=== PATIENT | female | born 1950 ===

== ENCOUNTER 2020-05-18 20:25 | Inpatient (IN) | payer MEDICARE, OTHER ==
[~2020-05-18] VITALS: Ht 167.6 cm; Wt 84.1 kg
[2020-05-18] MEDS ORDERED: LORazepam 0.5 MG TABLET PO PRN (21:15)
[2020-05-18] MEDS ORDERED: CALCIUM CARBONATE 500 MG TAB.CHEW PO PRN (21:15)
[2020-05-18] MEDS ORDERED: ALBUTEROL SULFATE 2.5 MG/3 ML NEBU. IH PRN (21:15)
[2020-05-18] MEDS ORDERED: ALBUTEROL SULFATE 2.5 MG/3 ML NEBU. NEB PRN (21:15)
[2020-05-18] MEDS ORDERED: cloNIDine HCL 0.1 MG TABLET PO PRN (21:15)
[2020-05-18] MEDS ORDERED: POLYETHYLENE GLYCOL 3350 17 GM PACKET. PO PRN (21:15)
[2020-05-18] MEDS ORDERED: ACETAMINOPHEN 500 MG TABLET PO PRN (21:15)
[2020-05-18] MEDS ORDERED: CLON0.1T PO (21:38)
[2020-05-18] MEDS ORDERED: AMLO5TAB10 PO (21:38)
[2020-05-18] MEDS ORDERED: HYDR-2155 PO (21:38)
[2020-05-18] MEDS ORDERED: MONT10TA80 PO (21:38)
[2020-05-18] MEDS ORDERED: CALC500T31 PO (21:38)
[2020-05-18] MEDS ORDERED: ACET500T68 PO (21:38)
[2020-05-18] MEDS ORDERED: TIOT18CA IH (21:38)
[2020-05-18] MEDS ORDERED: CHOL10002 PO (21:38)
[2020-05-18] MEDS ORDERED: LOSA100T2 PO (21:38)
[2020-05-18] MEDS ORDERED: CARV25TA2 PO (21:38)
[2020-05-18] MEDS ORDERED: POLY17PO5 PO (21:38)
[2020-05-18] MEDS ORDERED: MOME13HF IH (21:38)
[2020-05-18] MEDS ORDERED: MELA5TAB20 PO (21:38)
[2020-05-18] MEDS ORDERED: ZIPR40CA2 PO ×2 (21:38)
[2020-05-18] MEDS ORDERED: LORA-254 PO (21:38)
[2020-05-18] MEDS ORDERED: ALBU2.5V8 IH (21:38)
[2020-05-18] MEDS ORDERED: ALBU2.5V5 NEB (21:38)
[2020-05-18] MEDS ORDERED: VITA1TAB19 PO (21:38)
[2020-05-18] MEDS ORDERED: CRESTOR5 MG PO (21:38)
[2020-05-18] MEDS ORDERED: ACETAMINOPHEN 325 MG TABLET PO PRN (21:45)
[2020-05-18] MEDS ORDERED: MAGNESIUM HYDROXIDE 2,400 MG/30 ML ORAL.SUSP. PO PRN (21:45)
[2020-05-18] MEDS ORDERED: MAG HYDROX/AL HYDROX/SIMETH 30 ML ORAL.SUSP PO PRN (21:45)
[2020-05-18] MEDS ORDERED: METHYL SALICYLATE/MENTHOL TOPICAL OINTMENT 57GM TUBE. TP PRN (21:45)
[2020-05-18 22:24] VITALS: BP 196/71
[2020-05-18] MEDS: LOSARTAN 50 MG TABLET. PO SCH (22:32)
[2020-05-18] MEDS: MONTELUKAST 10 MG TABLET. PO SCH (22:32)
[2020-05-18] MEDS: MELATONIN 3 MG TABLET PO SCH (22:32)
[2020-05-18] MEDS: ATORVASTATIN CALCIUM 20 MG TABLET PO SCH (22:32)
[2020-05-18] MEDS: ZIPRASIDONE 80 MG CAPSULE. PO SCH (22:32)
[2020-05-18] MEDS: HYDROcodone/APAP 5/325MG 1 TAB TABLET PO PRN (22:35)
--- NOTE | 2020-05-18 22:44 | PDOC ---
Exam Note: Mik Note: Please also refer to the separate dictated note~for this date of service dictated separately.~Patient seen individually. Discussed the patient with Nursing staff reviewed the chart.~Reviewed interim history and current functioning. Reviewed vital signs,~Labs/ Radiology~and current medications noted below. Continue current treatment with the changes noted in the dictated addendum note Assessment: Vital Signs/I&O: Vital Signs Date Time Temp Pulse Resp B/P (MAP) Pulse Ox O2 Delivery O2 Flow Rate FiO2 05/18/20 22:35 92 05/18/20 22:32 79 196/71 05/18/20 22:24 98.3 20 Current Medications: Meds: Current Medications Medications (Trade) Dose Ordered Sig/Justin Route PRN Reason Start Time Stop Time Status Last Admin Dose Admin Acetaminophen/ Hydrocodone Bitart (Lortab 5/325) 1 tab PRN Q4HRS PRN PO PAIN 05/18/20 21:15 05/18/20 22:35 Montelukast Sodium (Singulair) 10 mg HS PO 05/18/20 22:30 05/18/20 22:32 Ziprasidone (Geodon) 80 mg QHS PO 05/18/20 22:30 05/18/20 22:32 Losartan Potassium (Cozaar) 100 mg HS PO 05/18/20 22:30 05/18/20 22:32 Melatonin (Melatonin) 4.5 mg HS PO 05/18/20 22:30 05/18/20 22:32 Atorvastatin Calcium (Lipitor) 20 mg QHS PO 05/18/20 22:30 05/18/20 22:32 I have reviewed the current psychotropics carefully including drug interactions. Risk benefit ratio favors no change other than as noted in my dictated progress note. TYLER NEGRO MD May 18, 2020 22:44
--- NOTE | 2020-05-18 22:52 | NUR ---
Admission Note with Justification for Admission to [facility] Patient admitted to [facility] for protective oversight for emergency stabilization of acute psychiatric crisis. Pt admitted from: [facility]/ Matty HEALY Mode of arrival: Secure Transport Accompanied By: Secure Transport Precipitating behaviors that initiated intake and admission:anxiety, agitation, manic, defiant, guarded, paranoid, refusing medications, not sleeping, psychogenic polydipsia Description of failure of out patient attempts at stabilization in previous setting list behavior and medication trials: med changes at [facility] Behaviors and assessment findings upon admission: A/O x3, manic, particular, suspicious of medications Plan: Admit for protective oversight for adjustment and stabilization of medications, behaviors and mood. Intense treatment regimen including groups, medication adjustments, therapy, consistent regimen for ADL's, self care, and sleep hygiene. Daily monitoring by Inpatient staff, Psychiatry, and Medical Physician.
[2020-05-19 06:28] VITALS: BP 117/70
[2020-05-19 07:30] LABS: BASO % 1 % (0-3); EOS # 0.1 x10^3/uL (0.0-0.7); EOS % 2 % (0-3); HEMATOCRIT 35.1 % (36.0-47.0); HEMOGLOBIN 11.8 g/dL (12.0-15.5); LYMPH # 0.8 x10^3/uL (1.0-4.8); LYMPH % 12 % (24-48); MEAN CORPUSCULAR HEMOGLOBIN 29 pg (25-35); MEAN CORPUSCULAR HGB CONC 34 g/dL (31-37); MEAN CORPUSCULAR VOLUME 87 fL (79-100); MONO # 0.8 x10^3/uL (0.0-1.1); MONO % 11 % (0-9); NEUT % 74 % (31-73); PLATELET COUNT 430 x10^3/uL (140-400); RED BLOOD COUNT 4.05 x10^6/uL (3.50-5.40); RED CELL DISTRIBUTION WIDTH 13.4 % (11.5-14.5); WHITE BLOOD COUNT 6.7 x10^3/uL (4.0-11.0)
[2020-05-19 07:40] LABS: ALBUMIN 3.1 g/dL (3.4-5.0); ALBUMIN/GLOBULIN RATIO 0.9 (1.0-1.7); CALCIUM 8.7 mg/dL (8.5-10.1); CREATININE 0.8 mg/dL (0.6-1.0); GFR 70.9; MAGNESIUM 2.2 mg/dL (1.8-2.4); POTASSIUM 4.2 mmol/L (3.5-5.1); TOTAL BILIRUBIN 0.3 mg/dL (0.2-1.0); TOTAL PROTEIN 6.7 g/dL (6.4-8.2)
[2020-05-19] MEDS ORDERED: NON FORMULARY ITEM (Mometasone/Formoterol (Dulera 200 Mcg/5 Mcg Inhaler) 2 PUFF) IH SCH (09:00)
[2020-05-19] MEDS ORDERED: NON FORMULARY ITEM (Tiotropium Bromide (Spiriva) 18 MCG) IH SCH (09:00)
[2020-05-19] MEDS: FLUTICASONE/VILANTEROL 200/25 INHALER. INH SCH (10:16)
[2020-05-19] MEDS: ZIPRASIDONE 40 MG CAPSULE. PO SCH (10:21)
[2020-05-19] MEDS: VITAMIN B COMPLEX CAPSULE. PO SCH (10:22)
[2020-05-19] MEDS: amLODIPine BESYLATE 5 MG TABLET PO SCH (10:23)
[2020-05-19] MEDS: CHOLECALCIFEROL (VITAMIN D3) 1,000 UNIT TABLET PO SCH (10:24)
[2020-05-19] MEDS: CARVEDILOL 6.25 MG TABLET PO SCH ×3 (10:30→17:44)
[2020-05-19 10:32] VITALS: BP 154/86
--- NOTE | 2020-05-19 13:37 | NUR ---
Patient is demanding and stated "I pick and choose which medications I take". She refused Geodon, norvasc and miralax. She stated that her doctor gives her all of her Geodon at bed time. She doesn't believe in norvasc and she will not take miralax because she has "no troubles" with her bowels. Nurse provided education on each medication and patient continued to refuse to take them. Patient yelling for nurse to adjust her bed and then yelling for water. Patient is complaining that she cannot breathe when on 5L oxygen. Patient sat is 100% when checked. Patient ambulates ad merlyn bur uses wheel chair related to her oxygen tank when out of her room.
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
[2020-05-19 16:03] VITALS: BP 173/80
--- NOTE | 2020-05-19 16:27 | NUR ---
Patient has been demanding and rude most of the afternoon. When Dr Doran did her medical assessment, she was more concerned about his nationality and examining his "credentials". She proceeded to read the back of his badge out loud and then started to read the rest of the things on his badge reel. She was fixated on his name, saying it multiple times and then asking "are you an arab?" and she rudely stated that his name was "foreign" and that this nurse would be needed as an "harness cleaner". Patient yelled all of the answers to every question that Dr Doran asked her, as if Dr Doran was hard of hearing, yelling that she has fluid retention in her ankles and was laying with her feet above her heart, she insists that she must have caffeinated coffee "for the swelling" of her feet. She continues to state that she is leaving tomorrow and that she already has a psychiatrist from the [facility] and does not need inpatient psyche. She stated she is aware that she has HTN and insists she will only take Losartan with potassium, she stated that many times during the conversation. She was offered Lisinopril this morning for her BP but refused it. She was also demanding that her oxygen be turned up to 4L, which she does not need as she SATs at 96% on 2L, and she is demanding longer oxygen tubing. Nurse will return to room to discuss things further as patient was not asking any pertinent medical questions and was just continuing to be rude.
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
--- NOTE | 2020-05-19 17:00 | TX PLAN ---
Interdisciplinary Tx Plan Admission Information May 18, 2020 at 20:25 Legal Status (on Admission): Voluntary DPOA/Guardian Name: Cary Washington Contact Other Contact Name: Matty Gonzales Other Contact Verified Code Status: Full Code Allergies: Coded Allergies: No Known Drug Allergies (Unverified , 05/18/20) Diagnoses Primary Diagnosis: Bipolar D/O, depressed with psychotic features, Cognitive D/O, rule out Dementia Reasons for Admission: Agitated, Sig. Change Sleep, Suspicious/paranoid, Poor impulse control, Other Problem in Patient's Words: Her manic episodes have been increasing and are not properly managed Additional Admission Comments: According to the intake, she refuses medications at times, non-compliant with fluid restrictions, defiant, oppositional, guarded, paranoid, insomnia, calling her RESIDENTIAL at night, uncooperative, agitated, delusional and manic, dismisses staff, restless and fidgety. Problems Active Problems: resitive to medications manic non-compliance with fluid restriction Inactive Problems: None at this moment Pt Strengths/Limitations Ability for [place]: Poor Cognitive Functioning/Ability: Poor Communication Skills/Ability: Fair Financial Resources: Fair Insight/Judgement: Poor Intellectual Ability: Fair Physical Health: Poor Social Skills: Fair Stability in Family: Fair Stability in School/Work: Poor Verbal Skills: Fair Discharge Criteria Discharge Criteria: Able meet basic life need, No need for close observ., Adequate arrangements @DC, Improved behavior, Improved mood/thought Preliminary Discharge Plan Preliminary DC Plan: Assisted Living Special Precautions Fall Risk: Low Initial D/C Plan Pt at this time will plan to discharge back to [facility] once stable. Identified Discharge Needs: Psychiatric services Currently Utilized Resources Currently Utilized Resources/P: Primary Care Physician Psychiatric consultation Referrals Community Resources: Mental health services Identified Problems/Hx/Goals Objectives/Short-Term Goals Short Term Goals: Control abnormal behavior, Medication Stabilization, Promote Coping Skill Short Term Goals in Patient's: "I'm leaving here tonight" Interventions/Frequency Staff Interventions/Frequency&: Psychiatrist to assess pt at least 3x per week. Social Work to asses pt at least 2x per week. Nursing to assess medications, behaviors and complete 15 minute checks daily. Encourage group participation in activities or 1:1 engagement based of the activity dept. assessment. 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 Education: Did graduate high from [employer] Community Follow-up PCP mental health services Community Provider/Family Inpu: She has lived a very tumultuous life. The last 15 years have been her best and we'd like to make sure she can maintain longer [facility] Treatment Plan Explained Patient/Lead Sharepoint Developer had this treatment plan explained to him/her as indicated by the signature below and has been given the opportunity to ask questions and make suggestions: Date: Patient/Lead Sharepoint Developer Signature: Patient/Lead Sharepoint Developer Decline: SAQIB Hernandez May 19, 2020 17:00
--- NOTE | 2020-05-19 17:45 | NUR ---
Patient has taken her arm band of and is refusing to wear it because "Dr. Jimenez name" is on it and not her [facility] provider. Patient has stated multiple times that when we get an "Wallisian doctor" she will THINK about wearing the arm band. Patients current blood pressure is 173/80 and she is refusing to take her 1700 Coreg. She had also refused her 0900 Lisinopril. Nurse provided education to patient regarding the effects of unregulated high blood pressure on the body. We reviewed heart attack, stroke, etc. Patient is a Full code, nurse explained the CPR process to patient and told her that it might be required if she has a heart attack or stroke., Patient continued to refuse to take the medications. Patient yelled that the "Helmet of Salvation' was hers and that God will protect her. Patient yelling and rude in the dining room to staff and upsetting her table mates. Patient went to her room after dinner. Patient does not currently have a hospital ID band on her arm, she stated she will "take off every single one that is put on her".
[2020-05-19 18:20] LABS: THYROID STIM HORMONE (TSH) 1.117 uIU/mL (0.358-3.740)
[2020-05-19 19:11] LABS: THYROXINE 6.5 ug/dL (4.5-12.0)
[2020-05-19] MEDS: ATORVASTATIN CALCIUM 20 MG TABLET PO SCH ×2 (21:00→21:16)
[2020-05-19] MEDS: LOSARTAN 50 MG TABLET. PO SCH ×2 (21:00→21:16)
[2020-05-19] MEDS: ZIPRASIDONE 80 MG CAPSULE. PO SCH (21:14)
[2020-05-19] MEDS: MONTELUKAST 10 MG TABLET. PO SCH (21:15)
[2020-05-19] MEDS: MELATONIN 3 MG TABLET PO SCH (21:17)
[2020-05-19] MEDS: HYDROcodone/APAP 5/325MG 1 TAB TABLET PO PRN (21:57)
--- NOTE | 2020-05-19 22:31 | PDOC ---
Exam Note: Mik Note: Please also refer to the separate dictated note~for this date of service dictated separately.~Patient seen individually. Discussed the patient with Nursing staff reviewed the chart.~Reviewed interim history and current functioning. Reviewed vital signs,~Labs/ Radiology~and current medications noted below. Continue current treatment with the changes noted in the dictated addendum note Assessment: Vital Signs/I&O: Vital Signs Date Time Temp Pulse Resp B/P (MAP) Pulse Ox O2 Delivery O2 Flow Rate FiO2 05/19/20 21:57 Nasal Cannula 4.0 05/19/20 21:16 77 173/80 05/19/20 16:03 98.5 20 96 I & O 0 05/18/20 05/18/20 05/19/20 14:59 22:59 06:59 Intake Total 120 ml Balance 120 ml Labs: Laboratory Tests Test 05/19/20 06:37 White Blood Count 6.7 x10^3/uL (4.0-11.0) Red Blood Count 4.05 x10^6/uL (3.50-5.40) Hemoglobin 11.8 g/dL (12.0-15.5) L Hematocrit 35.1 % (36.0-47.0) L Mean Corpuscular Volume 87 fL (79-100) Mean Corpuscular Hemoglobin 29 pg (25-35) Mean Corpuscular Hemoglobin Concent 34 g/dL (31-37) Red Cell Distribution Width 13.4 % (11.5-14.5) Platelet Count 430 x10^3/uL (140-400) H Neutrophils (%) (Auto) 74 % (31-73) H Lymphocytes (%) (Auto) 12 % (24-48) L Monocytes (%) (Auto) 11 % (0-9) H Eosinophils (%) (Auto) 2 % (0-3) Basophils (%) (Auto) 1 % (0-3) Neutrophils # (Auto) 5.0 x10^3uL (1.8-7.7) Lymphocytes # (Auto) 0.8 x10^3/uL (1.0-4.8) L Monocytes # (Auto) 0.8 x10^3/uL (0.0-1.1) Eosinophils # (Auto) 0.1 x10^3/uL (0.0-0.7) Basophils # (Auto) 0.0 x10^3/uL (0.0-0.2) Sodium Level 137 mmol/L (136-145) Potassium Level 4.2 mmol/L (3.5-5.1) Chloride Level 98 mmol/L (98-107) Carbon Dioxide Level 37 mmol/L (21-32) H Anion Gap 2 (6-14) L Blood Urea Nitrogen 8 mg/dL (7-20) Creatinine 0.8 mg/dL (0.6-1.0) Estimated GFR (Cockcroft-Gault) 70.9 BUN/Creatinine Ratio 10 (6-20) Glucose Level 107 mg/dL (70-99) H Calcium Level 8.7 mg/dL (8.5-10.1) Magnesium Level 2.2 mg/dL (1.8-2.4) Iron Level 43 ug/dL (50-170) L Total Iron Binding Capacity 295 ug/dL (250-450) Iron Saturation 15 % (15-34) Total Bilirubin 0.3 mg/dL (0.2-1.0) Aspartate Amino Transferase (AST) 22 U/L (15-37) Alanine Aminotransferase (ALT) 32 U/L (14-59) Alkaline Phosphatase 60 U/L (46-116) Total Protein 6.7 g/dL (6.4-8.2) Albumin 3.1 g/dL (3.4-5.0) L Albumin/Globulin Ratio 0.9 (1.0-1.7) L Triglycerides Level 65 mg/dL (0-150) Cholesterol Level 158 mg/dL (0-200) LDL Cholesterol, Calculated 82 mg/dL (0-100) VLDL Cholesterol, Calculated 13 mg/dL (0-40) Non-HDL Cholesterol Calculated 95 mg/dL (0-129) HDL Cholesterol 63 mg/dL (40-60) H Cholesterol/HDL Ratio 2.0 Thyroid Stimulating Hormone (TSH) 1.117 uIU/mL (0.358-3.740) Thyroxine (T4) 6.5 ug/dL (4.5-12.0) Total Triiodothyronine (TT3) 86 ng/dL (71-180) Current Medications: Meds: Current Medications Medications (Trade) Dose Ordered Sig/Justin Route PRN Reason Start Time Stop Time Status Last Admin Dose Admin Vitamin D (Vitamin D3) 1,000 unit DAILY PO 05/19/20 09:00 05/19/20 10:24 Montelukast Sodium (Singulair) 10 mg HS PO 05/18/20 22:30 05/19/20 21:15 Ziprasidone (Geodon) 40 mg DAILY PO 05/19/20 09:00 05/19/20 10:21 Ziprasidone (Geodon) 80 mg QHS PO 05/18/20 22:30 05/19/20 21:14 Carvedilol (Coreg) 6.25 mg BIDWMEALS PO 05/19/20 08:00 05/19/20 10:30 Losartan Potassium (Cozaar) 100 mg HS PO 05/18/20 22:30 05/19/20 21:16 Melatonin (Melatonin) 4.5 mg HS PO 05/18/20 22:30 05/19/20 21:17 Atorvastatin Calcium (Lipitor) 20 mg QHS PO 05/18/20 22:30 05/18/20 22:32 Vitamin B Complex 1 cap DAILY PO 05/19/20 09:00 05/19/20 10:22 Fluticasone/ Vilanterol (Breo Ellipta 200-25 Mcg) 1 puff DAILY INH 05/19/20 09:00 05/19/20 10:16 I have reviewed the current psychotropics carefully including drug interactions. Risk benefit ratio favors no change other than as noted in my dictated progress note. Diagnosis: Problems: (1) Bipolar 1 disorder, manic, moderate SRUTHI,TYLER Khanna MD May 19, 2020 22:31
[2020-05-20 01:07] LABS: HEMOGLOBIN A1C 5.6 % (4.8-5.6)
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
--- NOTE | 2020-05-20 03:51 | CONS ---
DATE OF CONSULTATION: 05/19/2020 REASON FOR CONSULTATION: Medical management. HISTORY OF PRESENT ILLNESS: The patient is a 70-year-old female patient, currently residing at [facility], who was seen at [facility] and referred to this unit on account of being very anxious, agitated, manic like, defiant and oppositional, guarded and paranoid, refusing to participate in activities, refusing medication, not sleeping with psychogenic polydipsia. While here, she also refused Geodon, refused Norvasc. She said that she can only treat her blood pressure medication at night time with losartan and potassium. She also does not believe that diuretics are helpful and she has to lift her feet up and drink coffee to get rid of her fluid overload. During interviewing her, she was more concerned about what is written on my badge than answering any of my questions. All these symptoms apparently on a background of bipolar disorder, depressed with psychotic features, cognitive disorder and to rule out dementia. PAST MEDICAL HISTORY: Significant for hypertension, chronic obstructive pulmonary disease, chronic respiratory failure with hypoxia, obstructive sleep apnea, on CPAP. She has also chronic back pain. She insists that she wants to be on 4 to 5 liters continuously, although her oxygen saturation is between 96%-100% on 2 liters of oxygen. PAST SURGICAL HISTORY: Unremarkable. SOCIAL HISTORY: She is residing at [facility]. She does not smoke or drink alcohol. FAMILY HISTORY: Noncontributory. ALLERGIES: She has no known drug allergies. MEDICATIONS: She is currently on the following medications: Spiriva HandiHaler 1 inhalation once a day, albuterol sulfate 2 puffs every 4 hours and albuterol by nebulizer every 4 hours as needed and Crestor 5 mg at bedtime. She is on clonidine 0.1 mg every 4 hours, carvedilol 6.25 mg twice a day, amlodipine 5 mg once a day, losartan potassium 100 mg at bedtime, hydrocodone/APAP 5/325 one tablet every 4 hours, Tylenol 500 mg every 4, ziprasidone 80 mg at bedtime, ziprasidone 40 mg daily, lorazepam 0.5 mg every 6 hours, calcium carbonate 500 mg twice a day, Dulera 2 puffs twice a day, Singulair 10 mg at bedtime, polyethylene glycol 17 g daily, vitamin B complex one tablet once a day, cholecalciferol 25 mcg once a day, melatonin 5 mg at bedtime. PHYSICAL EXAMINATION: GENERAL: On examining her, she was resting with her feet elevated, in no apparent respiratory distress. There was no pallor, jaundice, cyanosis or thyromegaly. No jugular venous distention. Mild bilateral lower limb edema. VITAL SIGNS: Her heart rate was 77, blood pressure was 173/80, temperature was 98.5, respiratory rate was 20, and oxygen saturation was 96%. HEAD, EYES, EARS, NOSE AND THROAT: Showed normocephalic and atraumatic. NECK: Supple. HEART: As per examination in other places showed normal first and second heart sounds. No gallop, rub or murmur. CHEST: Shows central trachea, equally reduced expansion, reduced air entry, vesicular breath sounds. No crepitation or rhonchi. ABDOMEN: Slightly distended, soft, nontender. NEUROLOGIC: She is definitely awake, alert. All her cranial nerves seem grossly intact. EXTREMITIES: She moves extremities without difficulty. LABORATORY DATA: On admission showed a white cell count 6700, hemoglobin 11.8, hematocrit 35, MCV 87 and platelet count of 130,000 with normal manual differential. Her chemistry showed a serum sodium 137, potassium 4.2, chloride 98, bicarbonate 37, anion gap of 2, BUN 8, creatinine 0.8, estimated GFR was 71 mL per minute. Her glucose 107, calcium was 8.7, magnesium was 2.2. Total bilirubin, AST, ALT, alkaline phosphatase were normal. Total protein 6.7, albumin 3.1. ASSESSMENT AND PLAN: In summary, this is a 70-year-old female patient with multiple medical problems including hypertension, chronic obstructive pulmonary disease, chronic hypoxic respiratory failure, obstructive sleep apnea. She has also chronic back pain. She is clearly noncompliant and uncooperative with her medication. She only takes her losartan at night time and refused to take any other medication during the daytime. She has bizarre way of getting rid of her fluid overload by just elevating her feet and drinking coffee. She want to be in constant 4 to 5 liters of oxygen while her oxygen saturation is around 100% on 2 liters of oxygen; however, generally she seems to be medically stable. Her vital signs obviously showed very labile blood pressure and I would definitely discontinue clonidine because of the rebound effect. Her lab works are all within acceptable range. Obviously, her other lab works are still pending at the time of this dictation. Once they are viewed, I will make some necessary recommendation. Thank you, Dr. Watt, for allowing me to participate in the care of this patient. HORACIO RAMIREZ MD DR: SHAZIA/deana JOB#: [id number] / [id number]
[2020-05-20 05:58] VITALS: BP 188/81
--- NOTE | 2020-05-20 07:30 | NUR ---
Patient removed her hospital identification armband because "it doesn't say Dr Doran and it doesn't say DNR". Patient was admitted to Dr. Watt and patient record shows patient is a Full Code. Patient has DPOA and cannot change her own code status. Nurse discussed this with patient yesterday. Addendum: 05/20/20 at 1259 by SHOSHANA HEATH RN Patient agreeable to putting arm band back on after talking with tech. Patient now has arm band on.
--- NOTE | 2020-05-20 08:00 | NUR ---
Records request faxed to [facility] and [facility] for patients past psychiatric records per Dr. Watt request.
[2020-05-20] MEDS: HYDROcodone/APAP 5/325MG 1 TAB TABLET PO PRN ×2 (08:30→21:23)
[2020-05-20] MEDS: VITAMIN B COMPLEX CAPSULE. PO SCH (08:34)
[2020-05-20] MEDS: CHOLECALCIFEROL (VITAMIN D3) 1,000 UNIT TABLET PO SCH (08:34)
[2020-05-20] MEDS: CARVEDILOL 6.25 MG TABLET PO SCH ×2 (08:35→17:23)
[2020-05-20] MEDS: ZIPRASIDONE 40 MG CAPSULE. PO SCH (08:36)
[2020-05-20] MEDS: amLODIPine BESYLATE 5 MG TABLET PO SCH (08:37)
[2020-05-20] MEDS: FLUTICASONE/VILANTEROL 200/25 INHALER. INH SCH (08:38)
--- NOTE | 2020-05-20 10:34 | NUR ---
Patient refused to take her 0900 Geodon 40mg and amlodipine 5mg. She stated that she only takes Geodon at HS and never takes amlodipine, she only takes Losartan at HS. Education provided to patient, patient continued to refuse to take medications.
--- NOTE | 2020-05-20 12:43 | NUR ---
Patient spent the morning sleeping in her room between breakfast and dinner. She has been social with her tablemates at meals. She will take select medications only that she picks and chooses. Patient says "God Bless You' and similar things during every interaction with staff. Staff is unsure if she is being sarcastic or sincere. Possible religiosity, she spoke with peer about God, faith, etc during breakfast. Her daughter called to speak to her during lunch and stated she would call back.
--- NOTE | 2020-05-20 13:19 | NUR ---
FINN returned call to pt Cary goff as requested and ended up leaving a message asking for a returned phone call.
--- NOTE | 2020-05-20 13:22 | HP ---
ADMIT DATE: 05/19/2020 PSYCHIATRIC ADMISSION HISTORY/EVALUATION This late entry 05/19/2020 covers elements not covered in my initial note. SUBJECTIVE: I met with the patient evening of 05/19/2020. Previously discussed with Sapna Chester, coordinator of placement and reviewed information from [facility] and a psychiatric consult with Dr. Carbajal on 05/15/2020, recommending inpatient psychiatric stabilization for her bipolar disorder. IDENTIFYING DATA: The patient is a 70-year-old female referred as noted above from [facility] after she had a psychiatric consult with Dr. Carbajal. She has been extremely manic, agitated, anxious, defiant, difficult to redirect. She has been paranoid, psychotic, refusing to participate in activities, refusing medications, having marked insomnia, psychogenic polydipsia. She is grandiose, irritable with marked mood lability, has failed outpatient psychiatric interventions resulting in this referral. CHIEF COMPLAINT: "What congregational are you." Apparently prior to my visiting, the patient had been extremely upset, asking for the congregational of different staff members and attending physicians and extremely distraught, agitated. HISTORY OF PRESENT ILLNESS: The patient has a history of bipolar disorder. The patient has been treated outpatient in [place], [place] and recently has been extremely manic, grandiose, paranoid. The patient's behaviors have been deemed dangerous, unmanageable, and she has failed outpatient psychiatric interventions resulting in this referral. PAST PSYCHIATRIC HISTORY: As above. MEDICAL HISTORY: Positive for SIADH, hyponatremia, COPD, hypertension, chronic respiratory failure with hypoxia, obstructive sleep apnea with CPAP. DIET: Regular, 1300 mL fluid restriction. Takes medications whole with milk followed by water at night, ambulates ad merlyn. UA 05/11/2020 at [facility] was negative. CODE STATUS: Full code. ALLERGIES: Negative. CURRENT PSYCHOTROPICS: Melatonin 4.5 mg at bedtime, Geodon 80 mg at bedtime, 40 mg a.m., Ativan p.r.n., Zyprexa p.r.n. She remains on 4-5 liters oxygen continuous. FAMILY HISTORY: Noncontributory. SOCIAL HISTORY: No history of alcohol, drug abuse, physical, sexual or elder abuse. She is not known to be a perpetrator. REACTION TO HOSPITALIZATION: The patient accepting of it. ASSETS: Supportive family. MENTAL STATUS EXAMINATION: The patient was seen individually evening of 05/19/2020. She is extremely loud, hyperverbal, domineering almost disruptive, but much better towards the end of our visit. Speech coherent, rapid. Abstraction fair, computation impaired, language function intact, attention span short. Mood and affect labile and grandiose. No active suicidal or homicidal ideation. LABORATORY DATA: Reviewed. IMPRESSION: Bipolar 1 disorder, manic with psychotic features; anxiety disorder, unspecified; impulse control disorder, unspecified. Rest as above including chronic obstructive pulmonary disease with 4-5 liters oxygen and the patient is wanting even more oxygen. PLAN: Admit to Geropsychiatry Unit at [facility]. I will see the patient daily individually from a psychiatric standpoint. Medical followup with Dr. Doran/Dr. Bowie. Continue the patient on her current psychotropics. Consider adding Depakote as a mood stabilizer or lithium, adjusting the Geodon, may get an EKG to make sure QTC is unremarkable on the Geodon. Estimated length of stay 10-12 days. DISPOSITION: Plans possibly home with outpatient psychiatric treatment. She is being admitted by her power of criminal defense attorney, Cary Pina, her daughter. TYLER NEGRO MD DR: MICHELLE/deana JOB#: [id number] / [id number]
[2020-05-20 16:04] VITALS: BP 198/78
[2020-05-20] MEDS: DIVALPROEX ER 500 MG TAB.ER.24H PO SCH ×2 (21:00→21:03)
[2020-05-20] MEDS: ATORVASTATIN CALCIUM 20 MG TABLET PO SCH ×2 (21:00→21:04)
[2020-05-20] MEDS: MONTELUKAST 10 MG TABLET. PO SCH (21:02)
[2020-05-20] MEDS: ZIPRASIDONE 80 MG CAPSULE. PO SCH (21:03)
[2020-05-20] MEDS: MELATONIN 3 MG TABLET PO SCH (21:03)
[2020-05-20] MEDS: LOSARTAN 50 MG TABLET. PO SCH (21:03)
--- NOTE | 2020-05-20 22:31 | PDOC ---
Exam Note: Mik Note: Please also refer to the separate dictated note~for this date of service dictated separately.~Patient seen individually. Discussed the patient with Nursing staff reviewed the chart.~Reviewed interim history and current functioning. Reviewed vital signs,~Labs/ Radiology~and current medications noted below. Continue current treatment with the changes noted in the dictated addendum note Assessment: Vital Signs/I&O: Vital Signs Date Time Temp Pulse Resp B/P (MAP) Pulse Ox O2 Delivery O2 Flow Rate FiO2 05/20/20 21:23 Nasal Cannula 05/20/20 21:03 89 198/78 05/20/20 16:04 97.8 18 91 05/20/20 05:58 4.0 I & O 05/19/20 05/19/20 05/20/20 15:00 23:00 07:00 Intake Total 720 ml 600 ml Balance 720 ml 600 ml Current Medications: Meds: Current Medications Medications (Trade) Dose Ordered Sig/Justin Route PRN Reason Start Time Stop Time Status Last Admin Dose Admin Divalproex Sodium (Depakote Er) 500 mg QHS PO 05/20/20 21:00 05/20/20 21:03 I have reviewed the current psychotropics carefully including drug interactions. Risk benefit ratio favors no change other than as noted in my dictated progress note. Diagnosis: Problems: (1) Anxiety disorder, unspecified (2) Impulse control disorder, unspecified (3) Chronic obstructive pulmonary disease (COPD) (4) Bipolar 1 disorder, manic, moderate TYLER NEGRO MD May 20, 2020 22:31
--- NOTE | 2020-05-21 01:15 | NUR ---
Deepthi pt has been in her room she has been pleasant and social with staff. She is much calmer tonight and speaking in a normal tone, instead of yelling as last night. She took meds whole after ID of them in sealed pack and correct shape color and dose. She refused to take her Lipitor and Depakote. She was somewhat less somatic and made no racial comments tonight. PRN hydrocodone given HS and she has been sleeping well.
[2020-05-21] MEDS: HYDROcodone/APAP 5/325MG 1 TAB TABLET PO PRN ×4 (01:44→20:38)
--- NOTE | 2020-05-21 05:20 | NUR ---
Prn hydrocodone was given on request at 0144 and she has slept well since.
[2020-05-21 06:25] VITALS: BP 184/77
[2020-05-21] MEDS: CHOLECALCIFEROL (VITAMIN D3) 1,000 UNIT TABLET PO SCH (09:43)
[2020-05-21] MEDS: VITAMIN B COMPLEX CAPSULE. PO SCH (09:46)
[2020-05-21] MEDS: FLUTICASONE/VILANTEROL 200/25 INHALER. INH SCH (09:46)
--- NOTE | 2020-05-21 10:14 | NUR ---
WEEKLY NOTE: Pt is eating 75% of meals and sleeping on average 6 hours per night. Pt is very withdrawn to her room but comes out to meals; visiting mainly with peers. Pt is still refusing her morning Geodon and Nornicolasac. Pt is hyper-sabianist and tells everyone who walks out of her room "God Bless You". Pt did start on Depakote 500mg q HS with labs and levels on 05/23. Pt will plan to return to [facility] with the recommendation to start services at the [facility]. MICHELLE for the end of next week, latter part of the week after. SW to keep all parties up to date and finalize discharge plans when the time comes.
--- NOTE | 2020-05-21 11:45 | NUR ---
ACTIVITY THERAPY ASSESSMENT Completed based on observation, interview and notes. Pt. was in her room with the door closed. TRUCK TRAILER MECHANIC knocked and opened the door to find Pt. looking out the window, with a hand over her heart, reciting the Pledge of Allegiance. She explained she saw a flag and felt like she had to say it. She talked quickly and immediately asked who TRUCK TRAILER MECHANIC was and what she wanted. Pt. remembered TRUCK TRAILER MECHANIC lead a group the other day. Pt. was hyperverbal and jumped topics quickly, asked for housekeeping to bring fresh towels for her to dry her hands, asked to eat lunch in her room, explained how she was told to lay on her left side to reduce her blood pressure and was told a nurse was going to come back at a certain time to check her blood pressure but it had to be with her own cuff that was locked in her closet. She pointed out her bruised arms related to all the blood being drawn. She refuses to give any more blood. She went on to talk about needing her medication at a certain time, had several back injuries (claimed a chiropractor "royally" messed her up) that cause her left foot to swell sometimes. She went further, concerned about her personal belongings, needing to pay her rent by May 29 and sending off her DNR paperwork. Pt apologized for yelling at [facility] and appreciated her writing everything down. 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 Pt quickly clarified she has yet to see a social work job titles and her daughter has yet to talk to the social work job titles either. Pt. got on the topic of her hair and wanting certain products, then it went to liking a tattoo a CHAPTER RELATIONS ADMINISTRATOR had then she explained she wanted a tattoo and would get a little turtle on her ankle because she would catch turtles with her dad when they went mushroom hunting. Pt. was very concerned about her oxygen, what level she should be on, not having a long enough tubing to go to the bathroom and about her blood pressure. She talked about the doctors and how she didn't understand she couldn't talk to Sana Mustafa at the [facility] because that is who she worked with all the time. She said she'd cooperate with Dr. Watt, happy he wears "[place]" clothes. She talked briefly about Dr. Doran and thought she should have a medical bracelet with his name on it if the "piece work checker" was her doctor TRUCK TRAILER MECHANIC asked if Pt wanted to lay down while she tried to help pass along her concerns. Pt. was appreciative and agreed to rest, asked TRUCK TRAILER MECHANIC to close her door. TRUCK TRAILER MECHANIC spoke to Pt's SW about DNR paper work, rent, and [facility] contact. TRUCK TRAILER MECHANIC rejoined Pt, updated her and the two walked to lunch. Pt. complimented TRUCK TRAILER MECHANIC's shoes and shirt, found commonalities with horses and Pt. believes she is a fellow "country girl."Pt. struggled to caught her breath as they walked, asked for a moment to do so. She shared her leisure interests and hobbies: varinder chi, shopping over the phone, watching comedies or [employer], reading newspaper, Facebook, texting, volunteering, embroidery/needlework, Bible study/ caodaism. She explained she was here because a cook at her facility was black and to a white person and they had "mulatto" kids. She talked about cook making the taco salad too salty. Pt. is often withdrawn to room, manic behaviors, can be loud and slightly disruptive. Initial goal aimed to increase socialization and relaxation: Pt. will participate in at least three Activity Therapy groups per week.
[2020-05-21] MEDS: amLODIPine BESYLATE 5 MG TABLET PO SCH (12:51)
[2020-05-21] MEDS: CARVEDILOL 6.25 MG TABLET PO SCH ×2 (12:51→15:07)
[2020-05-21] MEDS: ZIPRASIDONE 40 MG CAPSULE. PO SCH (12:56)
--- NOTE | 2020-05-21 14:04 | NUR ---
Pt in room for morning meds and assessment. Pt resistive to medications, refused bp meds and geodon but took later during lunch when nurse explained that pt stay would be longer if she continues to resist medications.
[2020-05-21 15:55] VITALS: BP 195/76
[2020-05-21] MEDS: ZIPRASIDONE 80 MG CAPSULE. PO SCH (20:36)
[2020-05-21] MEDS: LOSARTAN 50 MG TABLET. PO SCH (20:37)
[2020-05-21] MEDS: MONTELUKAST 10 MG TABLET. PO SCH (20:38)
[2020-05-21] MEDS: MELATONIN 3 MG TABLET PO SCH (20:38)
[2020-05-21] MEDS: ATORVASTATIN CALCIUM 20 MG TABLET PO SCH (20:44)
[2020-05-21] MEDS: DIVALPROEX ER 500 MG TAB.ER.24H PO SCH (20:44)
--- NOTE | 2020-05-21 22:19 | PDOC ---
Exam Note: Mik Note: Please also refer to the separate dictated note~for this date of service dictated separately.~Patient seen individually. Discussed the patient with Nursing staff reviewed the chart.~Reviewed interim history and current functioning. Reviewed vital signs,~Labs/ Radiology~and current medications noted below. Continue current treatment with the changes noted in the dictated addendum note Assessment: Vital Signs/I&O: Vital Signs Date Time Temp Pulse Resp B/P (MAP) Pulse Ox O2 Delivery O2 Flow Rate FiO2 05/21/20 20:38 22 94 Nasal Cannula 05/21/20 20:37 68 180/75 05/21/20 15:55 97.8 05/21/20 06:25 3.0 I & O 05/20/20 05/20/20 05/21/20 15:00 23:00 07:00 Intake Total 600 ml 240 ml 120 ml Balance 600 ml 240 ml 120 ml Current Medications: I have reviewed the current psychotropics carefully including drug interactions. Risk benefit ratio favors no change other than as noted in my dictated progress note. Diagnosis: Problems: (1) Bipolar 1 disorder, manic, moderate (2) Chronic obstructive pulmonary disease (COPD) (3) Impulse control disorder, unspecified (4) Anxiety disorder, unspecified TYLER NEGRO MD May 21, 2020 22:19
--- NOTE | 2020-05-21 23:51 | NUR ---
Pt in room at time of Dr. Watt visit and during assessment and med pass. She had a lengthy written list of things she felt she needed. Pt was resistive and argumentative with Dr. Watt and this nurse about her Geodon and Depakote prescriptions. Pt insisted her Geodon at [facility] is real Geodon and all purple but this one is the generic and different colors (blue and pink) and does not affect her as positively as the name brand version does. With encouragement, she expressed she would "think about taking the Depakote with the generic Geodon." She also requested that she could have a phone visit with her outside psychologist "Dr. Mustafa" to get a second opinion about taking the medications together. With encouragement pt did take the generic Geodon but insisted that she only get it at night and that it won't help her like the other one does (name brand). Pt wanted to know why she was taking 4.5mg of Melatonin instead of the 10mg she takes at home but with encouragement took the melatonin "just for today." Pt refused the Lipitor, insisting that we were told only Crestor helps her. Pt requested Lortab for pain. She asked that I review each med with her before scanning it then show it to her before opening it, then show it to her after opening it then identify it again individually before she swallowed it. Assured pt I would bring her concerns to the attention of the physician.
--- NOTE | 2020-05-22 05:09 | NUR ---
Pt called this nurse into her room to tell me that she decided she "would take the Depakote Dr. Watt prescribed to get out of here faster." She also insisted on a call to Dr. Mustafa again. It was explained that Dr. Watt is the house psychiatrist and he makes the decisions here and that Dr. Mustafa does not round here so that would not be possible. Pt started pacing and looking more agitated than before started talking about her "list made since Monday"...and all the things she needed in her locker and was "missing"..."red and black [place] bag that is sister's, pink and black bag, pink and blue hip hugger underwear, beige Vicky's Secret panties to wear under white clothes, [employer] blue jeans, pajama pants, washcloths..." Pt states she can't get ready in the morning without them. Assured pt would pass on to next shift. Explained combination of morning and evening Geodon administration. Pt seemed to understand for the moment with nonacceptance. Will continue to monitor.
[2020-05-22 06:20] VITALS: BP 166/77
[2020-05-22] MEDS: VITAMIN B COMPLEX CAPSULE. PO SCH (07:57)
[2020-05-22] MEDS: amLODIPine BESYLATE 5 MG TABLET PO SCH ×2 (07:57→08:28)
[2020-05-22] MEDS: CHOLECALCIFEROL (VITAMIN D3) 1,000 UNIT TABLET PO SCH (07:57)
[2020-05-22] MEDS: CARVEDILOL 6.25 MG TABLET PO SCH ×3 (07:58→19:35)
[2020-05-22] MEDS: FLUTICASONE/VILANTEROL 200/25 INHALER. INH SCH (07:58)
[2020-05-22 15:38] VITALS: BP 175/80
--- NOTE | 2020-05-22 16:20 | NUR ---
Pt very hyperverbal and had multiple c/o. Asked pt to slow down to address concerns one at a time. Pt states she is fasting today and plans to stay in room. Is only going to drink juice and milk for meals. Pt could not elaborate on her specific protestant. Pt BP high in am. Refused BP meds but took B12 and Vit D. Pt states she can just rest and lay on left side, this will lower her BP. Informed pt of risks of letting BP stay that high.
--- NOTE | 2020-05-22 16:30 | NUR ---
Per Dr Watt request, pharmacy consulted regarding pt non-compliance with BID dosing of Geodon. Dose was changed to total dose at HS. Pharmacy stated increased SE effects may be noted. Recommended EKG in 2-3 days and again in 1 week to monitor for QTc changes.
[2020-05-22] MEDS: DIVALPROEX ER 500 MG TAB.ER.24H PO SCH (19:20)
[2020-05-22] MEDS: MONTELUKAST 10 MG TABLET. PO SCH (19:20)
[2020-05-22] MEDS: ATORVASTATIN CALCIUM 20 MG TABLET PO SCH (19:20)
[2020-05-22] MEDS: LOSARTAN 50 MG TABLET. PO SCH (19:20)
[2020-05-22] MEDS: MELATONIN 3 MG TABLET PO SCH (19:36)
[2020-05-22] MEDS: ZIPRASIDONE 60 MG CAPSULE. PO SCH (19:36)
--- NOTE | 2020-05-22 22:30 | PDOC ---
Exam Note: Mik Note: Please also refer to the separate dictated note~for this date of service dictated separately.~Patient seen individually. Discussed the patient with Nursing staff reviewed the chart.~Reviewed interim history and current functioning. Reviewed vital signs,~Labs/ Radiology~and current medications noted below. Continue current treatment with the changes noted in the dictated addendum note Assessment: Vital Signs/I&O: Vital Signs Date Time Temp Pulse Resp B/P (MAP) Pulse Ox O2 Delivery O2 Flow Rate FiO2 05/22/20 19:35 83 175/80 05/22/20 15:38 97.4 20 97 4.0 05/22/20 06:20 Room Air I & O 05/21/20 05/21/20 05/22/20 15:00 23:00 07:00 Intake Total 600 ml 240 ml 120 ml Balance 600 ml 240 ml 120 ml Current Medications: Meds: Current Medications Medications (Trade) Dose Ordered Sig/Justin Route PRN Reason Start Time Stop Time Status Last Admin Dose Admin Ziprasidone (Geodon) 120 mg HS PO 05/22/20 21:00 05/22/20 19:36 Carvedilol (Coreg) 6.25 mg BID PO 05/22/20 21:00 05/22/20 19:35 Melatonin (Melatonin) 10.5 mg HS PO 05/22/20 21:00 05/22/20 19:36 I have reviewed the current psychotropics carefully including drug interactions. Risk benefit ratio favors no change other than as noted in my dictated progress note. Diagnosis: Problems: (1) Bipolar 1 disorder, manic, moderate (2) Chronic obstructive pulmonary disease (COPD) (3) Impulse control disorder, unspecified (4) Anxiety disorder, unspecified TYLER NEGRO MD May 22, 2020 22:30
--- NOTE | 2020-05-22 23:56 | NUR ---
Pt located in her room all evening. Pt irritable, rude and demanding. Pt refused her Depakote, Lipitor and Coreg medications. This RN attempted to educate pt on the importance of taking all of her medications, however pt was adamant that she was not going to take these certain medications. Pt was informed that she will not receive any PRN medications until she is compliant with her scheduled medications. Pt sarcastically thanked this nurse. Pt refused her shower this evening also.
[2020-05-23 06:52] VITALS: BP 172/91
--- NOTE | 2020-05-23 07:19 | PDOC ---
Exam Note: Mik Note: This note is a late entry for 05/20/2020 covers elements not covered in my initial note. Subjective: The patient was seen individually in the evening of 05/20/2020. Per Alana WATT, we reviewed the patients history. She has been treated at the [facility]. In the morning, she refused Geodon and Norvasc and states Geodon makes her sleepy. She has been hyper-presybeterian having presybeterian conversations, talking about the Lord with one of the other patients on the unit who is quite manic and psychotic. She was cooperative with showers. She slept 6-1/4 hours previous night. We have requested records from the [facility]. Review of Systems: No CV, , pulmonary, eye system symptoms on review. Mental Status Exam: Reasonably oriented. Speech coherent, rapid at times. Abstraction fair. Computation impaired. Language function intact. Attention span short. Mood and affect remains quite grandiose, manic. Laboratory Data: Reviewed. Impression: Bipolar disorder manic with psychotic features, anxiety disorder unspecified, impulse control disorder unspecified. Plan: Continue the patient on her current psychotropics. Geodon at current dosage. We may consider changing it all to the nighttime, maintaining melatonin 4.5 mg h.s., Ativan p.r.n., Zyprexa p.r.n. Start Depakote ER 500 mg h.s. as a mood stabilizer. Check CBC, CMP, valproic acid level in 3 days. Adjust further as clinically indicated. Assessment: Vital Signs/I&O: Vital Signs Date Time Temp Pulse Resp B/P (MAP) Pulse Ox O2 Delivery O2 Flow Rate FiO2 05/23/20 06:52 98.0 67 16 172/91 (118) 99 3.0 05/22/20 06:20 Room Air I & O 05/22/20 05/22/20 05/23/20 15:00 23:00 07:00 Intake Total 360 ml 580 ml Balance 360 ml 580 ml Current Medications: Meds: Current Medications Medications (Trade) Dose Ordered Sig/Justin Route PRN Reason Start Time Stop Time Status Last Admin Dose Admin Ziprasidone (Geodon) 120 mg HS PO 05/22/20 21:00 05/22/20 19:36 Carvedilol (Coreg) 6.25 mg BID PO 05/22/20 21:00 05/22/20 19:35 Melatonin (Melatonin) 10.5 mg HS PO 05/22/20 21:00 05/22/20 19:36 I have reviewed the current psychotropics carefully including drug interactions. Risk benefit ratio favors no change other than as noted in my dictated progress note. Diagnosis: Problems: (1) Bipolar 1 disorder, manic, moderate (2) Chronic obstructive pulmonary disease (COPD) (3) Impulse control disorder, unspecified (4) Anxiety disorder, unspecified TYLER NEGRO MD May 23, 2020 07:19
--- NOTE | 2020-05-23 07:47 | PDOC ---
Exam Note: Mik Note: This note is a late entry for 05/21/2020 covers elements not covered in my initial note. Subjective: The patient was seen individually in the morning of 05/21/2020 with treatment team meeting with [place] (social service staff), [facility] staff. Appetite average is 70%. She slept 5-1/2 hours previous night, somewhat withdrawn into her room, but hyperverbal. I had a very lengthy session with Melinda WATT as part of this session as well. She spends much time in her room, up for meals, refused the a.m. Geodon and Norvasc, attended one group. She remains hyperverbal, grandiose, hyper-denominational. Also discussed with Sana WATT in the evening. She reluctantly took her morning Geodon but insist she will only take it at night. She was refusing the Depakote. We had a lengthy discussion. She may agree to reconsider. Review of Systems: Vague somatic symptoms. No CV, , pulmonary, eye system symptoms on review. Mental Status Exam: Reasonably oriented. Speech coherent, rapid at times. Abstraction fair. Computation impaired. Language function intact. Attention span short. Mood and affect remains grandiose. Laboratory Data: Reviewed. Impression: Bipolar disorder manic with psychotic features, anxiety disorder unspecified, impulse control disorder unspecified. Plan: Continue psychotropics from initial note. She has been living at [facility] in [place]. Reviewed history at length. We will adjust Depakote to reach therapeutic level. Assessment: Vital Signs/I&O: Vital Signs Date Time Temp Pulse Resp B/P (MAP) Pulse Ox O2 Delivery O2 Flow Rate FiO2 05/23/20 06:52 98.0 67 16 172/91 (118) 99 3.0 05/22/20 06:20 Room Air I & O 05/22/20 05/22/20 05/23/20 14:59 22:59 06:59 Intake Total 360 ml 580 ml Balance 360 ml 580 ml Current Medications: Meds: Current Medications Medications (Trade) Dose Ordered Sig/Justin Route PRN Reason Start Time Stop Time Status Last Admin Dose Admin Ziprasidone (Geodon) 120 mg HS PO 05/22/20 21:00 05/22/20 19:36 Carvedilol (Coreg) 6.25 mg BID PO 05/22/20 21:00 05/22/20 19:35 Melatonin (Melatonin) 10.5 mg HS PO 05/22/20 21:00 05/22/20 19:36 I have reviewed the current psychotropics carefully including drug interactions. Risk benefit ratio favors no change other than as noted in my dictated progress note. Diagnosis: Problems: (1) Bipolar 1 disorder, manic, moderate (2) Chronic obstructive pulmonary disease (COPD) (3) Impulse control disorder, unspecified (4) Anxiety disorder, unspecified TYLER NEGRO MD May 23, 2020 07:47
[2020-05-23] MEDS: FLUTICASONE/VILANTEROL 200/25 INHALER. INH SCH (07:51)
[2020-05-23] MEDS: CHOLECALCIFEROL (VITAMIN D3) 1,000 UNIT TABLET PO SCH (07:51)
[2020-05-23] MEDS: amLODIPine BESYLATE 5 MG TABLET PO SCH (07:52)
[2020-05-23] MEDS: VITAMIN B COMPLEX CAPSULE. PO SCH (07:52)
[2020-05-23] MEDS: CARVEDILOL 6.25 MG TABLET PO SCH ×2 (07:52→20:31)
[2020-05-23] MEDS: DIVALPROEX ER 500 MG TAB.ER.24H PO SCH (08:54)
[2020-05-23 08:58] LABS: BASO # 0.1 x10^3/uL (0.0-0.2); BASO % 1 % (0-3); EOS # 0.1 x10^3/uL (0.0-0.7); EOS % 1 % (0-3); HEMOGLOBIN 12.3 g/dL (12.0-15.5); LYMPH # 0.8 x10^3/uL (1.0-4.8); LYMPH % 10 % (24-48); MEAN CORPUSCULAR HEMOGLOBIN 29 pg (25-35); MEAN CORPUSCULAR HGB CONC 33 g/dL (31-37); MEAN CORPUSCULAR VOLUME 87 fL (79-100); MONO # 0.7 x10^3/uL (0.0-1.1); MONO % 8 % (0-9); NEUT # 6.9 x10^3uL (1.8-7.7); NEUT % 81 % (31-73); PLATELET COUNT 443 x10^3/uL (140-400); RED BLOOD COUNT 4.23 x10^6/uL (3.50-5.40); RED CELL DISTRIBUTION WIDTH 13.6 % (11.5-14.5); WHITE BLOOD COUNT 8.6 x10^3/uL (4.0-11.0)
[2020-05-23 09:22] LABS: ALBUMIN 3.3 g/dL (3.4-5.0); ALBUMIN/GLOBULIN RATIO 0.9 (1.0-1.7); ALK PHOS 67 U/L (46-116); ALT (SGPT) 30 U/L (14-59); ANION GAP 5 (6-14); AST (SGOT) 21 U/L (15-37); BLOOD UREA NITROGEN 8 mg/dL (7-20); BUN/CREATININE RATIO 11 (6-20); CARBON DIOXIDE 32 mmol/L (21-32); CHLORIDE 101 mmol/L (98-107); CREATININE 0.7 mg/dL (0.6-1.0); GFR 82.7; GLUCOSE 118 mg/dL (70-99); POTASSIUM 4.5 mmol/L (3.5-5.1); SODIUM 138 mmol/L (136-145); TOTAL BILIRUBIN 0.4 mg/dL (0.2-1.0); TOTAL PROTEIN 7.1 g/dL (6.4-8.2)
[2020-05-23] MEDS: HYDROcodone/APAP 5/325MG 1 TAB TABLET PO PRN ×2 (10:40→21:30)
[2020-05-23 10:50] LABS: VAL ACID < 3 mcg/mL (50-100)
[2020-05-23] MEDS: cloNIDine TTS-3 1 PATCH PATCH TD SCH (11:40)
[2020-05-23 16:07] VITALS: BP 176/66
--- NOTE | 2020-05-23 18:00 | NUR ---
Pt up adl in room and out for lunch and supper. Has had multiple complaints. Remains hyperverbal. C/O pain x1 Lortab given. Pt decided she would take her Depakote today. Gave with am meds. Dr Watt aware.
[2020-05-23] MEDS: ZIPRASIDONE 60 MG CAPSULE. PO SCH (20:29)
[2020-05-23] MEDS: MELATONIN 3 MG TABLET PO SCH (20:29)
[2020-05-23] MEDS: LOSARTAN 50 MG TABLET. PO SCH (20:30)
[2020-05-23] MEDS: MONTELUKAST 10 MG TABLET. PO SCH (20:30)
[2020-05-23] MEDS: ATORVASTATIN CALCIUM 20 MG TABLET PO SCH (21:00)
--- NOTE | 2020-05-23 22:19 | PDOC ---
Exam Note: Mik Note: Please also refer to the separate dictated note~for this date of service dictated separately.~Patient seen individually. Discussed the patient with Nursing staff reviewed the chart.~Reviewed interim history and current functioning. Reviewed vital signs,~Labs/ Radiology~and current medications noted below. Continue current treatment with the changes noted in the dictated addendum note Assessment: Vital Signs/I&O: Vital Signs Date Time Temp Pulse Resp B/P (MAP) Pulse Ox O2 Delivery O2 Flow Rate FiO2 05/23/20 21:30 20 97 Nasal Cannula 4.0 05/23/20 20:31 94 182/75 05/23/20 16:07 98.3 I & O 0 05/22/20 05/22/20 05/23/20 15:00 23:00 07:00 Intake Total 360 ml 580 ml Balance 360 ml 580 ml Labs: Laboratory Tests Test 05/23/20 08:15 White Blood Count 8.6 x10^3/uL (4.0-11.0) Red Blood Count 4.23 x10^6/uL (3.50-5.40) Hemoglobin 12.3 g/dL (12.0-15.5) Hematocrit 37.0 % (36.0-47.0) Mean Corpuscular Volume 87 fL (79-100) Mean Corpuscular Hemoglobin 29 pg (25-35) Mean Corpuscular Hemoglobin Concent 33 g/dL (31-37) Red Cell Distribution Width 13.6 % (11.5-14.5) Platelet Count 443 x10^3/uL (140-400) H Neutrophils (%) (Auto) 81 % (31-73) H Lymphocytes (%) (Auto) 10 % (24-48) L Monocytes (%) (Auto) 8 % (0-9) Eosinophils (%) (Auto) 1 % (0-3) Basophils (%) (Auto) 1 % (0-3) Neutrophils # (Auto) 6.9 x10^3uL (1.8-7.7) Lymphocytes # (Auto) 0.8 x10^3/uL (1.0-4.8) L Monocytes # (Auto) 0.7 x10^3/uL (0.0-1.1) Eosinophils # (Auto) 0.1 x10^3/uL (0.0-0.7) Basophils # (Auto) 0.1 x10^3/uL (0.0-0.2) Sodium Level 138 mmol/L (136-145) Potassium Level 4.5 mmol/L (3.5-5.1) Chloride Level 101 mmol/L (98-107) Carbon Dioxide Level 32 mmol/L (21-32) Anion Gap 5 (6-14) L Blood Urea Nitrogen 8 mg/dL (7-20) Creatinine 0.7 mg/dL (0.6-1.0) Estimated GFR (Cockcroft-Gault) 82.7 BUN/Creatinine Ratio 11 (6-20) Glucose Level 118 mg/dL (70-99) H Calcium Level 9.0 mg/dL (8.5-10.1) Total Bilirubin 0.4 mg/dL (0.2-1.0) Aspartate Amino Transferase (AST) 21 U/L (15-37) Alanine Aminotransferase (ALT) 30 U/L (14-59) Alkaline Phosphatase 67 U/L (46-116) Total Protein 7.1 g/dL (6.4-8.2) Albumin 3.3 g/dL (3.4-5.0) L Albumin/Globulin Ratio 0.9 (1.0-1.7) L Valproic Acid Level < 3 mcg/mL (50-100) L Valproic Acid Last Dose Date 05/22/20 Valproic Acid Last Dose Time 2100 Current Medications: Meds: Current Medications Medications (Trade) Dose Ordered Sig/Justin Route PRN Reason Start Time Stop Time Status Last Admin Dose Admin Clonidine HCl (Catapres Tts-3) 1 patch WEEKLY TD 05/23/20 11:40 05/23/20 11:40 I have reviewed the current psychotropics carefully including drug interactions. Risk benefit ratio favors no change other than as noted in my dictated progress note. Diagnosis: Problems: (1) Bipolar 1 disorder, manic, moderate (2) Chronic obstructive pulmonary disease (COPD) (3) Impulse control disorder, unspecified (4) Anxiety disorder, unspecified TYLER NEGRO MD May 23, 2020 22:19
--- NOTE | 2020-05-24 02:25 | NUR ---
Medications administered prior to pt evening shower. Pt insisted on only a couple of medications and that all others be given after shower d/t misunderstanding of how they are processed in the body. Process was discussed with pt and she was encouraged to take all of her medications except her pain pill which she could take after the shower. Pt complied with medications and shower. Pt expressed concern about her clothing that was currently being laundered. Pt assured she will get them back. Daughter called to check in with pt. Pt insisted on door closed of her room while they talk. Pt seems pleasant when not making demands; occasionally gets agitated if her demands aren't met precisely and quickly. Will continue to monitor.
--- NOTE | 2020-05-24 02:39 | NUR ---
About an hour ago, pt was sleeping and abruptly woke up and pushed her bathroom call light to signal for staff to come to her room. Pt told FURNITURE REFINISHER that she has "water on her table" (pointing to her cup), "there's the ice," and told the FURNITURE REFINISHER that someone had been taking her blood pressure every minute and it was cutting off her oxygen. She also insisted the FURNITURE REFINISHER not take anything off her table. Prior to falling asleep, conversations had occurred earlier in the evening between this nurse and pt about her blood pressure and medications. Pt was asked if she would like some of her items on table moved to another location because pt expressed worry about knocking something over. Also pt had asked this nurse to get her a cup of ice and water prior to falling asleep. Pt consoled and encouraged to go back to sleep.
--- NOTE | 2020-05-24 03:14 | NUR ---
Pt told ANGLE SHEAR OPERATOR during rounds that she "can't feel her own pulse while spitting." Pt gave ANGLE SHEAR OPERATOR a cup of water with green sputum in it. Pt also told ANGLE SHEAR OPERATOR she would spit on the floor. Pt up and about writing lists. Will continue to monitor.
[2020-05-24 06:43] VITALS: BP 156/87
--- NOTE | 2020-05-24 07:21 | PDOC ---
Exam Note: Mik Note: This note is a late entry for 05/22/2020 covers elements not covered in my initial note. Subjective: The patient was seen individually in the evening of 05/22/2020. Per Charity WATT, she slept 6-1/2 hours previous night. She states she has been fasting for 24 hours just drinking juice and milk only. She insists she has been taking melatonin 10 mg h.s. for several years and we will maintain this even though I prefer not to use more than 6 mg h.s. She refused Depakote previous night but states she will take it during the day. She is taking Geodon 120 mg at night. We will check with the pharmacy. Follow up with EKG for QTC interval and make sure from the pharmacist there is no contraindication to use entire dosage at night. I met with her in her room. Review of Systems: Vague somatic symptoms. No CV, , eye system symptoms on review. She complains of being short of breath, wanting additional oxygen which is a constant theme with her. She was saluting me as I met with her in her room, somewhat grandiose. Mental Status Exam: Reasonably oriented. Speech coherent, pressured. Abstraction fair. Computation impaired. Language function intact. Attention span short. Mood and affect remains grandiose, labile. No suicidal or homicidal ideation. Laboratory Data: Reviewed. Impression: Bipolar disorder manic with psychotic features, anxiety disorder unspecified, impulse control disorder unspecified. COPD. Respiratory failure. Obstructive sleep apnea. Plan: Continue current psychotropics from initial note. We will check an EKG. Maintain Geodon 120 mg h.s., Depakote ER 500 mg h.s. Encourage compliance. Follow labs level on the Depakote on 05/23/2020. Adjust further as clinically indicated. Assessment: Vital Signs/I&O: Vital Signs Date Time Temp Pulse Resp B/P (MAP) Pulse Ox O2 Delivery O2 Flow Rate FiO2 05/24/20 06:43 97.8 71 20 156/87 (110) 100 05/23/20 22:30 Nasal Cannula 4.0 I & O 05/23/20 05/23/20 05/24/20 15:00 23:00 07:00 Intake Total 480 ml 100 ml 120 ml Balance 480 ml 100 ml 120 ml Labs: Laboratory Tests Test 05/23/20 08:15 White Blood Count 8.6 x10^3/uL (4.0-11.0) Red Blood Count 4.23 x10^6/uL (3.50-5.40) Hemoglobin 12.3 g/dL (12.0-15.5) Hematocrit 37.0 % (36.0-47.0) Mean Corpuscular Volume 87 fL (79-100) Mean Corpuscular Hemoglobin 29 pg (25-35) Mean Corpuscular Hemoglobin Concent 33 g/dL (31-37) Red Cell Distribution Width 13.6 % (11.5-14.5) Platelet Count 443 x10^3/uL (140-400) H Neutrophils (%) (Auto) 81 % (31-73) H Lymphocytes (%) (Auto) 10 % (24-48) L Monocytes (%) (Auto) 8 % (0-9) Eosinophils (%) (Auto) 1 % (0-3) Basophils (%) (Auto) 1 % (0-3) Neutrophils # (Auto) 6.9 x10^3uL (1.8-7.7) Lymphocytes # (Auto) 0.8 x10^3/uL (1.0-4.8) L Monocytes # (Auto) 0.7 x10^3/uL (0.0-1.1) Eosinophils # (Auto) 0.1 x10^3/uL (0.0-0.7) Basophils # (Auto) 0.1 x10^3/uL (0.0-0.2) Sodium Level 138 mmol/L (136-145) Potassium Level 4.5 mmol/L (3.5-5.1) Chloride Level 101 mmol/L (98-107) Carbon Dioxide Level 32 mmol/L (21-32) Anion Gap 5 (6-14) L Blood Urea Nitrogen 8 mg/dL (7-20) Creatinine 0.7 mg/dL (0.6-1.0) Estimated GFR (Cockcroft-Gault) 82.7 BUN/Creatinine Ratio 11 (6-20) Glucose Level 118 mg/dL (70-99) H Calcium Level 9.0 mg/dL (8.5-10.1) Total Bilirubin 0.4 mg/dL (0.2-1.0) Aspartate Amino Transferase (AST) 21 U/L (15-37) Alanine Aminotransferase (ALT) 30 U/L (14-59) Alkaline Phosphatase 67 U/L (46-116) Total Protein 7.1 g/dL (6.4-8.2) Albumin 3.3 g/dL (3.4-5.0) L Albumin/Globulin Ratio 0.9 (1.0-1.7) L Valproic Acid Level < 3 mcg/mL (50-100) L Valproic Acid Last Dose Date 05/22/20 Valproic Acid Last Dose Time 2100 Current Medications: Meds: Current Medications Medications (Trade) Dose Ordered Sig/Justin Route PRN Reason Start Time Stop Time Status Last Admin Dose Admin Clonidine HCl (Catapres Tts-3) 1 patch WEEKLY TD 05/23/20 11:40 05/23/20 11:40 I have reviewed the current psychotropics carefully including drug interactions. Risk benefit ratio favors no change other than as noted in my dictated progress note. Diagnosis: Problems: (1) Bipolar 1 disorder, manic, moderate (2) Chronic obstructive pulmonary disease (COPD) (3) Impulse control disorder, unspecified (4) Anxiety disorder, unspecified TYLER NEGRO MD May 24, 2020 07:21
--- NOTE | 2020-05-24 07:43 | PDOC ---
Exam Note: Mik Note: This note is a late entry for 05/23/2020 covers elements not covered in my initial note. Subjective: The patient was seen individually in the evening of 05/23/2020. Per Charity WATT she slept 3-1/2 hours previous night, somewhat manic, grandiose, again saluting nursing staff and repeatedly saluting as I met with her in her room in the evening. She refused Depakote and her antihypertensive meds x2, took the h.s. dosage and some of her meds rehabilitation program coordinator including Depakote. We will check an EKG and repeat in one week. Review of Systems: Shortness of breath. Impaired ambulation. No CV, , eye system symptoms on review. Mental Status Exam: Reasonably oriented. Speech coherent, rapid at times. Abstraction fair. Computation impaired. Language function intact. Attention span short. Mood and affect remains grandiose, manic. Laboratory Data: Reviewed. Impression: Bipolar disorder manic with psychotic features, anxiety disorder un specified, impulse control disorder unspecified. Plan: Continue psychotropics from initial note. Encourage compliance. Adjust Depakote to reach therapeutic level. Assessment: Vital Signs/I&O: Vital Signs Date Time Temp Pulse Resp B/P (MAP) Pulse Ox O2 Delivery O2 Flow Rate FiO2 05/24/20 06:43 97.8 71 20 156/87 (110) 100 05/23/20 22:30 Nasal Cannula 4.0 I & O 05/23/20 05/23/20 05/24/20 15:00 23:00 07:00 Intake Total 480 ml 100 ml 120 ml Balance 480 ml 100 ml 120 ml Labs: Laboratory Tests Test 05/23/20 08:15 White Blood Count 8.6 x10^3/uL (4.0-11.0) Red Blood Count 4.23 x10^6/uL (3.50-5.40) Hemoglobin 12.3 g/dL (12.0-15.5) Hematocrit 37.0 % (36.0-47.0) Mean Corpuscular Volume 87 fL (79-100) Mean Corpuscular Hemoglobin 29 pg (25-35) Mean Corpuscular Hemoglobin Concent 33 g/dL (31-37) Red Cell Distribution Width 13.6 % (11.5-14.5) Platelet Count 443 x10^3/uL (140-400) H Neutrophils (%) (Auto) 81 % (31-73) H Lymphocytes (%) (Auto) 10 % (24-48) L Monocytes (%) (Auto) 8 % (0-9) Eosinophils (%) (Auto) 1 % (0-3) Basophils (%) (Auto) 1 % (0-3) Neutrophils # (Auto) 6.9 x10^3uL (1.8-7.7) Lymphocytes # (Auto) 0.8 x10^3/uL (1.0-4.8) L Monocytes # (Auto) 0.7 x10^3/uL (0.0-1.1) Eosinophils # (Auto) 0.1 x10^3/uL (0.0-0.7) Basophils # (Auto) 0.1 x10^3/uL (0.0-0.2) Sodium Level 138 mmol/L (136-145) Potassium Level 4.5 mmol/L (3.5-5.1) Chloride Level 101 mmol/L (98-107) Carbon Dioxide Level 32 mmol/L (21-32) Anion Gap 5 (6-14) L Blood Urea Nitrogen 8 mg/dL (7-20) Creatinine 0.7 mg/dL (0.6-1.0) Estimated GFR (Cockcroft-Gault) 82.7 BUN/Creatinine Ratio 11 (6-20) Glucose Level 118 mg/dL (70-99) H Calcium Level 9.0 mg/dL (8.5-10.1) Total Bilirubin 0.4 mg/dL (0.2-1.0) Aspartate Amino Transferase (AST) 21 U/L (15-37) Alanine Aminotransferase (ALT) 30 U/L (14-59) Alkaline Phosphatase 67 U/L (46-116) Total Protein 7.1 g/dL (6.4-8.2) Albumin 3.3 g/dL (3.4-5.0) L Albumin/Globulin Ratio 0.9 (1.0-1.7) L Valproic Acid Level < 3 mcg/mL (50-100) L Valproic Acid Last Dose Date 05/22/20 Valproic Acid Last Dose Time 2100 Current Medications: Meds: Current Medications Medications (Trade) Dose Ordered Sig/Justin Route PRN Reason Start Time Stop Time Status Last Admin Dose Admin Clonidine HCl (Catapres Tts-3) 1 patch WEEKLY TD 05/23/20 11:40 05/23/20 11:40 I have reviewed the current psychotropics carefully including drug interactions. Risk benefit ratio favors no change other than as noted in my dictated progress note. Diagnosis: Problems: (1) Bipolar 1 disorder, manic, moderate (2) Chronic obstructive pulmonary disease (COPD) (3) Impulse control disorder, unspecified (4) Anxiety disorder, unspecified TYLER NEGRO MD May 24, 2020 07:42
[2020-05-24] MEDS: amLODIPine BESYLATE 5 MG TABLET PO SCH (07:44)
[2020-05-24] MEDS: VITAMIN B COMPLEX CAPSULE. PO SCH (07:44)
[2020-05-24] MEDS: CARVEDILOL 6.25 MG TABLET PO SCH ×2 (07:45→21:00)
[2020-05-24] MEDS: CHOLECALCIFEROL (VITAMIN D3) 1,000 UNIT TABLET PO SCH (07:45)
[2020-05-24] MEDS: FLUTICASONE/VILANTEROL 200/25 INHALER. INH SCH (07:45)
[2020-05-24 16:35] VITALS: BP 144/88
--- NOTE | 2020-05-24 18:17 | NUR ---
Pt has been up for meals. ADL in room. Less hyperverbal today. Has been compliant with meds and cares. Demanding different things when attempting to do EKG. Pt redirected by staff.
[2020-05-24] MEDS: ATORVASTATIN CALCIUM 20 MG TABLET PO SCH (21:00)
[2020-05-24] MEDS: DIVALPROEX ER 500 MG TAB.ER.24H PO SCH (21:00)
[2020-05-24] MEDS: MELATONIN 3 MG TABLET PO SCH (21:04)
[2020-05-24] MEDS: HYDROcodone/APAP 5/325MG 1 TAB TABLET PO PRN (21:04)
[2020-05-24] MEDS: LOSARTAN 50 MG TABLET. PO SCH (21:06)
[2020-05-24] MEDS: MONTELUKAST 10 MG TABLET. PO SCH (21:06)
[2020-05-24] MEDS: ZIPRASIDONE 60 MG CAPSULE. PO SCH (21:07)
--- NOTE | 2020-05-24 22:24 | PDOC ---
Exam Note: Mik Note: Please also refer to the separate dictated note~for this date of service dictated separately.~Patient seen individually. Discussed the patient with Nursing staff reviewed the chart.~Reviewed interim history and current functioning. Reviewed vital signs,~Labs/ Radiology~and current medications noted below. Continue current treatment with the changes noted in the dictated addendum note Assessment: Vital Signs/I&O: Vital Signs Date Time Temp Pulse Resp B/P (MAP) Pulse Ox O2 Delivery O2 Flow Rate FiO2 05/24/20 21:06 71 144/88 05/24/20 21:04 97 05/24/20 16:35 97.8 16 4.0 05/23/20 22:30 Nasal Cannula I & O 05/23/20 05/23/20 05/24/20 15:00 23:00 07:00 Intake Total 480 ml 100 ml 120 ml Balance 480 ml 100 ml 120 ml Current Medications: I have reviewed the current psychotropics carefully including drug interactions. Risk benefit ratio favors no change other than as noted in my dictated progress note. Diagnosis: Problems: (1) Bipolar 1 disorder, manic, moderate (2) Chronic obstructive pulmonary disease (COPD) (3) Impulse control disorder, unspecified (4) Anxiety disorder, unspecified TYLER NEGRO MD May 24, 2020 22:24
--- NOTE | 2020-05-25 00:01 | NUR ---
Nursing Note Pt is demanding, impatient and rude this pm. She states "Dr. Watt said YOU would come in this room, and explain each and every medication to me before I take them, and show me each pill and package, I also need a hydrocodone NOW, and I need to have another oxygen bottle YENY because I cannot make it to the bathroom with this current tubing. I need also ice water with more ice than water because I filled my glass from the bathroom because staff refused me and the water from the tap was HOT. I'm in my depressive phase of my bipolar disorder so I shouldn't take that much geodon, I know my own condition and how to treat it." I interrupted at points during the above run-on diatribe of demands, with the fact that her hydrocodone was PRN, and I didn't currently have it, that I was happy to tell her what she was taking, that we would assess the oxygen situation, and to stop firing off multiple demands at once. She refused depakote stating that it causes her to have dry mouth, that she only wanted 1/2 of her geodon, she state she won't take her lipitor or coreg because she takes name brand crestor only, and has no need for coreg since she is on a patch. Pt is hyperverbal, with flight of ideas, difficult to redirect, is unreasonable in her constant demands, also has an underlying religiosity feature to her statements. She interjects well God Bless your soul etc where a simple thank you would suffice. She later in the conversation, agrees to take the whole dose of geodon but not the others listed. On my way out the door, she continues to ask for oxygen tanks, stating "I expect SOMEONE to bring me a full bottle to this room YENY, God bless you it was a blessing to meet you !"
[2020-05-25 05:04] VITALS: BP 162/89
[2020-05-25] MEDS: amLODIPine BESYLATE 5 MG TABLET PO SCH (09:00)
[2020-05-25] MEDS: VITAMIN B COMPLEX CAPSULE. PO SCH (09:41)
[2020-05-25] MEDS: CARVEDILOL 6.25 MG TABLET PO SCH ×2 (09:42→20:11)
[2020-05-25] MEDS: CHOLECALCIFEROL (VITAMIN D3) 1,000 UNIT TABLET PO SCH (09:44)
[2020-05-25] MEDS: HYDROcodone/APAP 5/325MG 1 TAB TABLET PO PRN ×3 (09:45→20:10)
[2020-05-25] MEDS: FLUTICASONE/VILANTEROL 200/25 INHALER. INH SCH (09:47)
--- NOTE | 2020-05-25 10:01 | PDOC ---
Exam Note: Mik Note: This note is a late entry for 05/24/2020 covers elements not covered in my initial note. Subjective: The patient was seen individually in the evening of 05/24/2020. Per Charity WATT she slept 4-1/2 hours previous night. EKG, QTC is 418 milliseconds, unremarkable. Review of Systems: Impaired ambulation. No CV, , eye system symptoms on review. Mental Status Exam: Reasonably oriented. Speech coherent, rapid at times. Abstraction fair. Computation impaired. Language function intact. Attention span short. Mood and affect remains grandiose, manic. Laboratory Data: Reviewed. Impression: Bipolar disorder manic with psychotic features, anxiety disorder unspecified, impulse control disorder unspecified. Plan: Continue psychotropics from initial note. The patient was obsessed about her medications and dosages time of administration. I processed this with her and we will ask the nursing staff to give her a printout of her medications to help reduce her anxiety. Assessment: Vital Signs/I&O: Vital Signs Date Time Temp Pulse Resp B/P (MAP) Pulse Ox O2 Delivery O2 Flow Rate FiO2 05/25/20 09:45 99 05/25/20 09:42 73 162/89 05/25/20 05:04 97.3 20 05/24/20 16:35 4.0 05/23/20 22:30 Nasal Cannula I & O 05/24/20 05/24/20 05/25/20 15:00 23:00 07:00 Intake Total 480 ml 600 ml Balance 480 ml 600 ml Current Medications: I have reviewed the current psychotropics carefully including drug interactions. Risk benefit ratio favors no change other than as noted in my dictated progress note. Diagnosis: Problems: (1) Bipolar 1 disorder, manic, moderate (2) Chronic obstructive pulmonary disease (COPD) (3) Impulse control disorder, unspecified (4) Anxiety disorder, unspecified TYLER NEGRO MD May 25, 2020 10:01
--- NOTE | 2020-05-25 13:17 | NUR ---
Nursing note: Pt in her room this morning for meds and assessment. She demanded to know what meds were scheduled so she could decide what she wanted to take and what she would not take. Pt refused to take her amlodipine, "I'm wearing a patch to take care of that, you want to see? (Pt revealed the clonidine patch on her chest). I've always had high blood pressure, so does my mom." Education was provided on the importance of taking all of her BP medications, but pt continued to refuse her amlodipine. Pt stated "hydroodone with acetaminophen is the only thing I NEED right now. Make sure you bring me some milk to take with it too so it coats my stomach on the way down." Pt requested PRN lortab for pain in her lower back and neck rated 9/10 after practicing "[employer]" in her room. Pt has been withdrawn to her room for most of the day. Will continue to monitor.
[2020-05-25 16:48] VITALS: BP 179/83
[2020-05-25] MEDS: ZIPRASIDONE 60 MG CAPSULE. PO SCH (20:09)
[2020-05-25] MEDS: MONTELUKAST 10 MG TABLET. PO SCH (20:10)
[2020-05-25] MEDS: DIVALPROEX ER 500 MG TAB.ER.24H PO SCH (20:10)
[2020-05-25] MEDS: MELATONIN 3 MG TABLET PO SCH (20:10)
[2020-05-25] MEDS: ATORVASTATIN CALCIUM 20 MG TABLET PO SCH (20:10)
[2020-05-25] MEDS: LOSARTAN 50 MG TABLET. PO SCH (20:11)
--- NOTE | 2020-05-25 22:24 | PDOC ---
Exam Note: Mik Note: Please also refer to the separate dictated note~for this date of service dictated separately.~Patient seen individually. Discussed the patient with Nursing staff reviewed the chart.~Reviewed interim history and current functioning. Reviewed vital signs,~Labs/ Radiology~and current medications noted below. Continue current treatment with the changes noted in the dictated addendum note Assessment: Vital Signs/I&O: Vital Signs Date Time Temp Pulse Resp B/P (MAP) Pulse Ox O2 Delivery O2 Flow Rate FiO2 05/25/20 21:19 97 05/25/20 20:11 75 179/83 05/25/20 16:48 98.1 20 05/24/20 16:35 4.0 05/23/20 22:30 Nasal Cannula I & O 05/24/20 05/24/20 05/25/20 15:00 23:00 07:00 Intake Total 480 ml 600 ml Balance 480 ml 600 ml Current Medications: I have reviewed the current psychotropics carefully including drug interactions. Risk benefit ratio favors no change other than as noted in my dictated progress note. Diagnosis: Problems: (1) Bipolar 1 disorder, manic, moderate (2) Chronic obstructive pulmonary disease (COPD) (3) Impulse control disorder, unspecified (4) Anxiety disorder, unspecified TYLER NEGRO MD May 25, 2020 22:24
--- NOTE | 2020-05-25 22:48 | NUR ---
Nursing Note Pt still very manic, hyperverbal and demanding. I walk in her room and she begins with "Where is my medical record that I requested, I was told by Dr. Watt that you would be bringing me an oxygen replacement bottle, I need water with no ice, I was supposed to have a phone call that I was entitled to at 20:45 but did not get, I want [facility] to [facility] to get my crestor shipped over night so I don't have to take the lipitor that you are trying to provide, I cannot take all of that medicine and then take a shower it's impossible to do." I told her one topic at a time please, that her thoughts are racing, and I cannot keep up with her constant demands. I told her no negotiations on meds with the exception of lipitor, she takes them all or no hydrocodone, she initially states "fine then I don't want any of it!" but later is agreeable. Her conversations are littered with condescension and religiosity. As I am leaving her room she states "and God Bless you my dear, I want everyone that hates me or thinks I'm condescending to know that I do love them with all my heart, and wish them all of gods glory upon them!"
[2020-05-26 05:40] VITALS: BP 142/88
--- NOTE | 2020-05-26 07:31 | PDOC ---
Exam Note: Mik Note: This note is a late entry for 05/25/2020 covers elements not covered in my initial note. Subjective: The patient was seen individually in the evening of 05/25/2020. Per Sophia WATT she slept 5-1/4 hours previous night. She has been demanding, picking and choosing what meds she takes. I met with her at great length in her room trying to encourage compliance with treatment. She is somewhat dismissive at times. We will give her a printout of her medication list and answer her questions. Refusing meds at times, somewhat manipulative. Review of Systems: Impaired ambulation. No CV, , eye system symptoms on review. Mental Status Exam: Reasonably oriented. Speech coherent, rapid at times. Abstraction fair. Computation impaired. Language function intact. Attention span short. Mood and affect remains grandiose, manic. Laboratory Data: Reviewed. Impression: Bipolar disorder manic with psychotic features, anxiety disorder unspecified, impulse control disorder unspecified. Plan: We will change the Depakote to Depakene liquid to help with compliance. Continue rest unchanged. Assessment: Vital Signs/I&O: Vital Signs Date Time Temp Pulse Resp B/P (MAP) Pulse Ox O2 Delivery O2 Flow Rate FiO2 05/26/20 05:40 98.1 71 20 142/88 (106) 99 05/24/20 16:35 4.0 05/23/20 22:30 Nasal Cannula I & O 05/25/20 05/25/20 05/26/20 15:00 23:00 07:00 Intake Total 600 ml 240 ml 360 ml Balance 600 ml 240 ml 360 ml Current Medications: I have reviewed the current psychotropics carefully including drug interactions. Risk benefit ratio favors no change other than as noted in my dictated progress note. Diagnosis: Problems: (1) Bipolar 1 disorder, manic, moderate (2) Chronic obstructive pulmonary disease (COPD) (3) Impulse control disorder, unspecified (4) Anxiety disorder, unspecified TYLER NEGRO MD May 26, 2020 07:31
[2020-05-26] MEDS: VITAMIN B COMPLEX CAPSULE. PO SCH (08:29)
[2020-05-26] MEDS: CHOLECALCIFEROL (VITAMIN D3) 1,000 UNIT TABLET PO SCH (08:29)
[2020-05-26] MEDS: FLUTICASONE/VILANTEROL 200/25 INHALER. INH SCH (08:29)
[2020-05-26] MEDS: amLODIPine BESYLATE 5 MG TABLET PO SCH (08:30)
[2020-05-26] MEDS: CARVEDILOL 6.25 MG TABLET PO SCH ×2 (08:30→20:29)
[2020-05-26] MEDS: ALBUTEROL SULFATE 8GM INHALER. INH PRN ×2 (08:31→12:45)
[2020-05-26] MEDS: HYDROcodone/APAP 5/325MG 1 TAB TABLET PO PRN ×2 (08:35→20:28)
[2020-05-26] MEDS ORDERED: VALPROATE ACID 250 MG/5 ML ORAL SOLUTION PO SCH (09:00)
--- NOTE | 2020-05-26 15:16 | NUR ---
FINN returned call to Cary to go over pt behaviors and FINN explained that pt is still manic and not very consistent with her medication regime and the goals that have been set to make treatment successful. Cary reports that her mother does lie so they take a lot with a grain of salt but she just wants to make sure that pt does have a decrease in behaviors and stabilize her bre so that she can return to [facility]. Cary also questioned pt status as she believed that she is a DNR and that [facility] has a copy. FINN informed Cary that as it stands, pt is considered a full code until we have pt DNR. If she does not have a DNR we can work on actually making her one here and having the physician sign it. Treatment team is on ; FINN will be able to update Cary on an updated ELOS and game plan for treatment.
[2020-05-26 15:56] VITALS: BP 138/75
--- NOTE | 2020-05-26 18:29 | NUR ---
RN set off day with patient discussing boundaries. Pt was being picky about her clothing, patient was told that she needed to pick 1 outfit and that she would wear that outfit all day. Pt also told that she would not eat meals unless she went into dining room. Pt also told that she would not receive her pain pills unless she was compliant with her other medications. Pt has been calm, compliant and appropriate in behavior today. YASMIN.
[2020-05-26] MEDS: ZIPRASIDONE 60 MG CAPSULE. PO SCH (20:27)
[2020-05-26] MEDS: MELATONIN 3 MG TABLET PO SCH (20:27)
[2020-05-26] MEDS: LOSARTAN 50 MG TABLET. PO SCH (20:28)
[2020-05-26] MEDS: MONTELUKAST 10 MG TABLET. PO SCH (20:28)
[2020-05-26] MEDS ORDERED: DIVALPROEX 125 MG CAP.SPRINK PO ONE (21:00)
[2020-05-26] MEDS: ATORVASTATIN CALCIUM 20 MG TABLET PO SCH (21:00)
--- NOTE | 2020-05-26 22:15 | PDOC ---
Exam Note: Mik Note: Please also refer to the separate dictated note~for this date of service dictated separately.~Patient seen individually. Discussed the patient with Nursing staff reviewed the chart.~Reviewed interim history and current functioning. Reviewed vital signs,~Labs/ Radiology~and current medications noted below. Continue current treatment with the changes noted in the dictated addendum note Assessment: Vital Signs/I&O: Vital Signs Date Time Temp Pulse Resp B/P (MAP) Pulse Ox O2 Delivery O2 Flow Rate FiO2 05/26/20 20:29 69 138/75 05/26/20 20:28 94 05/26/20 15:56 98.0 20 Room Air 05/24/20 16:35 4.0 I & O 05/25/20 05/25/20 05/26/20 15:00 23:00 07:00 Intake Total 600 ml 240 ml 360 ml Balance 600 ml 240 ml 360 ml Current Medications: Meds: Current Medications Medications (Trade) Dose Ordered Sig/Justin Route PRN Reason Start Time Stop Time Status Last Admin Dose Admin Valproic Acid (Depakene) 250 mg BID PO 05/26/20 09:00 05/26/20 19:17 DC 05/26/20 08:29 Divalproex Sodium (Depakote Sprinkles) 250 mg 1X ONCE PO 05/26/20 21:00 05/26/20 21:01 DC 05/26/20 20:27 I have reviewed the current psychotropics carefully including drug interactions. Risk benefit ratio favors no change other than as noted in my dictated progress note. Diagnosis: Problems: (1) Bipolar 1 disorder, manic, moderate (2) Chronic obstructive pulmonary disease (COPD) (3) Impulse control disorder, unspecified (4) Anxiety disorder, unspecified TYLER NEGRO MD May 26, 2020 22:15
--- NOTE | 2020-05-26 23:29 | NUR ---
Nursing Note Pt takes all meds willingly this pm thoughts are not racing as previous 2 nights, seems to be more reasonable, less demanding, but still wants each and every pill identified. She claims she doesn't want to take depakote because it brings her down too far. She states "I don't want to come down, I like being me, I'm highly motivated with energy to get things done and thats how I want to stay" I told her that being manic is not the best state to be in , that it can decrease productivity because of the constant fluctuations in thoughts and actions. I told her it was like trying to juggle 10 balls, if you get hyper focus and perseverate on 1 ball then the other 9 fall on the floor. I told her that when you have manic episodes you may feel as though you are very productive and full of energy but in fact very little gets completed secondary to the flight of ideas, and distractibility factor. She felt better and showed understanding of the concepts. She then tells me that she appreciates me and that god blesses my kind soul. I told her thanks and get some rest.
[2020-05-27 05:27] VITALS: BP 157/79
--- NOTE | 2020-05-27 07:23 | PDOC ---
Exam Note: Mik Note: This note is a late entry for 05/26/2020 covers elements not covered in my initial note. Subjective: The patient was seen individually in the evening of 05/26/2020. Per Deandre WATT she slept 5 hours previous night. She has done better today, more compliant, less grandiose, not eating till she goes to the dining room. She is compliant with her medications. Review of Systems: Impaired ambulation. No CV, , eye system symptoms on re view. Mental Status Exam: Reasonably oriented. Speech coherent, rapid at times. Abstraction fair. Computation impaired. Language function intact. Attention span short. Mood and affect remains less grandiose, more compliant. Laboratory Data: Reviewed. Impression: Bipolar disorder manic with psychotic features, anxiety disorder unspecified, impulse control disorder unspecified. Plan: No change from prior note. Assessment: Vital Signs/I&O: Vital Signs Date Time Temp Pulse Resp B/P (MAP) Pulse Ox O2 Delivery O2 Flow Rate FiO2 05/27/20 05:27 97.6 67 20 157/79 (105) 90 Room Air 05/24/20 16:35 4.0 I & O 05/26/20 05/26/20 05/27/20 15:00 23:00 07:00 Intake Total 720 ml 840 ml Balance 720 ml 840 ml Current Medications: Meds: Current Medications Medications (Trade) Dose Ordered Sig/Justin Route PRN Reason Start Time Stop Time Status Last Admin Dose Admin Valproic Acid (Depakene) 250 mg BID PO 05/26/20 09:00 05/26/20 19:17 DC 05/26/20 08:29 Divalproex Sodium (Depakote Sprinkles) 250 mg 1X ONCE PO 05/26/20 21:00 05/26/20 21:01 DC 05/26/20 20:27 I have reviewed the current psychotropics carefully including drug interactions. Risk benefit ratio favors no change other than as noted in my dictated progress note. Diagnosis: Problems: (1) Bipolar 1 disorder, manic, moderate (2) Chronic obstructive pulmonary disease (COPD) (3) Impulse control disorder, unspecified (4) Anxiety disorder, unspecified TYLER NEGRO MD May 27, 2020 07:23
[2020-05-27] MEDS: FLUTICASONE/VILANTEROL 200/25 INHALER. INH SCH (08:25)
[2020-05-27] MEDS: CHOLECALCIFEROL (VITAMIN D3) 1,000 UNIT TABLET PO SCH (08:26)
[2020-05-27] MEDS: VITAMIN B COMPLEX CAPSULE. PO SCH (08:26)
[2020-05-27] MEDS: CARVEDILOL 6.25 MG TABLET PO SCH ×2 (08:30→20:09)
[2020-05-27] MEDS: amLODIPine BESYLATE 5 MG TABLET PO SCH (08:32)
[2020-05-27 08:33] VITALS: BP 179/74
[2020-05-27] MEDS: HYDROcodone/APAP 5/325MG 1 TAB TABLET PO PRN ×2 (08:44→20:13)
--- NOTE | 2020-05-27 11:53 | NUR ---
Patient started to refuse her BP medications at breakfast. Nurse told patient that unless she took both BP pills she could not get a Lortab. Patient immediately took all medications willingly. Patient has been less attentions seeking but still insists on addressing each staff member by their first name. She appears to have them all memorized. She was able to keep her conversation on track better that on previous days. PRN Lortab provided for 10/10 pain per order and per patients request. When asked the patient stated that the pain is "all over". Nurse and other staff observed patient sitting at table talking with peers, no changes observed due to her 10/10 pain. Patient also reported that she has a cough and yellow/green phlegm. Nurse has not heard patient cough nor observed any phlegm. Patient stated that she "probably has pneumonia" even though her lungs were clear to auscultation but diminished. Patient saw peer in next room was getting a chest xray and stated again that she needed an xray for her pneumonia.
[2020-05-27 16:54] VITALS: BP 144/75
[2020-05-27] MEDS: LOSARTAN 50 MG TABLET. PO SCH (20:09)
[2020-05-27] MEDS: MELATONIN 3 MG TABLET PO SCH (20:10)
[2020-05-27] MEDS: DIVALPROEX ER 500 MG TAB.ER.24H PO SCH (20:10)
[2020-05-27] MEDS: ZIPRASIDONE 60 MG CAPSULE. PO SCH (20:11)
[2020-05-27] MEDS: MONTELUKAST 10 MG TABLET. PO SCH (20:11)
[2020-05-27] MEDS: ATORVASTATIN CALCIUM 20 MG TABLET PO SCH (20:17)
--- NOTE | 2020-05-27 22:00 | NUR ---
PT seen in room. PT sitting in bed at time of assessment on 2L of O2. PT wanted all medications explained. This nurse explained reasoning for all medications. PT refused to take Lipitor and stated she had not been taking it. Reviewed chart and PT was correct. Med not administered. PT cooperative with assessment. PT requesting PRN pain medication. Asked PT to take all other meds first. PT compliant.
--- NOTE | 2020-05-27 22:21 | PDOC ---
Exam Note: Mik Note: Please also refer to the separate dictated note~for this date of service dictated separately.~Patient seen individually. Discussed the patient with Nursing staff reviewed the chart.~Reviewed interim history and current functioning. Reviewed vital signs,~Labs/ Radiology~and current medications noted below. Continue current treatment with the changes noted in the dictated addendum note Assessment: Vital Signs/I&O: Vital Signs Date Time Temp Pulse Resp B/P (MAP) Pulse Ox O2 Delivery O2 Flow Rate FiO2 05/27/20 21:14 16 Nasal Cannula 2.0 05/27/20 20:09 59 144/75 05/27/20 16:54 98.5 95 I & O 05/26/20 05/26/20 05/27/20 15:00 23:00 07:00 Intake Total 720 ml 840 ml Balance 720 ml 840 ml Current Medications: Meds: Current Medications Medications (Trade) Dose Ordered Sig/Justin Route PRN Reason Start Time Stop Time Status Last Admin Dose Admin Divalproex Sodium (Depakote Er) 500 mg QHS PO 05/27/20 21:00 05/27/20 20:10 I have reviewed the current psychotropics carefully including drug interactions. Risk benefit ratio favors no change other than as noted in my dictated progress note. Diagnosis: Problems: (1) Bipolar 1 disorder, manic, moderate (2) Chronic obstructive pulmonary disease (COPD) (3) Impulse control disorder, unspecified (4) Anxiety disorder, unspecified TYLER NEGRO MD May 27, 2020 22:21
[2020-05-28] MEDS: HYDROcodone/APAP 5/325MG 1 TAB TABLET PO PRN ×5 (00:26→20:05)
[2020-05-28 05:43] VITALS: BP 141/92
--- NOTE | 2020-05-28 07:31 | PDOC ---
Exam Note: Mik Note: This note is a late entry for 05/27/2020 covers elements not covered in my initial note. Subjective: The patient was seen individually in the evening of 05/27/2020. Per Alana WATT she slept 3-1/2 hours previous night. She has been taking her medications. I met with her at length in her room. She is very persistent about her Lortab and nursing staff used this to help compliance to the rest of her treatment, seems to be working for now. Review of Systems: Impaired ambulation. No CV, , eye system symptoms on review. Mental Status Exam: Reasonably oriented. She is very pleasant, verbal, interactive as I met with her saluting me. Speech coherent, rapid at times. Abstraction fair. Computation impaired. Language function intact. Attention span short. Mood and affect remains more compliant. Laboratory Data: Reviewed. Impression: Bipolar disorder manic with psychotic features, anxiety disorder unspecified, impulse control disorder unspecified. Plan: No change from prior note. We will check labs and valproic acid level on 05/29. Adjust Depakote thereafter to reach therapeutic level for her bipolar disorder. Assessment: Vital Signs/I&O: Vital Signs Date Time Temp Pulse Resp B/P (MAP) Pulse Ox O2 Delivery O2 Flow Rate FiO2 05/28/20 05:43 98.2 56 18 141/92 (108) 98 Nasal Cannula 2.0 I & O 05/27/20 05/27/20 05/28/20 15:00 23:00 07:00 Intake Total 720 ml 240 ml Balance 720 ml 240 ml Current Medications: Meds: Current Medications Medications (Trade) Dose Ordered Sig/Justin Route PRN Reason Start Time Stop Time Status Last Admin Dose Admin Divalproex Sodium (Depakote Er) 500 mg QHS PO 05/27/20 21:00 05/27/20 20:10 I have reviewed the current psychotropics carefully including drug interactions. Risk benefit ratio favors no change other than as noted in my dictated progress note. Diagnosis: Problems: (1) Bipolar 1 disorder, manic, moderate (2) Chronic obstructive pulmonary disease (COPD) (3) Impulse control disorder, unspecified (4) Anxiety disorder, unspecified TYLER NEGRO MD May 28, 2020 07:31
[2020-05-28] MEDS: FLUTICASONE/VILANTEROL 200/25 INHALER. INH SCH (09:16)
[2020-05-28] MEDS: amLODIPine BESYLATE 5 MG TABLET PO SCH (09:20)
[2020-05-28] MEDS: CARVEDILOL 6.25 MG TABLET PO SCH ×2 (09:22→20:02)
[2020-05-28] MEDS: CHOLECALCIFEROL (VITAMIN D3) 1,000 UNIT TABLET PO SCH (09:22)
[2020-05-28] MEDS: VITAMIN B COMPLEX CAPSULE. PO SCH (09:22)
--- NOTE | 2020-05-28 09:27 | NUR ---
Patient reports pain 8/10 in back, neck and legs. Requested pain medication. PRN lortab provided per order for pain. Will continue to monitor.
--- NOTE | 2020-05-28 10:47 | NUR ---
WEEKLY ACTIVITY THERAPY NOTE Date of Admission: 05/18/20 Date of AT Assessment: 05/21/2020 Precipitating behaviors that initiated intake and admission: anxiety, agitation, manic, defiant, guarded, paranoid, refusing medications, not sleeping, psychogenic polydipsia Goal aimed: to increase socialization and relaxation Initial Goal: Pt. will participate in at least three Activity Therapy groups per week. Weekly progress towards goal: 0/3 Group participation level: zero Weekly highlights: waved to CRYSTAL LAPPER when sitting in the hallway after lunch on day Behaviors observed: withdrawn to room, no interest in groups this week Plan: no change to goal at this time Beneficial adaptations:
--- NOTE | 2020-05-28 13:58 | NUR ---
Patient reports pain in lower back and neck. she is rating it 10/10. PRN Lortab provided per order for pain.
[2020-05-28 15:42] VITALS: BP 158/79
[2020-05-28] MEDS: MONTELUKAST 10 MG TABLET. PO SCH (20:03)
[2020-05-28] MEDS: MELATONIN 3 MG TABLET PO SCH (20:03)
[2020-05-28] MEDS: DIVALPROEX ER 500 MG TAB.ER.24H PO SCH (20:03)
[2020-05-28] MEDS: LOSARTAN 50 MG TABLET. PO SCH (20:04)
[2020-05-28] MEDS: ATORVASTATIN CALCIUM 20 MG TABLET PO SCH (20:04)
[2020-05-28] MEDS: ZIPRASIDONE 60 MG CAPSULE. PO SCH (20:04)
--- NOTE | 2020-05-28 22:10 | PDOC ---
Exam Note: Mik Note: Please also refer to the separate dictated note~for this date of service dictated separately.~Patient seen individually. Discussed the patient with Nursing staff reviewed the chart.~Reviewed interim history and current functioning. Reviewed vital signs,~Labs/ Radiology~and current medications noted below. Continue current treatment with the changes noted in the dictated addendum note Assessment: Vital Signs/I&O: Vital Signs Date Time Temp Pulse Resp B/P (MAP) Pulse Ox O2 Delivery O2 Flow Rate FiO2 05/28/20 20:05 Nasal Cannula 2.0 05/28/20 20:04 67 158/79 05/28/20 15:42 98.9 18 95 I & O 05/27/20 05/27/20 05/28/20 15:00 23:00 07:00 Intake Total 720 ml 240 ml Balance 720 ml 240 ml Current Medications: I have reviewed the current psychotropics carefully including drug interactions. Risk benefit ratio favors no change other than as noted in my dictated progress note. Diagnosis: Problems: (1) Bipolar 1 disorder, manic, moderate (2) Chronic obstructive pulmonary disease (COPD) (3) Impulse control disorder, unspecified (4) Anxiety disorder, unspecified TYLER NEGRO MD May 28, 2020 22:10
--- NOTE | 2020-05-29 02:13 | NUR ---
Last evening pt was pleasant and cooperative. She was less manic than prior shifts. She took her meds without issue. PRN pain med given HS and she has been sleeping well.
[2020-05-29 05:30] VITALS: BP 157/80
[2020-05-29 07:22] LABS: BASO % 1 % (0-3); EOS # 0.1 x10^3/uL (0.0-0.7); EOS % 2 % (0-3); HEMATOCRIT 37.4 % (36.0-47.0); HEMOGLOBIN 12.4 g/dL (12.0-15.5); LYMPH # 0.7 x10^3/uL (1.0-4.8); LYMPH % 10 % (24-48); MEAN CORPUSCULAR HEMOGLOBIN 29 pg (25-35); MEAN CORPUSCULAR HGB CONC 33 g/dL (31-37); MEAN CORPUSCULAR VOLUME 88 fL (79-100); MONO # 0.6 x10^3/uL (0.0-1.1); MONO % 9 % (0-9); NEUT # 5.5 x10^3uL (1.8-7.7); NEUT % 79 % (31-73); PLATELET COUNT 395 x10^3/uL (140-400); RED BLOOD COUNT 4.23 x10^6/uL (3.50-5.40); RED CELL DISTRIBUTION WIDTH 13.7 % (11.5-14.5); WHITE BLOOD COUNT 6.9 x10^3/uL (4.0-11.0)
[2020-05-29 07:29] LABS: ALBUMIN 3.1 g/dL (3.4-5.0); ALBUMIN/GLOBULIN RATIO 0.8 (1.0-1.7); ALK PHOS 67 U/L (46-116); ALT (SGPT) 24 U/L (14-59); ANION GAP 0 (6-14); AST (SGOT) 16 U/L (15-37); BLOOD UREA NITROGEN 7 mg/dL (7-20); BUN/CREATININE RATIO 9 (6-20); CALCIUM 9.2 mg/dL (8.5-10.1); CARBON DIOXIDE 37 mmol/L (21-32); CHLORIDE 100 mmol/L (98-107); CREATININE 0.8 mg/dL (0.6-1.0); GFR 70.9; GLUCOSE 118 mg/dL (70-99); POTASSIUM 4.3 mmol/L (3.5-5.1); SODIUM 137 mmol/L (136-145); TOTAL BILIRUBIN 0.3 mg/dL (0.2-1.0); TOTAL PROTEIN 6.8 g/dL (6.4-8.2)
[2020-05-29 07:37] LABS: VAL ACID 37 mcg/mL (50-100)
[2020-05-29] MEDS: ALBUTEROL SULFATE 8GM INHALER. INH PRN (09:18)
[2020-05-29] MEDS: FLUTICASONE/VILANTEROL 200/25 INHALER. INH SCH (09:18)
[2020-05-29] MEDS: amLODIPine BESYLATE 5 MG TABLET PO SCH (09:19)
[2020-05-29] MEDS: VITAMIN B COMPLEX CAPSULE. PO SCH (09:19)
[2020-05-29] MEDS: CHOLECALCIFEROL (VITAMIN D3) 1,000 UNIT TABLET PO SCH (09:19)
[2020-05-29] MEDS: CARVEDILOL 6.25 MG TABLET PO SCH ×2 (09:21→21:02)
[2020-05-29] MEDS: HYDROcodone/APAP 5/325MG 1 TAB TABLET PO PRN ×2 (09:23→21:03)
[2020-05-29 16:04] VITALS: BP 148/61
--- NOTE | 2020-05-29 18:33 | NUR ---
Patient compliant with medications today. Refused to come out for breakfast, refused to come out for dinner because she was told she needed to walk. Pt wanting staff to push her in wheelchair and told she had to walk to dining room to eat. Pt chose to stay in room. Pt less sarcastic and condescending today. WCTM.
[2020-05-29] MEDS: ATORVASTATIN CALCIUM 20 MG TABLET PO SCH (21:01)
[2020-05-29] MEDS: ZIPRASIDONE 60 MG CAPSULE. PO SCH (21:01)
[2020-05-29] MEDS: MONTELUKAST 10 MG TABLET. PO SCH (21:01)
[2020-05-29] MEDS: MELATONIN 3 MG TABLET PO SCH (21:01)
[2020-05-29] MEDS: LOSARTAN 50 MG TABLET. PO SCH (21:02)
[2020-05-29] MEDS: DIVALPROEX ER 500 MG TAB.ER.24H PO SCH (21:02)
--- NOTE | 2020-05-29 22:21 | PDOC ---
Exam Note: Mik Note: Please also refer to the separate dictated note~for this date of service dictated separately.~Patient seen individually. Discussed the patient with Nursing staff reviewed the chart.~Reviewed interim history and current functioning. Reviewed vital signs,~Labs/ Radiology~and current medications noted below. Continue current treatment with the changes noted in the dictated addendum note Assessment: Vital Signs/I&O: Vital Signs Date Time Temp Pulse Resp B/P (MAP) Pulse Ox O2 Delivery O2 Flow Rate FiO2 05/29/20 21:03 Nasal Cannula 2.0 05/29/20 21:02 60 148/61 05/29/20 16:04 97.8 20 96 I & O 05/28/20 05/28/20 05/29/20 15:00 23:00 07:00 Intake Total 720 ml 480 ml Balance 720 ml 480 ml Labs: Laboratory Tests Test 05/29/20 06:58 White Blood Count 6.9 x10^3/uL (4.0-11.0) Red Blood Count 4.23 x10^6/uL (3.50-5.40) Hemoglobin 12.4 g/dL (12.0-15.5) Hematocrit 37.4 % (36.0-47.0) Mean Corpuscular Volume 88 fL (79-100) Mean Corpuscular Hemoglobin 29 pg (25-35) Mean Corpuscular Hemoglobin Concent 33 g/dL (31-37) Red Cell Distribution Width 13.7 % (11.5-14.5) Platelet Count 395 x10^3/uL (140-400) Neutrophils (%) (Auto) 79 % (31-73) H Lymphocytes (%) (Auto) 10 % (24-48) L Monocytes (%) (Auto) 9 % (0-9) Eosinophils (%) (Auto) 2 % (0-3) Basophils (%) (Auto) 1 % (0-3) Neutrophils # (Auto) 5.5 x10^3uL (1.8-7.7) Lymphocytes # (Auto) 0.7 x10^3/uL (1.0-4.8) L Monocytes # (Auto) 0.6 x10^3/uL (0.0-1.1) Eosinophils # (Auto) 0.1 x10^3/uL (0.0-0.7) Basophils # (Auto) 0.0 x10^3/uL (0.0-0.2) Sodium Level 137 mmol/L (136-145) Potassium Level 4.3 mmol/L (3.5-5.1) Chloride Level 100 mmol/L (98-107) Carbon Dioxide Level 37 mmol/L (21-32) H Anion Gap 0 (6-14) L Blood Urea Nitrogen 7 mg/dL (7-20) Creatinine 0.8 mg/dL (0.6-1.0) Estimated GFR (Cockcroft-Gault) 70.9 BUN/Creatinine Ratio 9 (6-20) Glucose Level 118 mg/dL (70-99) H Calcium Level 9.2 mg/dL (8.5-10.1) Total Bilirubin 0.3 mg/dL (0.2-1.0) Aspartate Amino Transferase (AST) 16 U/L (15-37) Alanine Aminotransferase (ALT) 24 U/L (14-59) Alkaline Phosphatase 67 U/L (46-116) Total Protein 6.8 g/dL (6.4-8.2) Albumin 3.1 g/dL (3.4-5.0) L Albumin/Globulin Ratio 0.8 (1.0-1.7) L Valproic Acid Level 37 mcg/mL (50-100) L Valproic Acid Last Dose Date 05/28/20 Valproic Acid Last Dose Time 2100 Current Medications: I have reviewed the current psychotropics carefully including drug interactions. Risk benefit ratio favors no change other than as noted in my dictated progress note. Diagnosis: Problems: (1) Bipolar 1 disorder, manic, moderate (2) Chronic obstructive pulmonary disease (COPD) (3) Impulse control disorder, unspecified (4) Anxiety disorder, unspecified TYLER NEGRO MD May 29, 2020 22:21
[2020-05-30 05:46] VITALS: BP 131/73
--- NOTE | 2020-05-30 07:58 | PDOC ---
Exam Note: Mik Note: This note is a late entry for 05/28/2020 covers elements not covered in my initial note. Subjective: The patient was seen individually in the morning of 05/28/2020 with treatment team meeting with Tacho Meeks RN (social service staff), [facility] staff. Appetite is 50%. She slept 5 hours previous night. She spends much time in her room which is where I met with her in the evening. Also discussed with Alana WATT in the evening. She has been polite, not aggressive and stating things like bless you to the nursing staff. She slept 3-1/2 hours previous night. She refused BP meds but then she was told she could not get her Lortab unless she took the rest of her meds and she took them later asking for Lortab exactly every 4 hours. Valproic acid level is to be checked on 05/29. Review of Systems: Impaired ambulation. Shortness of breath on O2 supplements. No CV, , eye, ENT system symptoms on review. Mental Status Exam: Reasonably oriented. She is very pleasant, verbal as I met with her. Speech coherent, rapid at times. Abstraction fair. Computation impaired. Language function intact. Attention span short. Mood and affect not aggressive, polite. Laboratory Data: Reviewed. Impression: Bipolar disorder manic with psychotic features, anxiety disorder unspecified, impulse control disorder unspecified. Plan: No change from prior note. Adjust Depakote post next set of labs and valproic acid level on 05/29. Assessment: Vital Signs/I&O: Vital Signs Date Time Temp Pulse Resp B/P (MAP) Pulse Ox O2 Delivery O2 Flow Rate FiO2 05/30/20 05:46 98.1 53 20 131/73 (92) 100 Nasal Cannula 2.0 I & O 05/29/20 05/29/20 05/30/20 15:00 23:00 07:00 Intake Total 480 ml 240 ml Balance 480 ml 240 ml Current Medications: I have reviewed the current psychotropics carefully including drug interactions. Risk benefit ratio favors no change other than as noted in my dictated progress note. Diagnosis: Problems: (1) Bipolar 1 disorder, manic, moderate (2) Chronic obstructive pulmonary disease (COPD) (3) Impulse control disorder, unspecified (4) Anxiety disorder, unspecified TYLER NEGRO MD May 30, 2020 07:58
--- NOTE | 2020-05-30 08:16 | PDOC ---
Exam Note: Mik Note: This note is a late entry for 05/29/2020 covers elements not covered in my initial note. Subjective: The patient was seen individually in the evening of 05/29/2020. Per Deandre WATT she slept 4 hours previous night. I met with her in her room in the evening. She continues to salute me telling me how salutes are done for the different branches of the armed services, less grandiose, despite this. Review of Systems: Impaired ambulation. No CV, , eye system symptoms on review. Mental Status Exam: Reasonably oriented. She is very pleasant, verbal, interactive as I met with her saluting me. Speech coherent, rapid at times. Abstraction fair. Computation impaired. Language function intact. Attention span short. Mood and affect remains more compliant. Laboratory Data: Reviewed. Impression: Bipolar disorder manic with psychotic features, anxiety disorder unspecified, impulse control disorder unspecified. Plan: No change from prior note. Valproic acid level is awaited. Adjust Depakote thereafter. Continue Geodon 120 mg h.s., Ativan, Zyprexa p.r.n., m elatonin 10 mg h.s. Assessment: Vital Signs/I&O: Vital Signs Date Time Temp Pulse Resp B/P (MAP) Pulse Ox O2 Delivery O2 Flow Rate FiO2 05/30/20 05:46 98.1 53 20 131/73 (92) 100 Nasal Cannula 2.0 I & O 05/29/20 05/29/20 05/30/20 14:59 22:59 06:59 Intake Total 480 ml 240 ml Balance 480 ml 240 ml Current Medications: I have reviewed the current psychotropics carefully including drug interactions. Risk benefit ratio favors no change other than as noted in my dictated progress note. Diagnosis: Problems: (1) Bipolar 1 disorder, manic, moderate (2) Chronic obstructive pulmonary disease (COPD) (3) Impulse control disorder, unspecified (4) Anxiety disorder, unspecified TYLER NEGRO MD May 30, 2020 08:16
[2020-05-30] MEDS: VITAMIN B COMPLEX CAPSULE. PO SCH (08:17)
[2020-05-30] MEDS: CARVEDILOL 6.25 MG TABLET PO SCH ×2 (08:17→21:18)
[2020-05-30] MEDS: CHOLECALCIFEROL (VITAMIN D3) 1,000 UNIT TABLET PO SCH (08:18)
[2020-05-30] MEDS: cloNIDine TTS-3 1 PATCH PATCH TD SCH (08:18)
[2020-05-30] MEDS: amLODIPine BESYLATE 5 MG TABLET PO SCH (08:18)
[2020-05-30] MEDS: FLUTICASONE/VILANTEROL 200/25 INHALER. INH SCH (09:00)
[2020-05-30 16:58] VITALS: BP 170/76
--- NOTE | 2020-05-30 17:40 | NUR ---
Pt out for meals. Has been compliant with meds and cares. Out to groups. Withdrawn to room rest of time.
[2020-05-30] MEDS: MELATONIN 3 MG TABLET PO SCH (21:14)
[2020-05-30] MEDS: DIVALPROEX ER 250 MG TAB.ER.24H. PO SCH (21:17)
[2020-05-30] MEDS: DIVALPROEX ER 500 MG TAB.ER.24H PO SCH (21:17)
[2020-05-30] MEDS: LOSARTAN 50 MG TABLET. PO SCH (21:17)
[2020-05-30] MEDS: MONTELUKAST 10 MG TABLET. PO SCH (21:18)
[2020-05-30] MEDS: ATORVASTATIN CALCIUM 20 MG TABLET PO SCH (21:18)
[2020-05-30] MEDS: ZIPRASIDONE 60 MG CAPSULE. PO SCH (21:21)
[2020-05-30] MEDS: ALBUTEROL SULFATE 8GM INHALER. INH PRN (21:27)
[2020-05-30] MEDS: HYDROcodone/APAP 5/325MG 1 TAB TABLET PO PRN (21:27)
--- NOTE | 2020-05-30 22:35 | PDOC ---
Exam Note: Mik Note: Please also refer to the separate dictated note~for this date of service dictated separately.~Patient seen individually. Discussed the patient with Nursing staff reviewed the chart.~Reviewed interim history and current functioning. Reviewed vital signs,~Labs/ Radiology~and current medications noted below. Continue current treatment with the changes noted in the dictated addendum note Assessment: Vital Signs/I&O: Vital Signs Date Time Temp Pulse Resp B/P (MAP) Pulse Ox O2 Delivery O2 Flow Rate FiO2 05/30/20 21:27 98 05/30/20 21:18 76 170/76 05/30/20 16:58 98.1 20 Nasal Cannula 2.0 I & O 05/29/20 05/29/20 05/30/20 15:00 23:00 07:00 Intake Total 480 ml 240 ml Balance 480 ml 240 ml Current Medications: Meds: Current Medications Medications (Trade) Dose Ordered Sig/Justin Route PRN Reason Start Time Stop Time Status Last Admin Dose Admin Divalproex Sodium (Depakote Er) 500 mg QHS PO 05/30/20 21:00 05/30/20 21:17 Divalproex Sodium (Depakote Er) 250 mg QHS PO 05/30/20 21:00 05/30/20 21:17 I have reviewed the current psychotropics carefully including drug interactions. Risk benefit ratio favors no change other than as noted in my dictated progress note. Diagnosis: Problems: (1) Bipolar 1 disorder, manic, moderate (2) Chronic obstructive pulmonary disease (COPD) (3) Impulse control disorder, unspecified (4) Anxiety disorder, unspecified TYLER NEGRO MD May 30, 2020 22:35
--- NOTE | 2020-05-30 23:56 | NUR ---
Pt withdrawn to her room all evening. Pt argumentative, attention seeking and irritable. Pt upset with medication change from Dr. Watt and attempted to pick and choose which medications she would and wouldn't take this evening. Pt informed that if she was not going to take all of her scheduled medications then she would not be receiving any PRN pain medication. Pt sarcastic and demanding with this RN but eventually compliant with all HS medications.
[2020-05-31 05:04] VITALS: BP 165/83
--- NOTE | 2020-05-31 07:44 | PDOC ---
Exam Note: Mik Note: This note is a late entry for 05/30/2020 covers elements not covered in my initial note. Subjective: The patient was seen individually in the evening of 05/30/2020. Per Jeanna WATT she slept 4 hours previous night. The patient is compliant with her medications. She wants to be pushed in her wheelchair rather than doing it herself. Review of Systems: She complains of shortness of breath on O2 supplements. Impaired ambulation. No CV, , eye system symptoms on review. I met with her at some length in her room. She is a past smoker as well. Mental Status Exam: Reasonably oriented. She is very pleasant, verbal, interactive as I met with her saluting me. Speech coherent, rapid at times. Abstraction fair. Computation impaired. Language function intact. Attention span short. Mood and affect remains more compliant. Laboratory Data: Reviewed. Impression: Bipolar disorder manic with psychotic features, anxiety disorder unspecified, impulse control disorder unspecified. Plan: Continue current psychotropics. The patient states she feels somewhat depressed, wants her Geodon reduced. We will watch another day and decide but increase the Depakote ER to 750 mg h.s. Valproic acid level is 37 on Depakote ER 500 mg h.s. We will increase to 50 mg h.s. Check CBC, CMP, valproic acid level in 3 days. Assessment: Vital Signs/I&O: Vital Signs Date Time Temp Pulse Resp B/P (MAP) Pulse Ox O2 Delivery O2 Flow Rate FiO2 05/31/20 05:04 97.8 62 20 165/83 (110) 98 2.0 05/30/20 16:58 Nasal Cannula l I & O 05/30/20 05/30/20 05/31/20 15:00 23:00 07:00 Intake Total 780 ml 360 ml Balance 780 ml 360 ml Current Medications: Meds: Current Medications Medications (Trade) Dose Ordered Sig/Justin Route PRN Reason Start Time Stop Time Status Last Admin Dose Admin Divalproex Sodium (Depakote Er) 500 mg QHS PO 05/30/20 21:00 05/30/20 21:17 Divalproex Sodium (Depakote Er) 250 mg QHS PO 05/30/20 21:00 05/30/20 21:17 I have reviewed the current psychotropics carefully including drug interactions. Risk benefit ratio favors no change other than as noted in my dictated progress note. Diagnosis: Problems: (1) Bipolar 1 disorder, manic, moderate (2) Chronic obstructive pulmonary disease (COPD) (3) Impulse control disorder, unspecified (4) Anxiety disorder, unspecified TYLER NEGRO MD May 31, 2020 07:44
[2020-05-31] MEDS: VITAMIN B COMPLEX CAPSULE. PO SCH (08:29)
[2020-05-31] MEDS: CHOLECALCIFEROL (VITAMIN D3) 1,000 UNIT TABLET PO SCH (08:30)
[2020-05-31] MEDS: amLODIPine BESYLATE 5 MG TABLET PO SCH (08:30)
[2020-05-31] MEDS: CARVEDILOL 6.25 MG TABLET PO SCH ×2 (08:30→20:45)
[2020-05-31] MEDS: FLUTICASONE/VILANTEROL 200/25 INHALER. INH SCH (08:36)
[2020-05-31] MEDS: ALBUTEROL SULFATE 8GM INHALER. INH PRN ×3 (08:39→20:46)
[2020-05-31 15:42] VITALS: BP 150/78
[2020-05-31] MEDS: HYDROcodone/APAP 5/325MG 1 TAB TABLET PO PRN ×2 (15:43→20:46)
[2020-05-31] MEDS: SALIVA STIMULANT AGENT 44ML SPRAY BOTTLE. PO PRN ×2 (16:18→20:46)
[2020-05-31] MEDS: LOSARTAN 50 MG TABLET. PO SCH (20:43)
[2020-05-31] MEDS: MELATONIN 3 MG TABLET PO SCH (20:43)
[2020-05-31] MEDS: DIVALPROEX ER 500 MG TAB.ER.24H PO SCH (20:43)
[2020-05-31] MEDS: DIVALPROEX ER 250 MG TAB.ER.24H. PO SCH (20:44)
[2020-05-31] MEDS: ATORVASTATIN CALCIUM 20 MG TABLET PO SCH (20:45)
[2020-05-31] MEDS: ZIPRASIDONE 80 MG CAPSULE. PO SCH (20:45)
[2020-05-31] MEDS: MONTELUKAST 10 MG TABLET. PO SCH (20:45)
--- NOTE | 2020-05-31 22:09 | PDOC ---
Exam Note: Mik Note: Please also refer to the separate dictated note~for this date of service dictated separately.~Patient seen individually. Discussed the patient with Nursing staff reviewed the chart.~Reviewed interim history and current functioning. Reviewed vital signs,~Labs/ Radiology~and current medications noted below. Continue current treatment with the changes noted in the dictated addendum note Assessment: Vital Signs/I&O: Vital Signs Date Time Temp Pulse Resp B/P (MAP) Pulse Ox O2 Delivery O2 Flow Rate FiO2 05/31/20 20:45 81 150/78 05/31/20 16:44 20 05/31/20 15:42 98.7 96 05/31/20 05:04 2.0 05/30/20 16:58 Nasal Cannula I & O 05/30/20 05/30/20 05/31/20 15:00 23:00 07:00 Intake Total 780 ml 360 ml Balance 780 ml 360 ml Current Medications: Meds: Current Medications Medications (Trade) Dose Ordered Sig/Justin Route PRN Reason Start Time Stop Time Status Last Admin Dose Admin Saliva Substitute (Biotene Moisturizing Mouth) 2 spray PRN Q15MIN PRN PO DRY MOUTH 05/31/20 16:15 05/31/20 20:46 Ziprasidone (Geodon) 80 mg QHS PO 05/31/20 21:00 05/31/20 20:45 I have reviewed the current psychotropics carefully including drug interactions. Risk benefit ratio favors no change other than as noted in my dictated progress note. Diagnosis: Problems: (1) Bipolar 1 disorder, manic, moderate (2) Chronic obstructive pulmonary disease (COPD) (3) Impulse control disorder, unspecified (4) Anxiety disorder, unspecified TYLER NEGRO MD May 31, 2020 22:09
--- NOTE | 2020-05-31 23:45 | NUR ---
Patient is in her room on assumption of care. She is in pleasant spirits. Calm, cooperative and compliant with assessments and medications taken whole. She did ask to have each medication shown to her and explained. She requested to have PRN Biotene spray, Ventolin inhaler, and Lortab for 10/10 back and side pain, which she received along with her HS medications. No agitation. No further complaints of pain or discomfort. Denies SI. Patient appears to be sleeping comfortably at present time. Will continue to monitor.
[2020-06-01 06:24] VITALS: BP 134/54
--- NOTE | 2020-06-01 07:54 | PDOC ---
Exam Note: Mik Note: This note is a late entry for 05/31/2020 covers elements not covered in my initial note. Subjective: The patient was seen individually in the evening of 05/31/2020. Per Jeanna RN she slept 5-1/4 hours previous night. In the evening on rounds with Poornima WATT. She tries to negotiate what meds she takes or not and I addressed this. She is compliant with medications, complains of mouth being dry. We may consider Biotin, defer to Dr. Doran. Review of Systems: She complains of shortness of breath. Impaired ambulation. No CV, , eye system symptoms on review. Mental Status Exam: Reasonably oriented. Speech coherent. Abstraction fair. Computation impaired. Language function intact. Attention span short. Mood and affect remains compliant. Laboratory Data: Reviewed. Impression: Bipolar disorder manic with psychotic features, anxiety disorder unspecified, impulse control disorder unspecified. Plan: No change from initial note. Assessment: Vital Signs/I&O: Vital Signs Date Time Temp Pulse Resp B/P (MAP) Pulse Ox O2 Delivery O2 Flow Rate FiO2 06/01/20 06:24 98.4 60 18 134/54 (80) 98 Nasal Cannula 2.0 I & O 05/31/20 05/31/20 06/01/20 15:00 23:00 07:00 Intake Total 840 ml 360 ml Balance 840 ml 360 ml Current Medications: Meds: Current Medications Medications (Trade) Dose Ordered Sig/Justin Route PRN Reason Start Time Stop Time Status Last Admin Dose Admin Saliva Substitute (Biotene Moisturizing Mouth) 2 spray PRN Q15MIN PRN PO DRY MOUTH 05/31/20 16:15 05/31/20 20:46 Ziprasidone (Geodon) 80 mg QHS PO 05/31/20 21:00 05/31/20 20:45 I have reviewed the current psychotropics carefully including drug interactions. Risk benefit ratio favors no change other than as noted in my dictated progress note. Diagnosis: Problems: (1) Bipolar 1 disorder, manic, moderate (2) Impulse control disorder, unspecified (3) Anxiety disorder, unspecified (4) Chronic obstructive pulmonary disease (COPD) TYLER NEGRO MD Jun 01, 2020 07:54
[2020-06-01] MEDS: CHOLECALCIFEROL (VITAMIN D3) 1,000 UNIT TABLET PO SCH (08:44)
[2020-06-01] MEDS: VITAMIN B COMPLEX CAPSULE. PO SCH (08:45)
[2020-06-01] MEDS: FLUTICASONE/VILANTEROL 200/25 INHALER. INH SCH (08:45)
[2020-06-01] MEDS: CARVEDILOL 6.25 MG TABLET PO SCH ×2 (08:45→20:15)
[2020-06-01] MEDS: amLODIPine BESYLATE 5 MG TABLET PO SCH (08:45)
[2020-06-01] MEDS: SALIVA STIMULANT AGENT 44ML SPRAY BOTTLE. PO PRN (10:06)
--- NOTE | 2020-06-01 11:09 | NUR ---
Nursing note: Pt in dining room for morning meds and assessment. She was pleasant, med compliant, and cooperative. Pt has spent most of the morning in the day room. Will continue to monitor.
[2020-06-01] MEDS: HYDROcodone/APAP 5/325MG 1 TAB TABLET PO PRN (16:12)
[2020-06-01 16:28] VITALS: BP 148/64
[2020-06-01] MEDS: DIVALPROEX ER 250 MG TAB.ER.24H. PO SCH (20:12)
[2020-06-01] MEDS: DIVALPROEX ER 500 MG TAB.ER.24H PO SCH (20:13)
[2020-06-01] MEDS: MELATONIN 3 MG TABLET PO SCH (20:13)
[2020-06-01] MEDS: ATORVASTATIN CALCIUM 20 MG TABLET PO SCH (20:14)
[2020-06-01] MEDS: ZIPRASIDONE 80 MG CAPSULE. PO SCH (20:14)
[2020-06-01] MEDS: MONTELUKAST 10 MG TABLET. PO SCH (20:14)
[2020-06-01] MEDS: LOSARTAN 50 MG TABLET. PO SCH (20:14)
[2020-06-01] MEDS: ALBUTEROL SULFATE 8GM INHALER. INH PRN (20:27)
--- NOTE | 2020-06-01 22:12 | PDOC ---
Exam Note: Mik Note: Please also refer to the separate dictated note~for this date of service dictated separately.~Patient seen individually. Discussed the patient with Nursing staff reviewed the chart.~Reviewed interim history and current functioning. Reviewed vital signs,~Labs/ Radiology~and current medications noted below. Continue current treatment with the changes noted in the dictated addendum note Assessment: Vital Signs/I&O: Vital Signs Date Time Temp Pulse Resp B/P (MAP) Pulse Ox O2 Delivery O2 Flow Rate FiO2 06/01/20 20:15 61 148/64 06/01/20 17:29 96 06/01/20 16:28 98.3 20 2.0 06/01/20 06:24 Nasal Cannula I & O 05/31/20 05/31/20 06/01/20 15:00 23:00 07:00 Intake Total 840 ml 360 ml Balance 840 ml 360 ml Current Medications: I have reviewed the current psychotropics carefully including drug interactions. Risk benefit ratio favors no change other than as noted in my dictated progress note. Diagnosis: Problems: (1) Bipolar 1 disorder, manic, moderate (2) Chronic obstructive pulmonary disease (COPD) (3) Impulse control disorder, unspecified (4) Anxiety disorder, unspecified TYLER NEGRO MD Jun 01, 2020 22:12
--- NOTE | 2020-06-01 22:49 | NUR ---
Patient in her room on the bed for initial assessment and medication administration. Pleasant and cooperative with cares. Alert and oriented, no behaviors noted at this time. Patient inquisitive about medications and wanted to know what each of them were prior to taking them. Interactive with this nurse. Continues to be on 2L NC. Will continue to monitor.
[2020-06-02] MEDS: SALIVA STIMULANT AGENT 44ML SPRAY BOTTLE. PO PRN (01:10)
[2020-06-02 06:09] VITALS: BP 128/69
[2020-06-02 06:42] LABS: BASO % 1 % (0-3); EOS # 0.2 x10^3/uL (0.0-0.7); EOS % 3 % (0-3); HEMATOCRIT 34.7 % (36.0-47.0); HEMOGLOBIN 11.4 g/dL (12.0-15.5); LYMPH # 0.7 x10^3/uL (1.0-4.8); LYMPH % 12 % (24-48); MEAN CORPUSCULAR HEMOGLOBIN 29 pg (25-35); MEAN CORPUSCULAR HGB CONC 33 g/dL (31-37); MEAN CORPUSCULAR VOLUME 88 fL (79-100); MONO # 0.6 x10^3/uL (0.0-1.1); MONO % 11 % (0-9); NEUT % 73 % (31-73); PLATELET COUNT 332 x10^3/uL (140-400); RED BLOOD COUNT 3.95 x10^6/uL (3.50-5.40); RED CELL DISTRIBUTION WIDTH 13.7 % (11.5-14.5); WHITE BLOOD COUNT 5.5 x10^3/uL (4.0-11.0)
[2020-06-02 06:53] LABS: ALBUMIN 2.7 g/dL (3.4-5.0); ALBUMIN/GLOBULIN RATIO 0.8 (1.0-1.7); ALK PHOS 64 U/L (46-116); ALT (SGPT) 21 U/L (14-59); ANION GAP 1 (6-14); AST (SGOT) 13 U/L (15-37); BLOOD UREA NITROGEN 9 mg/dL (7-20); BUN/CREATININE RATIO 11 (6-20); CALCIUM 8.9 mg/dL (8.5-10.1); CARBON DIOXIDE 36 mmol/L (21-32); CHLORIDE 102 mmol/L (98-107); CREATININE 0.8 mg/dL (0.6-1.0); GFR 70.9; GLUCOSE 113 mg/dL (70-99); POTASSIUM 4.9 mmol/L (3.5-5.1); SODIUM 139 mmol/L (136-145); TOTAL BILIRUBIN 0.3 mg/dL (0.2-1.0); VAL ACID 47 mcg/mL (50-100)
[2020-06-02] MEDS: ALBUTEROL SULFATE 8GM INHALER. INH PRN ×2 (08:16→16:47)
[2020-06-02] MEDS: FLUTICASONE/VILANTEROL 200/25 INHALER. INH SCH (08:16)
[2020-06-02] MEDS: VITAMIN B COMPLEX CAPSULE. PO SCH (08:18)
[2020-06-02] MEDS: CHOLECALCIFEROL (VITAMIN D3) 1,000 UNIT TABLET PO SCH (08:19)
[2020-06-02] MEDS: CARVEDILOL 6.25 MG TABLET PO SCH ×2 (08:19→21:42)
[2020-06-02] MEDS: amLODIPine BESYLATE 5 MG TABLET PO SCH (08:19)
[2020-06-02] MEDS: HYDROcodone/APAP 5/325MG 1 TAB TABLET PO PRN ×2 (09:38→21:41)
--- NOTE | 2020-06-02 10:07 | NUR ---
Pt is calm, cooperative compliant but withdrawn to her room. no agitation, no aggression, no hallucinations or delusions noted. She is compliant with her medications and assessment.
--- NOTE | 2020-06-02 12:06 | NUR ---
PT informed nurse while working with pt, pt began to feel dizzy. Upon assessment nurse noticed no change in pts color or mentation. Pt was able to follow commands and make wants and needs known. Pt jstated she felt tired and dizzy. Pt was sitting in her wc. VS: 110/70, 56 95% on RA. Nurse had pt stand up. VS: 78/54, 68, 94% on RA. Shared with information with PT and all staff. Dr. Doran will address today during rounds. Addendum: 06/04/20 at 1032 by CURT RYAN RN wrong pt. disregard this note for this patient.
[2020-06-02 16:17] VITALS: BP 159/80
[2020-06-02] MEDS: DIVALPROEX ER 500 MG TAB.ER.24H PO SCH (21:00)
[2020-06-02] MEDS: DIVALPROEX ER 250 MG TAB.ER.24H. PO SCH (21:40)
[2020-06-02] MEDS: ZIPRASIDONE 80 MG CAPSULE. PO SCH (21:41)
[2020-06-02] MEDS: MELATONIN 3 MG TABLET PO SCH (21:41)
[2020-06-02] MEDS: MONTELUKAST 10 MG TABLET. PO SCH (21:41)
[2020-06-02] MEDS: ATORVASTATIN CALCIUM 20 MG TABLET PO SCH (21:41)
[2020-06-02] MEDS: LOSARTAN 50 MG TABLET. PO SCH (21:42)
--- NOTE | 2020-06-02 22:13 | PDOC ---
Exam Note: Mik Note: Please also refer to the separate dictated note~for this date of service dictated separately.~Patient seen individually. Discussed the patient with Nursing staff reviewed the chart.~Reviewed interim history and current functioning. Reviewed vital signs,~Labs/ Radiology~and current medications noted below. Continue current treatment with the changes noted in the dictated addendum note Assessment: Vital Signs/I&O: Vital Signs Date Time Temp Pulse Resp B/P (MAP) Pulse Ox O2 Delivery O2 Flow Rate FiO2 06/02/20 21:42 73 159/80 06/02/20 21:41 93 06/02/20 16:17 97.8 18 Nasal Cannula 2.0 I & O 06/01/20 06/01/20 06/02/20 15:00 23:00 07:00 Intake Total 720 ml 360 ml Balance 720 ml 360 ml Labs: Laboratory Tests Test 06/02/20 06:20 White Blood Count 5.5 x10^3/uL (4.0-11.0) Red Blood Count 3.95 x10^6/uL (3.50-5.40) Hemoglobin 11.4 g/dL (12.0-15.5) L Hematocrit 34.7 % (36.0-47.0) L Mean Corpuscular Volume 88 fL (79-100) Mean Corpuscular Hemoglobin 29 pg (25-35) Mean Corpuscular Hemoglobin Concent 33 g/dL (31-37) Red Cell Distribution Width 13.7 % (11.5-14.5) Platelet Count 332 x10^3/uL (140-400) Neutrophils (%) (Auto) 73 % (31-73) Lymphocytes (%) (Auto) 12 % (24-48) L Monocytes (%) (Auto) 11 % (0-9) H Eosinophils (%) (Auto) 3 % (0-3) Basophils (%) (Auto) 1 % (0-3) Neutrophils # (Auto) 4.0 x10^3uL (1.8-7.7) Lymphocytes # (Auto) 0.7 x10^3/uL (1.0-4.8) L Monocytes # (Auto) 0.6 x10^3/uL (0.0-1.1) Eosinophils # (Auto) 0.2 x10^3/uL (0.0-0.7) Basophils # (Auto) 0.0 x10^3/uL (0.0-0.2) Sodium Level 139 mmol/L (136-145) Potassium Level 4.9 mmol/L (3.5-5.1) Chloride Level 102 mmol/L (98-107) Carbon Dioxide Level 36 mmol/L (21-32) H Anion Gap 1 (6-14) L Blood Urea Nitrogen 9 mg/dL (7-20) Creatinine 0.8 mg/dL (0.6-1.0) Estimated GFR (Cockcroft-Gault) 70.9 BUN/Creatinine Ratio 11 (6-20) Glucose Level 113 mg/dL (70-99) H Calcium Level 8.9 mg/dL (8.5-10.1) Total Bilirubin 0.3 mg/dL (0.2-1.0) Aspartate Amino Transferase (AST) 13 U/L (15-37) L Alanine Aminotransferase (ALT) 21 U/L (14-59) Alkaline Phosphatase 64 U/L (46-116) Total Protein 6.0 g/dL (6.4-8.2) L Albumin 2.7 g/dL (3.4-5.0) L Albumin/Globulin Ratio 0.8 (1.0-1.7) L Valproic Acid Level 47 mcg/mL (50-100) L Valproic Acid Last Dose Date 06/01/2020 Valproic Acid Last Dose Time 2100 Current Medications: Meds: Current Medications Medications (Trade) Dose Ordered Sig/Justin Route PRN Reason Start Time Stop Time Status Last Admin Dose Admin Divalproex Sodium (Depakote Er) 1,000 mg QHS PO 06/02/20 21:00 06/02/20 21:00 I have reviewed the current psychotropics carefully including drug interactions. Risk benefit ratio favors no change other than as noted in my dictated progress note. Diagnosis: Problems: (1) Bipolar 1 disorder, manic, moderate (2) Chronic obstructive pulmonary disease (COPD) (3) Impulse control disorder, unspecified (4) Anxiety disorder, unspecified TYLER NEGRO MD Jun 02, 2020 22:13
--- NOTE | 2020-06-02 22:48 | NUR ---
Pt located in her room all evening. Pt calm and pleasant until she was informed that her Depakote dose was increased. Pt became irritable and stated that she was not taking any medication and she "might as well just ." Nurse informed pt that she would not receive any pain medication until she took all of her HS medication. Later in the evening during 15 minute checks, pt stated that she was ready to take all of her medication. During the interaction, pt was very sarcastic but was compliant with medications.
[2020-06-03 05:07] VITALS: BP 121/76
--- NOTE | 2020-06-03 07:43 | PDOC ---
Exam Note: Mik Note: This note is a late entry for 06/01/2020 covers elements not covered in my initial note. Subjective: The patient was seen individually in the evening of 06/01/2020. Per Sophia WATT she slept 5-1/4 hours previous night. The day has had a good day, has been polite and I met with her in her room. She was still trying to show me how to salute differently for the [employer] amongst other things. She continues to have some pressure of speech, better than before. Review of Systems: She complains of shortness of breath. Impaired ambulation. No CV, , eye system symptoms on review. Mental Status Exam: Reasonably oriented. Speech coherent, pressured at times. Abstraction fair. Computation impaired. Language function intact. Attention span short. Mood and affect remains withdrawn, compliant. Laboratory Data: Reviewed. Impression: Bipolar disorder manic with psychotic features, anxiety disorder unspecified, impulse control disorder unspecified. Plan: No change from initial note. Labs will be repeated on 06/02 including valproic acid level. Geodon has been reduced from 120 mg h.s. down to 80 mg h.s. Continue rest unchanged. Assessment: Vital Signs/I&O: Vital Signs Date Time Temp Pulse Resp B/P (MAP) Pulse Ox O2 Delivery O2 Flow Rate FiO2 06/03/20 05:07 97.9 57 18 121/76 (91) 96 2.0 06/02/20 16:17 Nasal Cannula I & O 06/02/20 06/02/20 06/03/20 15:00 23:00 07:00 Intake Total 1200 ml 360 ml Balance 1200 ml 360 ml Current Medications: Meds: Current Medications Medications (Trade) Dose Ordered Sig/Justin Route PRN Reason Start Time Stop Time Status Last Admin Dose Admin Divalproex Sodium (Depakote Er) 1,000 mg QHS PO 06/02/20 21:00 06/02/20 21:00 I have reviewed the current psychotropics carefully including drug interactions. Risk benefit ratio favors no change other than as noted in my dictated progress note. Diagnosis: Problems: (1) Bipolar 1 disorder, manic, moderate (2) Chronic obstructive pulmonary disease (COPD) (3) Impulse control disorder, unspecified (4) Anxiety disorder, unspecified TYLER NEGRO MD Jun 03, 2020 07:43
[2020-06-03] MEDS: CARVEDILOL 6.25 MG TABLET PO SCH ×2 (08:19→21:07)
[2020-06-03] MEDS: FLUTICASONE/VILANTEROL 200/25 INHALER. INH SCH (08:19)
[2020-06-03] MEDS: VITAMIN B COMPLEX CAPSULE. PO SCH (08:19)
[2020-06-03] MEDS: CHOLECALCIFEROL (VITAMIN D3) 1,000 UNIT TABLET PO SCH (08:20)
[2020-06-03] MEDS: amLODIPine BESYLATE 5 MG TABLET PO SCH (08:20)
--- NOTE | 2020-06-03 08:30 | PDOC ---
Exam Note: Mik Note: This note is a late entry for 06/02/2020 covers elements not covered in my initial note. Subjective: The patient was seen individually in the evening of 06/02/2020. Per Jeanna WATT overall the patient has been less withdrawn, less labile in her mood. Valproic acid level is 47 on Depakote ER 750 mg h.s. We will increase to 1250 mg h.s. Check CBC, CMP, valproic acid level in 3 days. She did well at night but during the day she has been withdrawn. Review of Systems: She complains of shortness of breath. Impaired ambulation. No CV, , eye system symptoms on review. Mental Status Exam: Reasonably oriented. Speech coherent. Abstraction fair. Computation impaired. Language function intact. Attention span fair. Mood and affect improved. Laboratory Data: Reviewed. Impression: Bipolar disorder manic with psychotic features, anxiety disorder unspecified, impulse control disorder unspecified. Plan: No change from initial note. Increase the Depakote ER from 750 mg h.s. to 1250 mg h.s. Check CBC, CMP, valproic acid level in 3 days to reach therapeutic level. Assessment: Vital Signs/I&O: Vital Signs Date Time Temp Pulse Resp B/P (MAP) Pulse Ox O2 Delivery O2 Flow Rate FiO2 06/03/20 08:20 57 121/76 06/03/20 05:07 97.9 18 96 2.0 06/02/20 16:17 Nasal Cannula I & O 06/02/20 06/02/20 06/03/20 15:00 23:00 07:00 Intake Total 1200 ml 360 ml Balance 1200 ml 360 ml Current Medications: Meds: Current Medications Medications (Trade) Dose Ordered Sig/Justin Route PRN Reason Start Time Stop Time Status Last Admin Dose Admin Divalproex Sodium (Depakote Er) 1,000 mg QHS PO 06/02/20 21:00 06/02/20 21:00 I have reviewed the current psychotropics carefully including drug interactions. Risk benefit ratio favors no change other than as noted in my dictated progress note. Diagnosis: Problems: (1) Bipolar 1 disorder, manic, moderate (2) Chronic obstructive pulmonary disease (COPD) (3) Impulse control disorder, unspecified (4) Anxiety disorder, unspecified TYLER NEGRO MD Jun 03, 2020 08:30
[2020-06-03] MEDS: ALBUTEROL SULFATE 8GM INHALER. INH PRN ×3 (08:47→18:09)
--- NOTE | 2020-06-03 15:22 | NUR ---
Patient in dining room during initial assessment. Calm and cooperative with assessment and care. Medications taken whole without difficulty. Patient questioned each medication but did not refuse any. Interactive with nurse and other patients. No behaviors at this time. Participated in the afternoon group session. Will continue to monitor.
[2020-06-03 16:13] VITALS: BP 106/66
[2020-06-03] MEDS: HYDROcodone/APAP 5/325MG 1 TAB TABLET PO PRN ×2 (18:07→22:14)
[2020-06-03] MEDS: MELATONIN 3 MG TABLET PO SCH (21:07)
[2020-06-03] MEDS: ZIPRASIDONE 80 MG CAPSULE. PO SCH (21:07)
[2020-06-03] MEDS: ATORVASTATIN CALCIUM 20 MG TABLET PO SCH (21:07)
[2020-06-03] MEDS: DIVALPROEX ER 500 MG TAB.ER.24H PO SCH (21:08)
[2020-06-03] MEDS: DIVALPROEX ER 250 MG TAB.ER.24H. PO SCH (21:08)
[2020-06-03] MEDS: LOSARTAN 50 MG TABLET. PO SCH (21:09)
[2020-06-03] MEDS: MONTELUKAST 10 MG TABLET. PO SCH (21:09)
--- NOTE | 2020-06-03 23:04 | PDOC ---
Exam Note: Mik Note: Please also refer to the separate dictated note~for this date of service dictated separately.~Patient seen individually. Discussed the patient with Nursing staff reviewed the chart.~Reviewed interim history and current functioning. Reviewed vital signs,~Labs/ Radiology~and current medications noted below. Continue current treatment with the changes noted in the dictated addendum note Assessment: Vital Signs/I&O: Vital Signs Date Time Temp Pulse Resp B/P (MAP) Pulse Ox O2 Delivery O2 Flow Rate FiO2 06/03/20 22:14 Nasal Cannula 2.0 06/03/20 21:09 70 106/66 06/03/20 18:07 97 06/03/20 16:13 98.2 18 I & O 06/02/20 06/02/20 06/03/20 15:00 23:00 07:00 Intake Total 1200 ml 360 ml Balance 1200 ml 360 ml Current Medications: I have reviewed the current psychotropics carefully including drug interactions. Risk benefit ratio favors no change other than as noted in my dictated progress note. Diagnosis: Problems: (1) Bipolar 1 disorder, manic, moderate (2) Chronic obstructive pulmonary disease (COPD) (3) Impulse control disorder, unspecified (4) Anxiety disorder, unspecified TYLER NEGRO MD Jun 03, 2020 23:04
--- NOTE | 2020-06-03 23:29 | NUR ---
Pt has been in her room this shift. She said she is depressed again because she is on Depakote and Geodon. When asking her about how she is doing she would only reply "no comment". She took her meds whole but wanted to wait to take them until she could have another hydrocodone at the same time.
[2020-06-04 05:20] VITALS: BP 148/69
[2020-06-04] MEDS: VITAMIN B COMPLEX CAPSULE. PO SCH (08:23)
[2020-06-04] MEDS: CARVEDILOL 6.25 MG TABLET PO SCH ×2 (08:23→20:45)
[2020-06-04] MEDS: CHOLECALCIFEROL (VITAMIN D3) 1,000 UNIT TABLET PO SCH (08:23)
[2020-06-04] MEDS: FLUTICASONE/VILANTEROL 200/25 INHALER. INH SCH (08:24)
[2020-06-04] MEDS: amLODIPine BESYLATE 5 MG TABLET PO SCH (08:24)
[2020-06-04] MEDS: HYDROcodone/APAP 5/325MG 1 TAB TABLET PO PRN ×3 (08:29→20:47)
[2020-06-04] MEDS: ALBUTEROL SULFATE 8GM INHALER. INH PRN ×2 (08:56→21:07)
--- NOTE | 2020-06-04 10:30 | NUR ---
Nursing note: Pt in dining room for morning meds and assessment. She was pleasant, med compliant, and cooperative. Pt c/o pain in her back and neck 09/05 and requested PRN lortab and ventolin inhaler. PRNs provided at that time. She has been withdrawn to her room this morning. Will continue to monitor.
--- NOTE | 2020-06-04 11:05 | NUR ---
WEEKLY ACTIVITY THERAPY NOTE Date of Admission: 05/18/20 Date of AT Assessment: 05/21/2020 Precipitating behaviors that initiated intake and admission: anxiety, agitation, manic, defiant, guarded, paranoid, refusing medications, not sleeping, psychogenic polydipsia Goal aimed: to increase socialization and relaxation Initial Goal: Pt. will participate in at least three Activity Therapy groups per week. Weekly progress towards goal: 03/29 Group participation level: 3 full, 1 mod, 1 min Weekly highlights: inviting to others in group on Monday morning Behaviors observed: when around group- Pt is fully engaged and pleasant without assistance, labored breathing but always uses oxygen, increased participation this week overall, joaquin staff Plan: no change to goal Beneficial adaptations:
--- NOTE | 2020-06-04 14:30 | NUR ---
SW met with pt who wanted to find out what her discharge plan would look like. At this time, SW has pt down to discharge on Monday and would have to talk to her dtr and the facility to see what arrangements for transport, etc could be made. Pt did mention a staff member at [facility], Froylan Dean, who she is not fond of and she has expressed her concerns to Rosina, the church business administrator. She would like to know what happened to this staff member prior to discharge if possible. Pt talked about her history and discussed things within her family, in which she reports that she has not told anyone on [facility] about until now. Pt discussed her concerns with Medications and really does not wish to take Melatonin on top of the Depakote. "It makes me so tired and I know they want me to sleep, but honestly, who can sleep in all the noise that happens around here. People yell help me and then staff peek their head in all the time. There is no sleeping in a hospital". Pt then laughed and said "poor Mohan. He was my nurse last night and kept asking me questions and all I would say is no comment. He's not a problem but with the mood I was in last night I just though the less I said the better". Pt requested that SW pray with her in hopes that everything set up will prove to make a successful and smooth transition home.
[2020-06-04 15:39] VITALS: BP 149/70
--- NOTE | 2020-06-04 18:42 | TX PLAN ---
Interdisciplinary Tx Plan Admission Information May 18, 2020 at 20:25 Legal Status (on Admission): Voluntary DPOA/Guardian Name: Cary Washington Contact Other Contact Name: Matty Gonzales Other Contact Verified Code Status: Full Code Allergies: Coded Allergies: No Known Drug Allergies (Unverified , 05/18/20) Diagnoses Primary Diagnosis: Bipolar D/O, depressed with psychotic features, Cognitive D/O, rule out Dementia Reasons for Admission: Agitated, Sig. Change Sleep, Suspicious/paranoid, Poor impulse control, Other Problem in Patient's Words: Her manic episodes have been increasing and are not properly managed Additional Admission Comments: According to the intake, she refuses medications at times, non-compliant with fluid restrictions, defiant, oppositional, guarded, paranoid, insomnia, calling her [facility] at night, uncooperative, agitated, delusional and manic, dismisses staff, restless and fidgety. Problems Active Problems: resitive to medications manic non-compliance with fluid restriction Inactive Problems: None at this moment Pt Strengths/Limitations Ability for Powell: Poor Cognitive Functioning/Ability: Poor Communication Skills/Ability: Fair Financial Resources: Fair Insight/Judgement: Poor Intellectual Ability: Fair Physical Health: Poor Social Skills: Fair Stability in Family: Fair Stability in School/Work: Poor Verbal Skills: Fair Discharge Criteria Discharge Criteria: Able meet basic life need, No need for close observ., Adequate arrangements @DC, Improved behavior, Improved mood/thought Preliminary Discharge Plan Preliminary DC Plan: Assisted Living Special Precautions Fall Risk: Low Initial D/C Plan Pt at this time will plan to discharge back to [facility] once stable. Identified Discharge Needs: Psychiatric services Currently Utilized Resources Currently Utilized Resources/P: Primary Care Physician Psychiatric consultation Referrals Community Resources: Mental health services Identified Problems/Hx/Goals Objectives/Short-Term Goals Short Term Goals: Control abnormal behavior, Medication Stabilization, Promote Coping Skill Short Term Goals in Patient's: "I'm leaving here tonight" Interventions/Frequency Staff Interventions/Frequency&: Psychiatrist to assess pt at least 3x per week. Social Work to asses pt at least 2x per week. Nursing to assess medications, behaviors and complete 15 minute checks daily. Encourage group participation in activities or 1:1 engagement based of the activity dept. assessment. 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 Education: Did graduate high from [employer] Community Follow-up PCP mental health services Community Provider/Family Inpu: She has lived a very tumultuous life. The last 15 years have been her best and we'd like to make sure she can maintain longer at her current residence with [facility]. Treatment Plan Explained Patient/Deicer Tester had this treatment plan explained to him/her as indicated by the signature below and has been given the opportunity to ask questions and make suggestions: Date: Patient/Deicer Tester Signature: Status Update Update Pt is eating roughly 75% and sleeping on average 6 hours per night. Pt is calm and mostly cooperative with cares. Pt does have apprehension re: taking some of her medications due to "them being too much or not needed" however, is not given the option to decline them. Pt is on 2L of continuous oxygen and it appears that pt VPA is therapeutic. Pt is withdrawn to her room often and needs encouragement to come out. Pt will plan to return to [facility] on Sunday 06/10. SW will work with pt shell Prieto at [facility] to finalize discharge. SAQIB YUEN Jun 04, 2020 18:42
[2020-06-04] MEDS: MONTELUKAST 10 MG TABLET. PO SCH (20:44)
[2020-06-04] MEDS: LOSARTAN 50 MG TABLET. PO SCH (20:45)
[2020-06-04] MEDS: ZIPRASIDONE 80 MG CAPSULE. PO SCH (20:45)
[2020-06-04] MEDS: MELATONIN 3 MG TABLET PO SCH (20:46)
[2020-06-04] MEDS: ATORVASTATIN CALCIUM 20 MG TABLET PO SCH (20:46)
[2020-06-04] MEDS: DIVALPROEX ER 250 MG TAB.ER.24H. PO SCH (20:47)
[2020-06-04] MEDS: DIVALPROEX ER 500 MG TAB.ER.24H PO SCH (20:47)
--- NOTE | 2020-06-04 22:16 | PDOC ---
Exam Note: Mik Note: Please also refer to the separate dictated note~for this date of service dictated separately.~Patient seen individually. Discussed the patient with Nursing staff reviewed the chart.~Reviewed interim history and current functioning. Reviewed vital signs,~Labs/ Radiology~and current medications noted below. Continue current treatment with the changes noted in the dictated addendum note Assessment: Vital Signs/I&O: Vital Signs Date Time Temp Pulse Resp B/P (MAP) Pulse Ox O2 Delivery O2 Flow Rate FiO2 06/04/20 20:47 Nasal Cannula 2.0 06/04/20 20:45 66 149/70 06/04/20 15:39 97.6 16 95 I & O 06/03/20 06/03/20 06/04/20 15:00 23:00 07:00 Intake Total 840 ml 360 ml 120 ml Balance 840 ml 360 ml 120 ml Current Medications: I have reviewed the current psychotropics carefully including drug interactions. Risk benefit ratio favors no change other than as noted in my dictated progress note. Diagnosis: Problems: (1) Bipolar 1 disorder, manic, moderate (2) Chronic obstructive pulmonary disease (COPD) (3) Impulse control disorder, unspecified (4) Anxiety disorder, unspecified TYLER NEGRO MD Jun 04, 2020 22:16
--- NOTE | 2020-06-05 03:41 | NUR ---
Pt has been in her room this shift. She considered not taking her Geodon saying it makes her depressed if taken with Depakote but she did take all of her HS meds whole. PRN albuterol inhaler was given for SOA with good relief. She has had no behaviors and is sleeping well.
[2020-06-05 06:25] VITALS: BP 145/77
[2020-06-05 06:44] LABS: BASO % 1 % (0-3); EOS # 0.2 x10^3/uL (0.0-0.7); EOS % 4 % (0-3); HEMATOCRIT 35.1 % (36.0-47.0); HEMOGLOBIN 11.7 g/dL (12.0-15.5); LYMPH # 0.7 x10^3/uL (1.0-4.8); LYMPH % 14 % (24-48); MEAN CORPUSCULAR HEMOGLOBIN 29 pg (25-35); MEAN CORPUSCULAR HGB CONC 33 g/dL (31-37); MEAN CORPUSCULAR VOLUME 88 fL (79-100); MONO # 0.6 x10^3/uL (0.0-1.1); MONO % 13 % (0-9); NEUT # 3.4 x10^3uL (1.8-7.7); NEUT % 69 % (31-73); PLATELET COUNT 323 x10^3/uL (140-400); RED BLOOD COUNT 3.99 x10^6/uL (3.50-5.40); RED CELL DISTRIBUTION WIDTH 13.6 % (11.5-14.5)
[2020-06-05 07:08] LABS: ALBUMIN 2.7 g/dL (3.4-5.0); ALBUMIN/GLOBULIN RATIO 0.8 (1.0-1.7); ALK PHOS 62 U/L (46-116); ALT (SGPT) 21 U/L (14-59); ANION GAP 3 (6-14); AST (SGOT) 12 U/L (15-37); BLOOD UREA NITROGEN 8 mg/dL (7-20); BUN/CREATININE RATIO 11 (6-20); CALCIUM 8.7 mg/dL (8.5-10.1); CARBON DIOXIDE 36 mmol/L (21-32); CHLORIDE 102 mmol/L (98-107); CREATININE 0.7 mg/dL (0.6-1.0); GFR 82.7; GLUCOSE 106 mg/dL (70-99); POTASSIUM 4.6 mmol/L (3.5-5.1); SODIUM 141 mmol/L (136-145); TOTAL BILIRUBIN 0.2 mg/dL (0.2-1.0)
[2020-06-05 07:13] LABS: VAL ACID 66 mcg/mL (50-100)
--- NOTE | 2020-06-05 07:27 | PDOC ---
Exam Note: Mik Note: This note is a late entry for 06/03/2020 covers elements not covered in my initial note. Subjective: The patient was seen individually in the evening of 06/03/2020. Per Patricia WATT she slept 6-3/4 hours previous night. She is interactive in groups, somewhat more chatty and appropriate. Review of Systems: Positive for shortness of breath on O2 supplements.. Impaired ambulation on walker. No CV, , eye system symptoms on review. Mental Status Exam: Reasonably oriented. Speech coherent. Abstraction fair. Computation impaired. Language function intact. Attention span fair. Mood and affect improved. Laboratory Data: Reviewed. Impression: Bipolar disorder manic with psychotic features, anxiety disorder unspecified, impulse control disorder unspecified. Plan: No change from initial note. Her bipolar mood swings, paranoia appear to be improving. Adjust further as clinically indicated. Assessment: Vital Signs/I&O: Vital Signs Date Time Temp Pulse Resp B/P (MAP) Pulse Ox O2 Delivery O2 Flow Rate FiO2 06/05/20 06:25 98.0 60 18 145/77 (99) 96 06/04/20 22:00 Nasal Cannula 2.0 I & O 06/04/20 06/04/20 06/05/20 15:00 23:00 07:00 Intake Total 720 ml 600 ml Balance 720 ml 600 ml Labs: Laboratory Tests Test 06/05/20 06:33 White Blood Count 5.0 x10^3/uL (4.0-11.0) Red Blood Count 3.99 x10^6/uL (3.50-5.40) Hemoglobin 11.7 g/dL (12.0-15.5) L Hematocrit 35.1 % (36.0-47.0) L Mean Corpuscular Volume 88 fL (79-100) Mean Corpuscular Hemoglobin 29 pg (25-35) Mean Corpuscular Hemoglobin Concent 33 g/dL (31-37) Red Cell Distribution Width 13.6 % (11.5-14.5) Platelet Count 323 x10^3/uL (140-400) Neutrophils (%) (Auto) 69 % (31-73) Lymphocytes (%) (Auto) 14 % (24-48) L Monocytes (%) (Auto) 13 % (0-9) H Eosinophils (%) (Auto) 4 % (0-3) H Basophils (%) (Auto) 1 % (0-3) Neutrophils # (Auto) 3.4 x10^3uL (1.8-7.7) Lymphocytes # (Auto) 0.7 x10^3/uL (1.0-4.8) L Monocytes # (Auto) 0.6 x10^3/uL (0.0-1.1) Eosinophils # (Auto) 0.2 x10^3/uL (0.0-0.7) Basophils # (Auto) 0.0 x10^3/uL (0.0-0.2) Sodium Level 141 mmol/L (136-145) Potassium Level 4.6 mmol/L (3.5-5.1) Chloride Level 102 mmol/L (98-107) Carbon Dioxide Level 36 mmol/L (21-32) H Anion Gap 3 (6-14) L Blood Urea Nitrogen 8 mg/dL (7-20) Creatinine 0.7 mg/dL (0.6-1.0) Estimated GFR (Cockcroft-Gault) 82.7 BUN/Creatinine Ratio 11 (6-20) Glucose Level 106 mg/dL (70-99) H Calcium Level 8.7 mg/dL (8.5-10.1) Total Bilirubin 0.2 mg/dL (0.2-1.0) Aspartate Amino Transferase (AST) 12 U/L (15-37) L Alanine Aminotransferase (ALT) 21 U/L (14-59) Alkaline Phosphatase 62 U/L (46-116) Total Protein 6.0 g/dL (6.4-8.2) L Albumin 2.7 g/dL (3.4-5.0) L Albumin/Globulin Ratio 0.8 (1.0-1.7) L Valproic Acid Level 66 mcg/mL (50-100) Valproic Acid Last Dose Date 06/04/20 Valproic Acid Last Dose Time 2100 Current Medications: I have reviewed the current psychotropics carefully including drug interactions. Risk benefit ratio favors no change other than as noted in my dictated progress note. Diagnosis: Problems: (1) Bipolar 1 disorder, manic, moderate (2) Chronic obstructive pulmonary disease (COPD) (3) Impulse control disorder, unspecified (4) Anxiety disorder, unspecified TYLER NEGRO MD Jun 05, 2020 07:27
--- NOTE | 2020-06-05 07:48 | PDOC ---
Exam Note: Mik Note: This note is a late entry for 06/04/2020 covers elements not covered in my initial note. Subjective: The patient was seen individually in the morning of 06/04/2020 with treatment team meeting with Tacho (social service staff), [facility] staff, Jeanna WATT. The patient was also seen in the evening with Sophia WATT. Appetite is 50%. She slept 6 hours previous night. Review of Systems: Positive for shortness of breath on O2 supplements. Impaired ambulation. No CV, , eye system symptoms on review. Mental Status Exam: Reasonably oriented. Speech coherent. Abstraction fair. Computation impaired. Language function intact. Attention span fair. Mood and affect, paranoia improving. Laboratory Data: Reviewed. Impression: Bipolar disorder manic with psychotic features, anxiety disorder unspecified, impulse control disorder unspecified. Plan: No change from initial note. Assessment: Vital Signs/I&O: Vital Signs Date Time Temp Pulse Resp B/P (MAP) Pulse Ox O2 Delivery O2 Flow Rate FiO2 06/05/20 06:25 98.0 60 18 145/77 (99) 96 06/04/20 22:00 Nasal Cannula 2.0 I & O 0 06/04/20 06/04/20 06/05/20 15:00 23:00 07:00 Intake Total 720 ml 600 ml Balance 720 ml 600 ml Labs: Laboratory Tests Test 06/05/20 06:33 White Blood Count 5.0 x10^3/uL (4.0-11.0) Red Blood Count 3.99 x10^6/uL (3.50-5.40) Hemoglobin 11.7 g/dL (12.0-15.5) L Hematocrit 35.1 % (36.0-47.0) L Mean Corpuscular Volume 88 fL (79-100) Mean Corpuscular Hemoglobin 29 pg (25-35) Mean Corpuscular Hemoglobin Concent 33 g/dL (31-37) Red Cell Distribution Width 13.6 % (11.5-14.5) Platelet Count 323 x10^3/uL (140-400) Neutrophils (%) (Auto) 69 % (31-73) Lymphocytes (%) (Auto) 14 % (24-48) L Monocytes (%) (Auto) 13 % (0-9) H Eosinophils (%) (Auto) 4 % (0-3) H Basophils (%) (Auto) 1 % (0-3) Neutrophils # (Auto) 3.4 x10^3uL (1.8-7.7) Lymphocytes # (Auto) 0.7 x10^3/uL (1.0-4.8) L Monocytes # (Auto) 0.6 x10^3/uL (0.0-1.1) Eosinophils # (Auto) 0.2 x10^3/uL (0.0-0.7) Basophils # (Auto) 0.0 x10^3/uL (0.0-0.2) Sodium Level 141 mmol/L (136-145) Potassium Level 4.6 mmol/L (3.5-5.1) Chloride Level 102 mmol/L (98-107) Carbon Dioxide Level 36 mmol/L (21-32) H Anion Gap 3 (6-14) L Blood Urea Nitrogen 8 mg/dL (7-20) Creatinine 0.7 mg/dL (0.6-1.0) Estimated GFR (Cockcroft-Gault) 82.7 BUN/Creatinine Ratio 11 (6-20) Glucose Level 106 mg/dL (70-99) H Calcium Level 8.7 mg/dL (8.5-10.1) Total Bilirubin 0.2 mg/dL (0.2-1.0) Aspartate Amino Transferase (AST) 12 U/L (15-37) L Alanine Aminotransferase (ALT) 21 U/L (14-59) Alkaline Phosphatase 62 U/L (46-116) Total Protein 6.0 g/dL (6.4-8.2) L Albumin 2.7 g/dL (3.4-5.0) L Albumin/Globulin Ratio 0.8 (1.0-1.7) L Valproic Acid Level 66 mcg/mL (50-100) Valproic Acid Last Dose Date 06/04/20 Valproic Acid Last Dose Time 2100 Current Medications: I have reviewed the current psychotropics carefully including drug interactions. Risk benefit ratio favors no change other than as noted in my dictated progress note. Diagnosis: Problems: (1) Bipolar 1 disorder, manic, moderate (2) Chronic obstructive pulmonary disease (COPD) (3) Impulse control disorder, unspecified (4) Anxiety disorder, unspecified TYLER NEGRO MD Jun 05, 2020 07:48
[2020-06-05] MEDS: ALBUTEROL SULFATE 8GM INHALER. INH PRN ×2 (08:42→15:27)
[2020-06-05] MEDS: FLUTICASONE/VILANTEROL 200/25 INHALER. INH SCH (08:42)
[2020-06-05] MEDS: VITAMIN B COMPLEX CAPSULE. PO SCH (08:42)
[2020-06-05] MEDS: amLODIPine BESYLATE 5 MG TABLET PO SCH (08:43)
[2020-06-05] MEDS: CARVEDILOL 6.25 MG TABLET PO SCH ×2 (08:43→19:48)
[2020-06-05] MEDS: CHOLECALCIFEROL (VITAMIN D3) 1,000 UNIT TABLET PO SCH (08:43)
[2020-06-05] MEDS: HYDROcodone/APAP 5/325MG 1 TAB TABLET PO PRN ×2 (09:58→19:46)
--- NOTE | 2020-06-05 11:46 | NUR ---
Nursing note: Pt in dining room for morning meds and assessment. She was pleasant, med compliant, and cooperative. Pt c/o pain 10/10 in her low back and requested PRN lortab as well as PRN inhaler. They were provided for her. Pt spent some time in the day room this morning participating in group. Will continue to monitor.
[2020-06-05 15:42] VITALS: BP 123/72
[2020-06-05] MEDS: ATORVASTATIN CALCIUM 20 MG TABLET PO SCH (19:45)
[2020-06-05] MEDS: MELATONIN 3 MG TABLET PO SCH (19:45)
[2020-06-05] MEDS: DIVALPROEX ER 250 MG TAB.ER.24H. PO SCH (19:46)
[2020-06-05] MEDS: DIVALPROEX ER 500 MG TAB.ER.24H PO SCH (19:46)
[2020-06-05] MEDS: MONTELUKAST 10 MG TABLET. PO SCH (19:47)
[2020-06-05] MEDS: ZIPRASIDONE 80 MG CAPSULE. PO SCH (19:48)
[2020-06-05] MEDS: LOSARTAN 50 MG TABLET. PO SCH (19:48)
--- NOTE | 2020-06-05 22:04 | PDOC ---
Exam Note: Mik Note: Please also refer to the separate dictated note~for this date of service dictated separately.~Patient seen individually. Discussed the patient with Nursing staff reviewed the chart.~Reviewed interim history and current functioning. Reviewed vital signs,~Labs/ Radiology~and current medications noted below. Continue current treatment with the changes noted in the dictated addendum note Assessment: Vital Signs/I&O: Vital Signs Date Time Temp Pulse Resp B/P (MAP) Pulse Ox O2 Delivery O2 Flow Rate FiO2 06/05/20 19:48 64 123/72 06/05/20 19:46 Nasal Cannula 2.0 06/05/20 15:42 98.2 16 95 I & O 0 06/04/20 06/04/20 06/05/20 15:00 23:00 07:00 Intake Total 720 ml 600 ml Balance 720 ml 600 ml Labs: Laboratory Tests Test 06/05/20 06:33 White Blood Count 5.0 x10^3/uL (4.0-11.0) Red Blood Count 3.99 x10^6/uL (3.50-5.40) Hemoglobin 11.7 g/dL (12.0-15.5) L Hematocrit 35.1 % (36.0-47.0) L Mean Corpuscular Volume 88 fL (79-100) Mean Corpuscular Hemoglobin 29 pg (25-35) Mean Corpuscular Hemoglobin Concent 33 g/dL (31-37) Red Cell Distribution Width 13.6 % (11.5-14.5) Platelet Count 323 x10^3/uL (140-400) Neutrophils (%) (Auto) 69 % (31-73) Lymphocytes (%) (Auto) 14 % (24-48) L Monocytes (%) (Auto) 13 % (0-9) H Eosinophils (%) (Auto) 4 % (0-3) H Basophils (%) (Auto) 1 % (0-3) Neutrophils # (Auto) 3.4 x10^3uL (1.8-7.7) Lymphocytes # (Auto) 0.7 x10^3/uL (1.0-4.8) L Monocytes # (Auto) 0.6 x10^3/uL (0.0-1.1) Eosinophils # (Auto) 0.2 x10^3/uL (0.0-0.7) Basophils # (Auto) 0.0 x10^3/uL (0.0-0.2) Sodium Level 141 mmol/L (136-145) Potassium Level 4.6 mmol/L (3.5-5.1) Chloride Level 102 mmol/L (98-107) Carbon Dioxide Level 36 mmol/L (21-32) H Anion Gap 3 (6-14) L Blood Urea Nitrogen 8 mg/dL (7-20) Creatinine 0.7 mg/dL (0.6-1.0) Estimated GFR (Cockcroft-Gault) 82.7 BUN/Creatinine Ratio 11 (6-20) Glucose Level 106 mg/dL (70-99) H Calcium Level 8.7 mg/dL (8.5-10.1) Total Bilirubin 0.2 mg/dL (0.2-1.0) Aspartate Amino Transferase (AST) 12 U/L (15-37) L Alanine Aminotransferase (ALT) 21 U/L (14-59) Alkaline Phosphatase 62 U/L (46-116) Total Protein 6.0 g/dL (6.4-8.2) L Albumin 2.7 g/dL (3.4-5.0) L Albumin/Globulin Ratio 0.8 (1.0-1.7) L Valproic Acid Level 66 mcg/mL (50-100) Valproic Acid Last Dose Date 06/04/20 Valproic Acid Last Dose Time 2100 Current Medications: I have reviewed the current psychotropics carefully including drug interactions. Risk benefit ratio favors no change other than as noted in my dictated progress note. Diagnosis: Problems: (1) Bipolar 1 disorder, manic, moderate (2) Chronic obstructive pulmonary disease (COPD) (3) Impulse control disorder, unspecified (4) Anxiety disorder, unspecified TYLER NEGRO MD Jun 05, 2020 22:04
--- NOTE | 2020-06-06 00:59 | NUR ---
Last evening pt was in the day room watching a movie. She has been pleasant and cooperative. Meds were taken whole without difficulty. PRN hydrocodone given for report of back pain. Since going to bed she has been sleeping well. No behaviors tonight.
[2020-06-06 05:51] VITALS: BP 123/68
[2020-06-06] MEDS: FLUTICASONE/VILANTEROL 200/25 INHALER. INH SCH (08:38)
[2020-06-06] MEDS: ALBUTEROL SULFATE 8GM INHALER. INH PRN ×2 (08:38→17:10)
[2020-06-06] MEDS: VITAMIN B COMPLEX CAPSULE. PO SCH (08:39)
[2020-06-06] MEDS: CARVEDILOL 6.25 MG TABLET PO SCH ×2 (08:39→20:31)
[2020-06-06] MEDS: CHOLECALCIFEROL (VITAMIN D3) 1,000 UNIT TABLET PO SCH (08:39)
[2020-06-06] MEDS: cloNIDine TTS-3 1 PATCH PATCH TD SCH (08:39)
[2020-06-06] MEDS: amLODIPine BESYLATE 5 MG TABLET PO SCH (08:39)
[2020-06-06] MEDS: HYDROcodone/APAP 5/325MG 1 TAB TABLET PO PRN ×2 (10:59→20:40)
[2020-06-06 16:21] VITALS: BP 149/76
[2020-06-06] MEDS: DIVALPROEX ER 500 MG TAB.ER.24H PO SCH (20:30)
[2020-06-06] MEDS: MONTELUKAST 10 MG TABLET. PO SCH (20:30)
[2020-06-06] MEDS: ATORVASTATIN CALCIUM 20 MG TABLET PO SCH (20:30)
[2020-06-06] MEDS: DIVALPROEX ER 250 MG TAB.ER.24H. PO SCH (20:30)
[2020-06-06] MEDS: ZIPRASIDONE 80 MG CAPSULE. PO SCH (20:30)
[2020-06-06] MEDS: MELATONIN 3 MG TABLET PO SCH (20:31)
[2020-06-06] MEDS: LOSARTAN 50 MG TABLET. PO SCH (20:31)
--- NOTE | 2020-06-06 22:24 | PDOC ---
Exam Note: Mik Note: Please also refer to the separate dictated note~for this date of service dictated separately.~Patient seen individually. Discussed the patient with Nursing staff reviewed the chart.~Reviewed interim history and current functioning. Reviewed vital signs,~Labs/ Radiology~and current medications noted below. Continue current treatment with the changes noted in the dictated addendum note Assessment: Vital Signs/I&O: Vital Signs Date Time Temp Pulse Resp B/P (MAP) Pulse Ox O2 Delivery O2 Flow Rate FiO2 06/06/20 21:42 95 06/06/20 20:31 71 149/76 06/06/20 16:21 97.6 20 06/06/20 05:51 3.0 06/05/20 21:00 Nasal Cannula I & O 06/05/20 06/05/20 06/06/20 15:00 23:00 07:00 Intake Total 840 ml 830 ml Balance 840 ml 830 ml Current Medications: I have reviewed the current psychotropics carefully including drug interactions. Risk benefit ratio favors no change other than as noted in my dictated progress note. Diagnosis: Problems: (1) Bipolar 1 disorder, manic, moderate (2) Chronic obstructive pulmonary disease (COPD) (3) Impulse control disorder, unspecified (4) Anxiety disorder, unspecified TYLER NEGRO MD Jun 06, 2020 22:24
--- NOTE | 2020-06-06 22:35 | NUR ---
Pt located in her room this evening. Pt pleasant and interactive. Pt did not question her medications and was compliant with all of them. PRN Lortab administered with HS medications.
[2020-06-07 05:51] VITALS: BP 142/84
--- NOTE | 2020-06-07 07:04 | PDOC ---
Exam Note: Mik Note: This note is a late entry for 06/05/2020 covers elements not covered in my initial note. Subjective: The patient was seen individually in the evening of 06/05/2020. Per Sophia WATT she slept 6-1/2 hours previous night. She has been obsessing for not wanting Geodon and talked to me at length on rounds and then again was talking with Mohan RN with political consultant. Valproic acid level is 66. She states she feels more depressed on the Geodon, in fact she was manic and now since the bre is stabilizing she feels less euphoric as compared to how it was which she mistakenly points as being depressed. Review of Systems: Positive for shortness of breath on O2 supplements 2L. Impaired ambulation with walker at times ad merlyn. No CV, , eye system symptoms on review. Mental Status Exam: Oriented to herself. Speech coherent. Abstraction fair. Computation impaired. Language function intact. Attention span fair. Mood and affect somewhat depressed. Laboratory Data: Reviewed. Impression: Bipolar disorder manic with psychotic features, anxiety disorder unspecified, impulse control disorder unspecified. Plan: No change from initial note. Valproic acid level is therapeutic at 66. We will keep Depakote unchanged. Assessment: Vital Signs/I&O: Vital Signs Date Time Temp Pulse Resp B/P (MAP) Pulse Ox O2 Delivery O2 Flow Rate FiO2 06/07/20 05:51 98.0 64 18 142/84 (103) 97 2.5 06/05/20 21:00 Nasal Cannula I & O 06/06/20 06/06/20 06/07/20 15:00 23:00 07:00 Intake Total 600 ml 240 ml Balance 600 ml 240 ml Current Medications: I have reviewed the current psychotropics carefully including drug interactions. Risk benefit ratio favors no change other than as noted in my dictated progress note. Diagnosis: Problems: (1) Bipolar 1 disorder, manic, moderate (2) Chronic obstructive pulmonary disease (COPD) (3) Impulse control disorder, unspecified (4) Anxiety disorder, unspecified TYLER NEGRO MD Jun 07, 2020 07:04
--- NOTE | 2020-06-07 07:29 | PDOC ---
Exam Note: Mik Note: This note is a late entry for 06/06/2020 covers elements not covered in my initial note. Subjective: The patient was seen individually in the evening of 06/06/2020. Per Jeanna WATT she slept 6-3/4 hours previous night. I met with her in her room. She was less fixated on not wanting the Geodon and hypomania appears to be improving as well. She did well previous night and during the day today. Review of Systems: Positive for shortness of breath on O2 supplements. Impaired ambulation. No CV, , eye system symptoms on review. Mental Status Exam: Reasonably oriented. Speech coherent. Abstraction fair. Computation impaired. Language function intact. Attention span fair. Mood and affect improved. Laboratory Data: Reviewed. Impression: Bipolar disorder manic with psychotic features, anxiety disorder u nspecified, impulse control disorder unspecified. Plan: No change from initial note. Assessment: Vital Signs/I&O: Vital Signs Date Time Temp Pulse Resp B/P (MAP) Pulse Ox O2 Delivery O2 Flow Rate FiO2 06/07/20 05:51 98.0 64 18 142/84 (103) 97 2.5 06/05/20 21:00 Nasal Cannula I & O 06/06/20 06/06/20 06/07/20 15:00 23:00 07:00 Intake Total 600 ml 240 ml Balance 600 ml 240 ml Current Medications: I have reviewed the current psychotropics carefully including drug interactions. Risk benefit ratio favors no change other than as noted in my dictated progress note. Diagnosis: Problems: (1) Bipolar 1 disorder, manic, moderate (2) Chronic obstructive pulmonary disease (COPD) (3) Impulse control disorder, unspecified (4) Anxiety disorder, unspecified TYLER NEGRO MD Jun 07, 2020 07:29
[2020-06-07] MEDS: amLODIPine BESYLATE 5 MG TABLET PO SCH (08:36)
[2020-06-07] MEDS: CARVEDILOL 6.25 MG TABLET PO SCH ×2 (08:36→20:41)
[2020-06-07] MEDS: VITAMIN B COMPLEX CAPSULE. PO SCH (08:36)
[2020-06-07] MEDS: ALBUTEROL SULFATE 8GM INHALER. INH PRN (08:36)
[2020-06-07] MEDS: CHOLECALCIFEROL (VITAMIN D3) 1,000 UNIT TABLET PO SCH (08:36)
[2020-06-07] MEDS: FLUTICASONE/VILANTEROL 200/25 INHALER. INH SCH (08:36)
--- NOTE | 2020-06-07 10:23 | NUR ---
She is compliant with her medications and assessment. Pt is calm, cooperative compliant but withdrawn to her room. no agitation, no aggression, no hallucinations or delusions noted.
--- NOTE | 2020-06-07 13:00 | NUR ---
Resumed care of patient.
[2020-06-07 15:49] VITALS: BP 147/63
[2020-06-07] MEDS: HYDROcodone/APAP 5/325MG 1 TAB TABLET PO PRN ×2 (17:19→21:50)
--- NOTE | 2020-06-07 17:23 | NUR ---
Pt out to super. C/O generalized pain. Lortab given.
[2020-06-07] MEDS: MELATONIN 3 MG TABLET PO SCH (20:41)
[2020-06-07] MEDS: MONTELUKAST 10 MG TABLET. PO SCH (20:41)
[2020-06-07] MEDS: ZIPRASIDONE 80 MG CAPSULE. PO SCH (20:41)
[2020-06-07] MEDS: ATORVASTATIN CALCIUM 20 MG TABLET PO SCH (20:41)
[2020-06-07] MEDS: DIVALPROEX ER 500 MG TAB.ER.24H PO SCH (20:42)
[2020-06-07] MEDS: DIVALPROEX ER 250 MG TAB.ER.24H. PO SCH (20:42)
[2020-06-07] MEDS: LOSARTAN 50 MG TABLET. PO SCH (20:42)
--- NOTE | 2020-06-07 22:05 | PDOC ---
Exam Note: Mik Note: Please also refer to the separate dictated note~for this date of service dictated separately.~Patient seen individually. Discussed the patient with Nursing staff reviewed the chart.~Reviewed interim history and current functioning. Reviewed vital signs,~Labs/ Radiology~and current medications noted below. Continue current treatment with the changes noted in the dictated addendum note Assessment: Vital Signs/I&O: Vital Signs Date Time Temp Pulse Resp B/P (MAP) Pulse Ox O2 Delivery O2 Flow Rate FiO2 06/07/20 21:50 96 06/07/20 20:42 63 147/63 06/07/20 15:49 98.4 18 06/07/20 05:51 2.5 06/05/20 21:00 Nasal Cannula I & O 06/06/20 06/06/20 06/07/20 15:00 23:00 07:00 Intake Total 600 ml 240 ml Balance 600 ml 240 ml Current Medications: I have reviewed the current psychotropics carefully including drug interactions. Risk benefit ratio favors no change other than as noted in my dictated progress note. Diagnosis: Problems: (1) Bipolar 1 disorder, manic, moderate (2) Chronic obstructive pulmonary disease (COPD) (3) Impulse control disorder, unspecified (4) Anxiety disorder, unspecified TYLER NEGRO MD Jun 07, 2020 22:05
--- NOTE | 2020-06-07 22:25 | NUR ---
Pt located in her room this evening. Pt pleasant and interactive. Compliant with whole medications. PRN Lortab administered with HS medications.
[2020-06-08 05:50] VITALS: BP 151/80
[2020-06-08] MEDS: FLUTICASONE/VILANTEROL 200/25 INHALER. INH SCH (08:30)
[2020-06-08] MEDS: ALBUTEROL SULFATE 8GM INHALER. INH PRN ×2 (08:31→17:20)
[2020-06-08] MEDS: VITAMIN B COMPLEX CAPSULE. PO SCH (08:32)
[2020-06-08] MEDS: CARVEDILOL 6.25 MG TABLET PO SCH ×2 (08:33→21:24)
[2020-06-08] MEDS: amLODIPine BESYLATE 5 MG TABLET PO SCH (08:35)
[2020-06-08] MEDS: CHOLECALCIFEROL (VITAMIN D3) 1,000 UNIT TABLET PO SCH (08:35)
--- NOTE | 2020-06-08 10:07 | NUR ---
Pt is calm, cooperative compliant but withdrawn to her room at times. She participate in group now more than when admitted. No agitation, no aggression, no hallucinations or delusions noted. She is compliant with her medications and assessment.
[2020-06-08] MEDS: HYDROcodone/APAP 5/325MG 1 TAB TABLET PO PRN ×3 (10:15→21:24)
--- NOTE | 2020-06-08 15:42 | NUR ---
FINN attempted to contact Rosina at [facility] and was told that she is not longer with them as of today. FINN was able to leave a message with the java front end web developer to have someone call back re: the packet FINN sent last week on pt updates and request for discharge this week.
[2020-06-08 16:19] VITALS: BP 137/75
[2020-06-08] MEDS: MONTELUKAST 10 MG TABLET. PO SCH (21:21)
[2020-06-08] MEDS: ATORVASTATIN CALCIUM 20 MG TABLET PO SCH (21:22)
[2020-06-08] MEDS: DIVALPROEX ER 500 MG TAB.ER.24H PO SCH (21:22)
[2020-06-08] MEDS: DIVALPROEX ER 250 MG TAB.ER.24H. PO SCH (21:22)
[2020-06-08] MEDS: LOSARTAN 50 MG TABLET. PO SCH (21:23)
[2020-06-08] MEDS: ZIPRASIDONE 80 MG CAPSULE. PO SCH (21:24)
[2020-06-08] MEDS: MELATONIN 3 MG TABLET PO SCH (21:25)
--- NOTE | 2020-06-08 22:05 | PDOC ---
Exam Note: Mik Note: Please also refer to the separate dictated note~for this date of service dictated separately.~Patient seen individually. Discussed the patient with Nursing staff reviewed the chart.~Reviewed interim history and current functioning. Reviewed vital signs,~Labs/ Radiology~and current medications noted below. Continue current treatment with the changes noted in the dictated addendum note Assessment: Vital Signs/I&O: Vital Signs Date Time Temp Pulse Resp B/P (MAP) Pulse Ox O2 Delivery O2 Flow Rate FiO2 06/08/20 21:24 59 137/75 06/08/20 16:19 98.1 18 97 2.0 06/05/20 21:00 Nasal Cannula I & O 0 06/07/20 06/07/20 06/08/20 15:00 23:00 07:00 Intake Total 600 ml 360 ml Balance 600 ml 360 ml Current Medications: I have reviewed the current psychotropics carefully including drug interactions. Risk benefit ratio favors no change other than as noted in my dictated progress note. Diagnosis: Problems: (1) Bipolar 1 disorder, manic, moderate (2) Chronic obstructive pulmonary disease (COPD) (3) Impulse control disorder, unspecified (4) Anxiety disorder, unspecified TYLER NEGRO MD Jun 08, 2020 22:05
--- NOTE | 2020-06-08 23:23 | NUR ---
Pt withdrawn to her room at shift change. Pt calm, pleasant, and interactive when approached. Pt inquisitive about the medications she is taking but is compliant and cooperative.
[2020-06-09 05:00] VITALS: BP 142/54
--- NOTE | 2020-06-09 09:04 | PDOC ---
Exam Note: Mik Note: This note is a late entry for 06/07/2020 covers elements not covered in my initial note. Subjective: The patient was seen individually in the evening of 06/07/2020. Per Charity WATT she slept reasonably previous night. Serum sodium slightly low. We will defer to Dr. Doran. She has been spending time reading the Bible, complains of diarrhea as I met with her. Review of Systems: Positive for shortness of breath on O2 supplements. Hard of hearing. Impaired ambulation. No CV, , eye system symptoms on review. Mental Status Exam: Reasonably oriented. As I met with her in her room she was again saluting me but much less manic than before. Speech coherent. Abstraction fair. Computation impaired. Language function intact. Attention span fair. Mood and affect less manic. No suicidal or homicidal ideation. Laboratory Data: Reviewed. Impression: Bipolar disorder manic with psychotic features, anxiety disorder unspecified, impulse control disorder unspecified. Plan: No change from initial note. Assessment: Vital Signs/I&O: Vital Signs Date Time Temp Pulse Resp B/P (MAP) Pulse Ox O2 Delivery O2 Flow Rate FiO2 06/09/20 08:29 98.4 06/08/20 22:24 97 06/08/20 21:24 59 137/75 06/08/20 16:19 18 2.0 06/05/20 21:00 Nasal Cannula I & O 06/08/20 06/08/20 06/09/20 15:00 23:00 07:00 Intake Total 240 ml 560 ml Balance 240 ml 560 ml Current Medications: I have reviewed the current psychotropics carefully including drug interactions. Risk benefit ratio favors no change other than as noted in my dictated progress note. Diagnosis: Problems: (1) Bipolar 1 disorder, manic, moderate (2) Chronic obstructive pulmonary disease (COPD) (3) Impulse control disorder, unspecified (4) Anxiety disorder, unspecified TYLER NEGRO MD Jun 09, 2020 09:04
--- NOTE | 2020-06-09 09:22 | PDOC ---
Exam Note: Mik Note: This note is a late entry for 06/08/2020 covers elements not covered in my initial note. Subjective: The patient was seen individually in the evening of 06/08/2020. Per Jeanna WATT she slept 5 hours previous night. She did well previous night and during the day today. Review of Systems: Positive for shortness of breath on O2 supplements. Hard of hearing. Impaired ambulation. No CV, , eye system symptoms on review. Mental Status Exam: Reasonably oriented. She was pleasant, verbal, less hypomanic, interactive. Speech coherent. Abstraction fair. Computation impaired. Language function intact. Attention span fair. Mood and affect improved. Laboratory Data: Reviewed. Impression: Bipolar disorder manic with psychotic features, anxiety disorder unspecified, impulse control disorder unspecified. Plan: No change from initial note. Assessment: Vital Signs/I&O: Vital Signs Date Time Temp Pulse Resp B/P (MAP) Pulse Ox O2 Delivery O2 Flow Rate FiO2 06/09/20 08:29 98.4 06/08/20 22:24 97 06/08/20 21:24 59 137/75 06/08/20 16:19 18 2.0 06/05/20 21:00 Nasal Cannula I & O 06/08/20 06/08/20 06/09/20 15:00 23:00 07:00 Intake Total 240 ml 560 ml Balance 240 ml 560 ml Current Medications: I have reviewed the current psychotropics carefully including drug interactions. Risk benefit ratio favors no change other than as noted in my dictated progress note. Diagnosis: Problems: (1) Bipolar 1 disorder, manic, moderate (2) Chronic obstructive pulmonary disease (COPD) (3) Impulse control disorder, unspecified (4) Anxiety disorder, unspecified TYLER NEGRO MD Jun 09, 2020 09:22
[2020-06-09] MEDS: FLUTICASONE/VILANTEROL 200/25 INHALER. INH SCH (09:57)
[2020-06-09] MEDS: VITAMIN B COMPLEX CAPSULE. PO SCH (09:59)
[2020-06-09] MEDS: amLODIPine BESYLATE 5 MG TABLET PO SCH (10:00)
[2020-06-09] MEDS: CHOLECALCIFEROL (VITAMIN D3) 1,000 UNIT TABLET PO SCH (10:00)
[2020-06-09] MEDS: CARVEDILOL 6.25 MG TABLET PO SCH ×2 (10:01→21:11)
[2020-06-09] MEDS: DOCUSATE SODIUM 100 MG CAPSULE PO PRN (10:05)
[2020-06-09] MEDS: ALBUTEROL SULFATE 8GM INHALER. INH PRN (10:05)
[2020-06-09] MEDS: HYDROcodone/APAP 5/325MG 1 TAB TABLET PO PRN ×3 (10:06→21:09)
[2020-06-09 15:22] VITALS: BP 132/71
--- NOTE | 2020-06-09 16:11 | NUR ---
FINN contacted pt Cary goff to inform her that there is a positive COVOID-19 test on the unit. Per the [facility] Department, there will be no admissions in and no discharges out. All staff and all residents will be tested as well. FINN will continue to send both parties updates and once the 2 week lift occurs, FINN will notify Cary that discharges are permissible and make plans at that time. Cary thanked FINN for the call and said she has not plans to tell pt. FINN notified her that staff will inform pt, she will not be happy as she was one that we were looking at discharging later this week. FINN will continue to keep Cary up to date.
--- NOTE | 2020-06-09 17:57 | NUR ---
Patient compliant with medications. PRN Lortab given at 1000 and 1445. Patient spent quite a bit of time complaining about chiropractors and her bulging disks in her lower back. Nurse asked if she had ever considered surgery, as patient consistently rates her pain 10/10 every time she is asked. Patient stated that she had a bowel movement that was hard and requested PRN Colace. PRN Colace provided for stool softening as ordered per patient request. She also stated she "cannot breath" when she was sating at 97% on 2L. Patient did not seem to be having any difficulty breathing or shortness of breath. PRN albuterol inhaler provided per order by patient request. Patient spent her time in her room reading her bible and writing in her journal.
--- NOTE | 2020-06-09 18:17 | NUR ---
Patients pending COVID 19 test has not resulted yet. Will pass on in shift report and continue to monitor.
[2020-06-09 20:24] VITALS: BP 125/64
[2020-06-09] MEDS: MONTELUKAST 10 MG TABLET. PO SCH (21:07)
[2020-06-09] MEDS: LOSARTAN 50 MG TABLET. PO SCH (21:08)
[2020-06-09] MEDS: MELATONIN 3 MG TABLET PO SCH (21:08)
[2020-06-09] MEDS: ATORVASTATIN CALCIUM 20 MG TABLET PO SCH (21:08)
[2020-06-09] MEDS: DIVALPROEX ER 250 MG TAB.ER.24H. PO SCH (21:09)
[2020-06-09] MEDS: DIVALPROEX ER 500 MG TAB.ER.24H PO SCH (21:09)
[2020-06-09] MEDS: ZIPRASIDONE 80 MG CAPSULE. PO SCH (21:10)
--- NOTE | 2020-06-09 21:59 | NUR ---
Pt withdrawn to her room at shift change. Pt calm, pleasant, and interactive when approached. Pt inquisitive about the medications she is taking but is compliant and cooperative. PRN Lortab administered with HS medications for c/o chronic back pain.
--- NOTE | 2020-06-09 22:05 | PDOC ---
Exam Note: Mik Note: Please also refer to the separate dictated note~for this date of service dictated separately.~Patient seen individually. Discussed the patient with Nursing staff reviewed the chart.~Reviewed interim history and current functioning. Reviewed vital signs,~Labs/ Radiology~and current medications noted below. Continue current treatment with the changes noted in the dictated addendum note Assessment: Vital Signs/I&O: Vital Signs Date Time Temp Pulse Resp B/P (MAP) Pulse Ox O2 Delivery O2 Flow Rate FiO2 06/09/20 21:11 60 125/64 06/09/20 21:09 95 06/09/20 20:44 98.1 2.0 06/09/20 20:24 20 Nasal Cannula I & O 06/08/20 06/08/20 06/09/20 15:00 23:00 07:00 Intake Total 240 ml 560 ml Balance 240 ml 560 ml Current Medications: I have reviewed the current psychotropics carefully including drug interactions. Risk benefit ratio favors no change other than as noted in my dictated progress note. Diagnosis: Problems: (1) Bipolar 1 disorder, manic, moderate (2) Chronic obstructive pulmonary disease (COPD) (3) Impulse control disorder, unspecified (4) Anxiety disorder, unspecified TYLER NEGRO MD Jun 09, 2020 22:05
[2020-06-10 05:57] VITALS: BP 137/64
--- NOTE | 2020-06-10 07:46 | PDOC ---
Exam Note: Mik Note: This note is a late entry for 06/09/2020 covers elements not covered in my initial note. Subjective: The patient was seen on telehealth rounds in the evening of 06/09/2020 with Saúl RN and Ida RN. COVID-19 screen has been done on all patients and staff members since one patient has turned up positive for COVID-19 on the unit today. The unit is on lockdown per the [facility] ([facility]Centers for Disease Control (CDC) due to the COVID positive patient on our unit, which was discovered. All patients are back in their rooms and are not using main dining room either to avoid group activities and exposure. Per Alana WATT, she slept 6-3/4 hours previous night. She is anxious, restless, wanting to go home, quite frustrated with the new COVID precautions on the unit. Her own COVID test is pending. Review of Systems: Hard of hearing. Impaired ambulation in wheelchair. No CV, , eye system symptoms on review. Mental Status Exam: Reasonably oriented. She was pleasant, verbal, less hypomanic, interactive. Speech coherent. Abstraction fair. Computation impaired. Language function intact. Attention span fair. Mood and affect remain sanxious. Laboratory Data: Reviewed. Impression: Bipolar disorder manic with psychotic features, anxiety disorder unspecified, impulse control disorder unspecified. Plan: No change from initial note. Assessment: Vital Signs/I&O: Vital Signs Date Time Temp Pulse Resp B/P (MAP) Pulse Ox O2 Delivery O2 Flow Rate FiO2 06/10/20 05:57 97.6 63 20 137/64 (88) 93 2.0 06/09/20 20:24 Nasal Cannula I & O 06/09/20 06/09/20 06/10/20 15:00 23:00 07:00 Intake Total 960 ml 600 ml Balance 960 ml 600 ml Current Medications: I have reviewed the current psychotropics carefully including drug interactions. Risk benefit ratio favors no change other than as noted in my dictated progress note. Diagnosis: Problems: (1) Bipolar 1 disorder, manic, moderate (2) Chronic obstructive pulmonary disease (COPD) (3) Impulse control disorder, unspecified (4) Anxiety disorder, unspecified TYLER NEGRO MD Jun 10, 2020 07:46
[2020-06-10] MEDS: ALBUTEROL SULFATE 8GM INHALER. INH PRN (08:21)
[2020-06-10] MEDS: FLUTICASONE/VILANTEROL 200/25 INHALER. INH SCH (08:21)
[2020-06-10] MEDS: VITAMIN B COMPLEX CAPSULE. PO SCH (08:22)
[2020-06-10] MEDS: CARVEDILOL 6.25 MG TABLET PO SCH ×2 (08:22→21:36)
[2020-06-10] MEDS: HYDROcodone/APAP 5/325MG 1 TAB TABLET PO PRN ×2 (08:23→21:34)
[2020-06-10] MEDS: CHOLECALCIFEROL (VITAMIN D3) 1,000 UNIT TABLET PO SCH (08:23)
[2020-06-10] MEDS: amLODIPine BESYLATE 5 MG TABLET PO SCH (08:23)
--- NOTE | 2020-06-10 08:25 | NUR ---
PRN Lortab provided per order for lower back/tail bone pain per order. patient rates pain 10/10.
--- NOTE | 2020-06-10 12:32 | NUR ---
Patient sitting in chair in her room doing pursed lip breathing. Patient is currently on 2L oxygen and sat 95%. Patient states that she does the PRN Albuterol inhaler prior to the scheduled inhaler. Provided PRN Albuterol inhaler per patient request. Patient has been withdrawn to her room. She is interactive if approached but does not come into the hallway. Patient is compliant with medications, she still wants each pill identified and wants to know her blood pressure. She is cooperative and calm, appropriate and not experiencing any manic behaviors at this time.
[2020-06-10 15:37] VITALS: BP 136/54
[2020-06-10] MEDS: DIVALPROEX ER 500 MG TAB.ER.24H PO SCH (21:33)
[2020-06-10] MEDS: DIVALPROEX ER 250 MG TAB.ER.24H. PO SCH (21:33)
[2020-06-10] MEDS: ATORVASTATIN CALCIUM 20 MG TABLET PO SCH (21:34)
[2020-06-10] MEDS: MELATONIN 3 MG TABLET PO SCH (21:34)
[2020-06-10] MEDS: ZIPRASIDONE 80 MG CAPSULE. PO SCH (21:35)
[2020-06-10] MEDS: LOSARTAN 50 MG TABLET. PO SCH (21:35)
[2020-06-10] MEDS: DOCUSATE SODIUM 100 MG CAPSULE PO PRN (21:35)
[2020-06-10] MEDS: MONTELUKAST 10 MG TABLET. PO SCH (21:35)
--- NOTE | 2020-06-10 22:09 | PDOC ---
Exam Note: Mik Note: Please also refer to the separate dictated note~for this date of service dictated separately.~Patient seen individually. Discussed the patient with Nursing staff reviewed the chart.~Reviewed interim history and current functioning. Reviewed vital signs,~Labs/ Radiology~and current medications noted below. Continue current treatment with the changes noted in the dictated addendum note Assessment: Vital Signs/I&O: Vital Signs Date Time Temp Pulse Resp B/P (MAP) Pulse Ox O2 Delivery O2 Flow Rate FiO2 06/10/20 21:36 58 136/54 06/10/20 21:34 95 06/10/20 19:06 98.4 06/10/20 15:37 18 3.0 06/09/20 20:24 Nasal Cannula I & O 06/09/20 06/09/20 06/10/20 15:00 23:00 07:00 Intake Total 960 ml 600 ml Balance 960 ml 600 ml Current Medications: I have reviewed the current psychotropics carefully including drug interactions. Risk benefit ratio favors no change other than as noted in my dictated progress note. Diagnosis: Problems: (1) Bipolar 1 disorder, manic, moderate (2) Chronic obstructive pulmonary disease (COPD) (3) Impulse control disorder, unspecified (4) Anxiety disorder, unspecified TYLER NEGRO MD Jun 10, 2020 22:09
--- NOTE | 2020-06-11 02:13 | NUR ---
Nursing Note Pt Up in her room agreeable to most meds. Pics out a few that are not that important. Sort of exhibits splitting behavior, states "I was brought to tears tonight by your gestures of kindness and compassion. No one else treats me like that. I bless you and hope god smiles on you!" Told patient that was just my job but thanks.
[2020-06-11 06:28] VITALS: BP 135/59
[2020-06-11] MEDS: CHOLECALCIFEROL (VITAMIN D3) 1,000 UNIT TABLET PO SCH (09:00)
--- NOTE | 2020-06-11 09:33 | NUR ---
COVID 19 test from 06/08 resulted. Patient is negative at this time.
[2020-06-11] MEDS: FLUTICASONE/VILANTEROL 200/25 INHALER. INH SCH (09:43)
[2020-06-11] MEDS: ALBUTEROL SULFATE 8GM INHALER. INH PRN ×2 (09:43→19:50)
[2020-06-11] MEDS: CARVEDILOL 6.25 MG TABLET PO SCH ×4 (09:44→19:50)
[2020-06-11] MEDS: amLODIPine BESYLATE 5 MG TABLET PO SCH (09:44)
[2020-06-11] MEDS: VITAMIN B COMPLEX CAPSULE. PO SCH (09:44)
[2020-06-11] MEDS: HYDROcodone/APAP 5/325MG 1 TAB TABLET PO PRN ×3 (09:46→19:50)
[2020-06-11 10:04] VITALS: BP 173/77
--- NOTE | 2020-06-11 10:06 | NUR ---
Patient refused coreg stating that it will "make her hair fall out". She stated that a family doctor had told her this once. Nurse provided education to patient regarding her risks of refusing blood pressure medications and her current blood pressure is 173/77 pulse 81 oxygen 93% on 2L. Patient continued to refuse medication. Patient was compliant with all other medications, taken whole with water. Patient requested PRN lortab for pain (rated 10/10) and PRN Albuterol for wheezing/coughing. Both provided per order. Patient purposely coughing forcefully after using inhaler. Patient inquired what her COVID 19 test showed, nurse advised her that it came back negative.
--- NOTE | 2020-06-11 12:26 | NUR ---
FINN contacted pt dtr, Cary to inform her of pt Covoid test, which has come back as negative. FINN informed pt dtr that at this time, the unit will continue to remain in quarantine and will look at discharging pts towards the last week of May. In the event that anything changes, FINN will make sure to update Cary. Both parties discussed how pt is taking the news, as pt told the psychiatrist, that she is okay with staying for a couple weeks. She likes it here. Pt dtr believes that as she has observed over the phone that pt is less manic and sounds better than she was upon arrival.
[2020-06-11 16:41] VITALS: BP 134/63
--- NOTE | 2020-06-11 18:58 | NUR ---
PRN lortab provided at 1445 per patient request. She reported 10/10 pain. Patient resting in room with lights off most of the day.
[2020-06-11] MEDS: ZIPRASIDONE 80 MG CAPSULE. PO SCH (19:49)
[2020-06-11] MEDS: DIVALPROEX ER 500 MG TAB.ER.24H PO SCH (19:49)
[2020-06-11] MEDS: ATORVASTATIN CALCIUM 20 MG TABLET PO SCH (19:49)
[2020-06-11] MEDS: DIVALPROEX ER 250 MG TAB.ER.24H. PO SCH (19:49)
[2020-06-11] MEDS: MONTELUKAST 10 MG TABLET. PO SCH (19:49)
[2020-06-11] MEDS: LOSARTAN 50 MG TABLET. PO SCH (19:50)
[2020-06-11] MEDS: MELATONIN 3 MG TABLET PO SCH (19:50)
--- NOTE | 2020-06-11 22:02 | PDOC ---
Exam Note: Mik Note: This note is a late entry for 06/10/2020 covers elements not covered in my initial note. Subjective: The patient was seen on telehealth rounds in the evening of 06/10/2020 with nursing staff. The unit is on lockdown due to the COVID positive patient on our unit, which was discovered. Each patient is in their room, not able to come out to the dining room or to interact with others according to the recommendation by the [facility]. Per Alana WATT, she slept 6-3/4 hours previous night. She has been pleasant. She has chronic back pain and wants her pain medications exactly every 2 hours. She remains somewhat short of breath on O2 supplements and spends much time in her room, isolative, sleeps but she has been less arguing and demanding regarding her medications. Several patients on the unit have turned up COVID positive but the patients result is pending. She has been informed that the department of [facility] has again suspended any admission and discharges to the unit and she has to be here for 2 weeks and it appears almost that she makes the above statements as a way to accept something for which she really was not happy initially but now able to accept from her side. We processed this. Review of Systems: Hard of hearing. Impaired ambulation in wheelchair. No CV, , eye system symptoms on review. Mental Status Exam: Reasonably oriented. She was quite verbal, interactive individually talking about wanting to stay here for an extended period of time. Speech coherent less pressured. Abstraction fair. Computation impaired. Language function intact. Attention span fair. Mood and affect are animated. No psychotic symptoms suicidal or homicidal ideation. Laboratory Data: Reviewed. Impression: Bipolar disorder manic with psychotic features, anxiety disorder unspecified, impulse control disorder unspecified. Plan: Continue the patient on her current psychotropics, melatonin 10.5 mg h.s., Geodon 80 mg h.s., Ativan p.r.n., Depakote ER 1250 mg h.s. Valproic acid level therapeutic at 66. Repeat labs on 06/12. Assessment: Vital Signs/I&O: Vital Signs Date Time Temp Pulse Resp B/P (MAP) Pulse Ox O2 Delivery O2 Flow Rate FiO2 06/11/20 19:50 63 134/63 06/11/20 19:50 94 06/11/20 18:20 98.2 06/11/20 16:41 20 3.0 06/11/20 10:04 Nasal Cannula I & O 06/10/20 06/10/20 06/11/20 15:00 23:00 07:00 Intake Total 720 ml 200 ml Balance 720 ml 200 ml Current Medications: I have reviewed the current psychotropics carefully including drug interactions. Risk benefit ratio favors no change other than as noted in my dictated progress note. Diagnosis: Problems: (1) Bipolar 1 disorder, manic, moderate (2) Chronic obstructive pulmonary disease (COPD) (3) Impulse control disorder, unspecified (4) Anxiety disorder, unspecified TYLER NEGRO MD Jun 11, 2020 22:02
--- NOTE | 2020-06-11 22:06 | PDOC ---
Exam Note: Mik Note: Please also refer to the separate dictated note~for this date of service dictated separately.~Patient seen individually. Discussed the patient with Nursing staff reviewed the chart.~Reviewed interim history and current functioning. Reviewed vital signs,~Labs/ Radiology~and current medications noted below. Continue current treatment with the changes noted in the dictated addendum note Assessment: Vital Signs/I&O: Vital Signs Date Time Temp Pulse Resp B/P (MAP) Pulse Ox O2 Delivery O2 Flow Rate FiO2 06/11/20 19:50 63 134/63 06/11/20 19:50 94 06/11/20 18:20 98.2 06/11/20 16:41 20 3.0 06/11/20 10:04 Nasal Cannula I & O 06/10/20 06/10/20 06/11/20 15:00 23:00 07:00 Intake Total 720 ml 200 ml Balance 720 ml 200 ml Current Medications: I have reviewed the current psychotropics carefully including drug interactions. Risk benefit ratio favors no change other than as noted in my dictated progress note. Diagnosis: Problems: (1) Bipolar 1 disorder, manic, moderate (2) Chronic obstructive pulmonary disease (COPD) (3) Impulse control disorder, unspecified (4) Anxiety disorder, unspecified TYLER NEGRO MD Jun 11, 2020 22:06
--- NOTE | 2020-06-11 23:30 | PDOC ---
Exam Note: Mik Note: This note covers elements not covered in my initial note. Subjective: The patient was evaluated via telehealth rounds in the morning of 06/11/2020 for the treatment team meeting with Tacho (social service staff), and eJanna WATT. Appetite is 75%. Sleeping average 6 hours. The patient was seen on telehealth rounds in the evening of 06/11/2020 with Alana WATT. She has been somewhat withdrawn to her room, refused Coreg because she was told this can cause hair loss. She is COVID negative. The patient spent much of the day in her room, frequently wanting her pain medications. She does have back pain. Review of Systems: Impaired ambulation. Shortness of breath. No CV, , eye system symptoms on review. Mental Status Exam: She is typically oriented, less anxious. Attention span fair. She is quite animated at times. No clear suicidal or homicidal ideation. Laboratory Data: Reviewed. Impression: Bipolar disorder manic with psychotic features, anxiety disorder unspecified, impulse control disorder unspecified. Plan: No change from initial note. Assessment: Vital Signs/I&O: Vital Signs Date Time Temp Pulse Resp B/P (MAP) Pulse Ox O2 Delivery O2 Flow Rate FiO2 06/11/20 23:22 98.0 97 2.0 06/11/20 19:50 63 134/63 06/11/20 16:41 20 06/11/20 10:04 Nasal Cannula I & O 06/10/20 06/10/20 06/11/20 15:00 23:00 07:00 Intake Total 720 ml 200 ml Balance 720 ml 200 ml Current Medications: I have reviewed the current psychotropics carefully including drug interactions. Risk benefit ratio favors no change other than as noted in my dictated progress note. Diagnosis: Problems: (1) Bipolar 1 disorder, manic, moderate (2) Chronic obstructive pulmonary disease (COPD) (3) Impulse control disorder, unspecified (4) Anxiety disorder, unspecified TYLER NEGRO MD Jun 11, 2020 23:30
--- NOTE | 2020-06-12 00:09 | NUR ---
Nursing Note Pt pleasant calm and cooperative. Lortab given for pain.
[2020-06-12] MEDS: HYDROcodone/APAP 5/325MG 1 TAB TABLET PO PRN ×5 (01:51→21:03)
[2020-06-12 06:23] LABS: BASO % 1 % (0-3); EOS # 0.1 x10^3/uL (0.0-0.7); EOS % 2 % (0-3); HEMATOCRIT 35.8 % (36.0-47.0); HEMOGLOBIN 11.7 g/dL (12.0-15.5); LYMPH # 0.8 x10^3/uL (1.0-4.8); LYMPH % 19 % (24-48); MEAN CORPUSCULAR HEMOGLOBIN 29 pg (25-35); MEAN CORPUSCULAR HGB CONC 33 g/dL (31-37); MEAN CORPUSCULAR VOLUME 88 fL (79-100); MONO # 0.8 x10^3/uL (0.0-1.1); MONO % 20 % (0-9); NEUT # 2.4 x10^3uL (1.8-7.7); NEUT % 59 % (31-73); PLATELET COUNT 223 x10^3/uL (140-400); RED BLOOD COUNT 4.05 x10^6/uL (3.50-5.40); WHITE BLOOD COUNT 4.1 x10^3/uL (4.0-11.0)
[2020-06-12 06:31] VITALS: BP 133/62
[2020-06-12 06:37] LABS: ALBUMIN 2.7 g/dL (3.4-5.0); ALBUMIN/GLOBULIN RATIO 0.8 (1.0-1.7); CALCIUM 8.7 mg/dL (8.5-10.1); CREATININE 0.7 mg/dL (0.6-1.0); GFR 82.7; POTASSIUM 4.2 mmol/L (3.5-5.1); TOTAL BILIRUBIN 0.2 mg/dL (0.2-1.0)
[2020-06-12] MEDS: amLODIPine BESYLATE 5 MG TABLET PO SCH (08:03)
[2020-06-12] MEDS: CHOLECALCIFEROL (VITAMIN D3) 1,000 UNIT TABLET PO SCH (08:03)
[2020-06-12] MEDS: CARVEDILOL 6.25 MG TABLET PO SCH ×2 (08:03→08:36)
[2020-06-12] MEDS: VITAMIN B COMPLEX CAPSULE. PO SCH (08:03)
[2020-06-12] MEDS: FLUTICASONE/VILANTEROL 200/25 INHALER. INH SCH (08:04)
[2020-06-12] MEDS: ALBUTEROL SULFATE 8GM INHALER. INH PRN ×4 (08:35→20:25)
--- NOTE | 2020-06-12 10:47 | TX PLAN ---
Interdisciplinary Tx Plan Admission Information May 18, 2020 at 20:25 Legal Status (on Admission): Voluntary DPOA/Guardian Name: Cary Washington Contact Other Contact Name: Matty Gonzales Other Contact Verified Code Status: Full Code Allergies: Coded Allergies: No Known Drug Allergies (Unverified , 05/18/20) Diagnoses Primary Diagnosis: Bipolar D/O, depressed with psychotic features, Cognitive D/O, rule out Dementia Reasons for Admission: Agitated, Sig. Change Sleep, Suspicious/paranoid, Poor impulse control, Other Problem in Patient's Words: Her manic episodes have been increasing and are not properly managed Additional Admission Comments: According to the intake, she refuses medications at times, non-compliant with fluid restrictions, defiant, oppositional, guarded, paranoid, insomnia, calling her NURSING HOME at night, uncooperative, agitated, delusional and manic, dismisses staff, restless and fidgety. Problems Active Problems: resitive to medications manic non-compliance with fluid restriction Inactive Problems: None at this moment Pt Strengths/Limitations Ability for [place]: Poor Cognitive Functioning/Ability: Poor Communication Skills/Ability: Fair Financial Resources: Fair Insight/Judgement: Poor Intellectual Ability: Fair Physical Health: Poor Social Skills: Fair Stability in Family: Fair Stability in School/Work: Poor Verbal Skills: Fair Discharge Criteria Discharge Criteria: Able meet basic life need, No need for close observ., Adequate arrangements @DC, Improved behavior, Improved mood/thought Preliminary Discharge Plan Preliminary DC Plan: Assisted Living Special Precautions Fall Risk: Low Initial D/C Plan Pt at this time will plan to discharge back to [facility] ([place], [place]) once stable. Identified Discharge Needs: Psychiatric services Currently Utilized Resources Currently Utilized Resources/P: Primary Care Physician Psychiatric consultation Referrals Community Resources: Mental health services Identified Problems/Hx/Goals Objectives/Short-Term Goals Short Term Goals: Control abnormal behavior, Medication Stabilization, Promote Coping Skill Short Term Goals in Patient's: "I'm leaving here tonight" Interventions/Frequency Staff Interventions/Frequency&: Psychiatrist to assess pt at least 3x per week. Social Work to asses pt at least 2x per week. Nursing to assess medications, behaviors and complete 15 minute checks daily. Encourage group participation in activities or 1:1 engagement based of the activity dept. assessment. 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 Education: Did graduate high from [employer] Community Follow-up PCP mental health services Community Provider/Family Inpu: She has lived a very tumultuous life. The last 15 years have been her best and we'd like to make sure she can maintain longer at her current residence with [facility] ([place], [place]). Treatment Plan Explained Patient/Product Design Manager had this treatment plan explained to him/her as indicated by the signature below and has been given the opportunity to ask questions and make suggestions: Date: Patient/Product Design Manager Signature: Status Update Update Pt is eating roughly 75% of meals and sleeping on average 6 hours on average. Pt is withdrawn to her room but does attend some groups throughout the week. Pt is more cooperative and mostly medication compliant. Pt does not wish to take her Coreg as she feels that it makes her hair fallout. Pt appears to be less manic and will be able to discharge back to [facility] ([place], [place]). Pt was Covoid tested and her results are negative. SAQIB YUEN Jun 12, 2020 10:47
[2020-06-12 15:19] VITALS: BP 130/76
--- NOTE | 2020-06-12 16:31 | NUR ---
Pt up in room for meals. Lortab given x3 for generalized pain. Refused coreg in am. Will notify DRMatti Has been compliant with cares.
[2020-06-12] MEDS: LOSARTAN 50 MG TABLET. PO SCH (20:24)
[2020-06-12] MEDS: DIVALPROEX ER 250 MG TAB.ER.24H. PO SCH (20:24)
[2020-06-12] MEDS: DIVALPROEX ER 500 MG TAB.ER.24H PO SCH (20:24)
[2020-06-12] MEDS: MONTELUKAST 10 MG TABLET. PO SCH (20:25)
[2020-06-12] MEDS: ZIPRASIDONE 80 MG CAPSULE. PO SCH (20:25)
[2020-06-12] MEDS: DOCUSATE SODIUM 100 MG CAPSULE PO PRN (20:25)
[2020-06-12] MEDS: MELATONIN 3 MG TABLET PO SCH (20:25)
--- NOTE | 2020-06-12 21:59 | PDOC ---
Exam Note: Mik Note: Please also refer to the separate dictated note~for this date of service dictated separately.~Patient seen individually. Discussed the patient with Nursing staff reviewed the chart.~Reviewed interim history and current functioning. Reviewed vital signs,~Labs/ Radiology~and current medications noted below. Continue current treatment with the changes noted in the dictated addendum note Assessment: Vital Signs/I&O: Vital Signs Date Time Temp Pulse Resp B/P (MAP) Pulse Ox O2 Delivery O2 Flow Rate FiO2 06/12/20 21:03 97 06/12/20 20:24 78 130/76 06/12/20 20:16 98.0 2.5 06/12/20 17:49 Nasal Cannula 06/12/20 15:19 16 I & O 06/11/20 06/11/20 06/12/20 15:00 23:00 07:00 Intake Total 960 ml 480 ml Balance 960 ml 480 ml Labs: Laboratory Tests Test 06/12/20 06:10 White Blood Count 4.1 x10^3/uL (4.0-11.0) Red Blood Count 4.05 x10^6/uL (3.50-5.40) Hemoglobin 11.7 g/dL (12.0-15.5) L Hematocrit 35.8 % (36.0-47.0) L Mean Corpuscular Volume 88 fL (79-100) Mean Corpuscular Hemoglobin 29 pg (25-35) Mean Corpuscular Hemoglobin Concent 33 g/dL (31-37) Red Cell Distribution Width 14.0 % (11.5-14.5) Platelet Count 223 x10^3/uL (140-400) Neutrophils (%) (Auto) 59 % (31-73) Lymphocytes (%) (Auto) 19 % (24-48) L Monocytes (%) (Auto) 20 % (0-9) H Eosinophils (%) (Auto) 2 % (0-3) Basophils (%) (Auto) 1 % (0-3) Neutrophils # (Auto) 2.4 x10^3uL (1.8-7.7) Lymphocytes # (Auto) 0.8 x10^3/uL (1.0-4.8) L Monocytes # (Auto) 0.8 x10^3/uL (0.0-1.1) Eosinophils # (Auto) 0.1 x10^3/uL (0.0-0.7) Basophils # (Auto) 0.0 x10^3/uL (0.0-0.2) Sodium Level 139 mmol/L (136-145) Potassium Level 4.2 mmol/L (3.5-5.1) Chloride Level 102 mmol/L (98-107) Carbon Dioxide Level 35 mmol/L (21-32) H Anion Gap 2 (6-14) L Blood Urea Nitrogen 9 mg/dL (7-20) Creatinine 0.7 mg/dL (0.6-1.0) Estimated GFR (Cockcroft-Gault) 82.7 BUN/Creatinine Ratio 13 (6-20) Glucose Level 92 mg/dL (70-99) Calcium Level 8.7 mg/dL (8.5-10.1) Total Bilirubin 0.2 mg/dL (0.2-1.0) Aspartate Amino Transferase (AST) 19 U/L (15-37) Alanine Aminotransferase (ALT) 26 U/L (14-59) Alkaline Phosphatase 61 U/L (46-116) Total Protein 6.0 g/dL (6.4-8.2) L Albumin 2.7 g/dL (3.4-5.0) L Albumin/Globulin Ratio 0.8 (1.0-1.7) L Current Medications: I have reviewed the current psychotropics carefully including drug interactions. Risk benefit ratio favors no change other than as noted in my dictated progress note. Diagnosis: Problems: (1) Bipolar 1 disorder, manic, moderate (2) Chronic obstructive pulmonary disease (COPD) (3) Impulse control disorder, unspecified (4) Anxiety disorder, unspecified TYLER NEGRO MD Jun 12, 2020 21:59
--- NOTE | 2020-06-12 23:14 | NUR ---
Pt located in her room this evening. When approached, pt automatically stated that she would like her pain medication brought to her every 4 hours on the dot. Pt informed that it is a PRN medication and will be given only when she requests it. I will not be waking her up to give her the medication. Compliant with HS medication. Happy that her Lipitor and Coreg had been d/c'd. PRN Lortab and Albuterol administered per pt request.
[2020-06-13] MEDS: HYDROcodone/APAP 5/325MG 1 TAB TABLET PO PRN ×4 (02:51→20:38)
[2020-06-13 06:33] VITALS: BP 128/76
[2020-06-13] MEDS: CHOLECALCIFEROL (VITAMIN D3) 1,000 UNIT TABLET PO SCH (08:31)
[2020-06-13] MEDS: VITAMIN B COMPLEX CAPSULE. PO SCH (08:31)
[2020-06-13] MEDS: amLODIPine BESYLATE 5 MG TABLET PO SCH (08:31)
[2020-06-13] MEDS: FLUTICASONE/VILANTEROL 200/25 INHALER. INH SCH (08:31)
[2020-06-13] MEDS: ALBUTEROL SULFATE 8GM INHALER. INH PRN ×2 (08:31→20:37)
[2020-06-13] MEDS: cloNIDine TTS-3 1 PATCH PATCH TD SCH (08:32)
--- NOTE | 2020-06-13 10:08 | NUR ---
Pt is calm, cooperative compliant. No agitation, no aggression, no hallucinations or delusions noted. She attempted to refuse her blood pressure medications after nurse educated pt on importance of medication, pt took her medication. Pt is compliant with her assessment.
[2020-06-13 16:05] VITALS: BP 130/74
--- NOTE | 2020-06-13 16:44 | NUR ---
Pt is currently in her room listening to the NEWS on the [employer] fire.
[2020-06-13] MEDS: DIVALPROEX ER 500 MG TAB.ER.24H PO SCH (20:36)
[2020-06-13] MEDS: DIVALPROEX ER 250 MG TAB.ER.24H. PO SCH (20:36)
[2020-06-13] MEDS: ZIPRASIDONE 80 MG CAPSULE. PO SCH (20:36)
[2020-06-13] MEDS: LOSARTAN 50 MG TABLET. PO SCH (20:36)
[2020-06-13] MEDS: MONTELUKAST 10 MG TABLET. PO SCH (20:36)
[2020-06-13] MEDS: MELATONIN 3 MG TABLET PO SCH (20:37)
--- NOTE | 2020-06-13 21:58 | PDOC ---
Exam Note: Mik Note: Please also refer to the separate dictated note~for this date of service dictated separately.~Patient seen individually. Discussed the patient with Nursing staff reviewed the chart.~Reviewed interim history and current functioning. Reviewed vital signs,~Labs/ Radiology~and current medications noted below. Continue current treatment with the changes noted in the dictated addendum note Assessment: Vital Signs/I&O: Vital Signs Date Time Temp Pulse Resp B/P (MAP) Pulse Ox O2 Delivery O2 Flow Rate FiO2 06/13/20 21:55 95 06/13/20 20:39 98.5 Nasal Cannula 2.0 06/13/20 20:36 77 130/74 06/13/20 16:05 24 I & O 06/12/20 06/12/20 06/13/20 15:00 23:00 07:00 Intake Total 700 ml 320 ml Balance 700 ml 320 ml Current Medications: I have reviewed the current psychotropics carefully including drug interactions. Risk benefit ratio favors no change other than as noted in my dictated progress note. Diagnosis: Problems: (1) Bipolar 1 disorder, manic, moderate (2) Chronic obstructive pulmonary disease (COPD) (3) Impulse control disorder, unspecified (4) Anxiety disorder, unspecified TYLER NEGRO MD Jun 13, 2020 21:58
--- NOTE | 2020-06-13 22:58 | NUR ---
Pt located in her room this evening. Pleasant and interactive. Compliant with HS medications and assessment. PRN Lortab administered per pt request.
[2020-06-14] MEDS: HYDROcodone/APAP 5/325MG 1 TAB TABLET PO PRN ×5 (02:19→22:03)
[2020-06-14 06:32] VITALS: BP 123/63
--- NOTE | 2020-06-14 06:52 | PDOC ---
Exam Note: Mik Note: This note is a late entry for 06/12/2020 covers elements not covered in my initial note. Subjective: The patient was evaluated on telehealth rounds in the evening of 06/12/2020 with Deandre WATT taking the camera around. Per Charity WATT, she slept 6-1/4 hours previous night. She refused to have Coreg because she believes it makes her hair fall out otherwise, animated, verbal. I met with her in her room audiovisually. Review of Systems: Impaired ambulation with walker. Shortness of breath on O2 supplements. No CV, , eye system symptoms on review. Mental Status Exam: She is reasonably oriented. She is quite verbal, interactive, appropriate, saluting me, has a sense of humor. Attention span fair. No clear suicidal or homicidal ideation. Laboratory Data: Reviewed. Impression: Bipolar disorder manic with psychotic features, anxiety disorder unspecified, impulse control disorder unspecified. Plan: No change from initial note. Assessment: Vital Signs/I&O: Vital Signs Date Time Temp Pulse Resp B/P (MAP) Pulse Ox O2 Delivery O2 Flow Rate FiO2 06/14/20 06:32 97.7 62 18 123/63 (83) 97 Nasal Cannula 2.0 I & O 06/13/20 06/13/20 06/14/20 15:00 23:00 07:00 Intake Total 480 ml 120 ml Balance 480 ml 120 ml Current Medications: I have reviewed the current psychotropics carefully including drug interactions. Risk benefit ratio favors no change other than as noted in my dictated progress note. Diagnosis: Problems: (1) Bipolar 1 disorder, manic, moderate (2) Chronic obstructive pulmonary disease (COPD) (3) Impulse control disorder, unspecified (4) Anxiety disorder, unspecified TYLER NEGRO MD Jun 14, 2020 06:52
--- NOTE | 2020-06-14 07:04 | PDOC ---
Exam Note: Mik Note: This note is a late entry for 06/13/2020 covers elements not covered in my initial note. Subjective: The patient was evaluated on telehealth rounds in the evening of 06/13/2020 with Jeanna WATT taking the camera around. Per Jeanna RN, she slept 7-1/4 hours previous night. She is very particular about getting her pain meds right on the dot and has been on Clonidine patch. Review of Systems: Impaired ambulation with walker. Shortness of breath on O2 supplements. No CV, , eye system symptoms on review. Mental Status Exam: Oriented reasonably. She is quite verbal, interactive, saluting me. Abstraction is fair. Computation impaired. Language function intact. No clear suicidal or homicidal ideation. Laboratory Data: Reviewed. Impression: Bipolar disorder manic with psychotic features, anxiety disorder unspecified, impulse control disorder unspecified. Plan: No change from initial note. Assessment: Vital Signs/I&O: Vital Signs Date Time Temp Pulse Resp B/P (MAP) Pulse Ox O2 Delivery O2 Flow Rate FiO2 06/14/20 06:32 97.7 62 18 123/63 (83) 97 Nasal Cannula 2.0 I & O 06/13/20 06/13/20 06/14/20 15:00 23:00 07:00 Intake Total 480 ml 120 ml Balance 480 ml 120 ml Current Medications: I have reviewed the current psychotropics carefully including drug interactions. Risk benefit ratio favors no change other than as noted in my dictated progress note. Diagnosis: Problems: (1) Bipolar 1 disorder, manic, moderate (2) Chronic obstructive pulmonary disease (COPD) (3) Impulse control disorder, unspecified (4) Anxiety disorder, unspecified TYLER NEGRO MD Jun 14, 2020 07:04
[2020-06-14] MEDS: ALBUTEROL SULFATE 8GM INHALER. INH PRN ×2 (08:15→20:30)
[2020-06-14] MEDS: FLUTICASONE/VILANTEROL 200/25 INHALER. INH SCH (08:15)
[2020-06-14] MEDS: amLODIPine BESYLATE 5 MG TABLET PO SCH (08:16)
[2020-06-14] MEDS: CHOLECALCIFEROL (VITAMIN D3) 1,000 UNIT TABLET PO SCH (08:16)
[2020-06-14] MEDS: VITAMIN B COMPLEX CAPSULE. PO SCH (08:16)
--- NOTE | 2020-06-14 09:03 | NUR ---
Pt is calm, cooperative compliant. No agitation, no aggression, no hallucinations or delusions noted. She is compliant with her medication. Pt is compliant with her assessment.
[2020-06-14 16:27] VITALS: BP 148/78
[2020-06-14] MEDS: ZIPRASIDONE 80 MG CAPSULE. PO SCH (20:29)
[2020-06-14] MEDS: DIVALPROEX ER 250 MG TAB.ER.24H. PO SCH (20:29)
[2020-06-14] MEDS: MELATONIN 3 MG TABLET PO SCH (20:30)
[2020-06-14] MEDS: MONTELUKAST 10 MG TABLET. PO SCH (20:30)
[2020-06-14] MEDS: LOSARTAN 50 MG TABLET. PO SCH (20:30)
[2020-06-14] MEDS: DIVALPROEX ER 500 MG TAB.ER.24H PO SCH (20:30)
--- NOTE | 2020-06-14 21:56 | PDOC ---
Exam Note: Mik Note: Please also refer to the separate dictated note~for this date of service dictated separately.~Patient seen individually. Discussed the patient with Nursing staff reviewed the chart.~Reviewed interim history and current functioning. Reviewed vital signs,~Labs/ Radiology~and current medications noted below. Continue current treatment with the changes noted in the dictated addendum note Assessment: Vital Signs/I&O: Vital Signs Date Time Temp Pulse Resp B/P (MAP) Pulse Ox O2 Delivery O2 Flow Rate FiO2 06/14/20 21:36 98.7 97 2.0 06/14/20 20:30 66 148/78 06/14/20 17:56 20 06/14/20 06:32 Nasal Cannula I & O 06/13/20 06/13/20 06/14/20 15:00 23:00 07:00 Intake Total 480 ml 120 ml Balance 480 ml 120 ml Current Medications: I have reviewed the current psychotropics carefully including drug interactions. Risk benefit ratio favors no change other than as noted in my dictated progress note. Diagnosis: Problems: (1) Shortness of breath (2) Bipolar 1 disorder, manic, moderate (3) Chronic obstructive pulmonary disease (COPD) (4) Impulse control disorder, unspecified (5) Anxiety disorder, unspecified TYLER NEGRO MD Jun 14, 2020 21:56
--- NOTE | 2020-06-14 22:22 | NUR ---
Pt calm and pleasant this evening. Compliant with whole medications and assessment. PRN Lortab administered per pt request.
--- NOTE | 2020-06-14 23:07 | PDOC ---
Exam Note: Mik Note: This note is for 06/14/2020 covers elements not covered in my initial note. Subjective: The patient was evaluated on telehealth rounds in the evening of 06/14/2020 with Jeanna WATT taking the camera around. Per Jeanna RN, she slept 7-1/2 hours previous night. She had a good night and good day. She remains is olative, spends much time in her room and she was listening to the [facility] on [employer], quite animated about this. Review of Systems: Impaired ambulation with walker. No CV, , eye system symptoms on review. Mental Status Exam: Oriented reasonably. She remains isolative, quite interactive. Abstraction is fair. Computation impaired. Language function intact. No clear suicidal or homicidal ideation. Laboratory Data: Reviewed. Impression: Bipolar disorder manic with psychotic features, anxiety disorder unspecified, impulse control disorder unspecified. Plan: No change from initial note. Assessment: Vital Signs/I&O: Vital Signs Date Time Temp Pulse Resp B/P (MAP) Pulse Ox O2 Delivery O2 Flow Rate FiO2 06/14/20 22:03 97 06/14/20 21:36 98.7 2.0 06/14/20 20:30 66 148/78 06/14/20 17:56 20 06/14/20 06:32 Nasal Cannula I & O 06/13/20 06/13/20 06/14/20 15:00 23:00 07:00 Intake Total 480 ml 120 ml Balance 480 ml 120 ml Current Medications: I have reviewed the current psychotropics carefully including drug interactions. Risk benefit ratio favors no change other than as noted in my dictated progress note. Diagnosis: Problems: (1) Bipolar 1 disorder, manic, moderate (2) Impulse control disorder, unspecified (3) Anxiety disorder, unspecified (4) Shortness of breath TYLER NEGRO MD Jun 14, 2020 23:07
[2020-06-15] MEDS: HYDROcodone/APAP 5/325MG 1 TAB TABLET PO PRN ×4 (05:19→22:33)
[2020-06-15 05:49] VITALS: BP 111/84
[2020-06-15] MEDS: ALBUTEROL SULFATE 8GM INHALER. INH PRN ×2 (08:47→19:45)
[2020-06-15] MEDS: amLODIPine BESYLATE 5 MG TABLET PO SCH (08:47)
[2020-06-15] MEDS: VITAMIN B COMPLEX CAPSULE. PO SCH (08:47)
[2020-06-15] MEDS: FLUTICASONE/VILANTEROL 200/25 INHALER. INH SCH (08:47)
[2020-06-15] MEDS: CHOLECALCIFEROL (VITAMIN D3) 1,000 UNIT TABLET PO SCH (08:48)
--- NOTE | 2020-06-15 11:08 | NUR ---
She is compliant with her medication. Pt is compliant with her assessment. Pt is calm, cooperative compliant. No agitation, no aggression, no hallucinations or delusions noted.
[2020-06-15 16:26] VITALS: BP 143/76
--- NOTE | 2020-06-15 18:52 | NUR ---
Pt c/o "sore throat" and "right tonsil pain" Pt had fluctuating temp today. New order to swab pt for COVID-19
[2020-06-15] MEDS: MONTELUKAST 10 MG TABLET. PO SCH (19:46)
[2020-06-15] MEDS: DIVALPROEX ER 250 MG TAB.ER.24H. PO SCH (19:46)
[2020-06-15] MEDS: ZIPRASIDONE 80 MG CAPSULE. PO SCH (19:46)
[2020-06-15] MEDS: LOSARTAN 50 MG TABLET. PO SCH (19:46)
[2020-06-15] MEDS: MELATONIN 3 MG TABLET PO SCH (19:46)
[2020-06-15] MEDS: DIVALPROEX ER 500 MG TAB.ER.24H PO SCH (19:47)
--- NOTE | 2020-06-15 22:10 | PDOC ---
Exam Note: Mik Note: Please also refer to the separate dictated note~for this date of service dictated separately.~Patient seen individually. Discussed the patient with Nursing staff reviewed the chart.~Reviewed interim history and current functioning. Reviewed vital signs,~Labs/ Radiology~and current medications noted below. Continue current treatment with the changes noted in the dictated addendum note Assessment: Vital Signs/I&O: Vital Signs Date Time Temp Pulse Resp B/P (MAP) Pulse Ox O2 Delivery O2 Flow Rate FiO2 06/15/20 21:00 98.3 92 2.0 06/15/20 19:46 73 143/76 06/15/20 18:20 20 06/15/20 16:26 Nasal Cannula I & O 06/14/20 06/14/20 06/15/20 14:59 22:59 06:59 Intake Total 480 ml 600 ml Balance 480 ml 600 ml Current Medications: I have reviewed the current psychotropics carefully including drug interactions. Risk benefit ratio favors no change other than as noted in my dictated progress note. Diagnosis: Problems: (1) Bipolar 1 disorder, manic, moderate (2) Impulse control disorder, unspecified (3) Anxiety disorder, unspecified (4) Shortness of breath TYLER NEGRO MD Jun 15, 2020 22:10
--- NOTE | 2020-06-16 04:13 | NUR ---
Pt took HS meds without difficulty. Voices no c/o. Has rested quietly this evening.
[2020-06-16 06:10] VITALS: BP 157/84
[2020-06-16 06:48] LABS: BASO % 1 % (0-3); EOS % 1 % (0-3); HEMATOCRIT 35.9 % (36.0-47.0); HEMOGLOBIN 11.9 g/dL (12.0-15.5); LYMPH # 0.6 x10^3/uL (1.0-4.8); LYMPH % 17 % (24-48); MEAN CORPUSCULAR HEMOGLOBIN 29 pg (25-35); MEAN CORPUSCULAR HGB CONC 33 g/dL (31-37); MEAN CORPUSCULAR VOLUME 88 fL (79-100); MONO # 0.7 x10^3/uL (0.0-1.1); MONO % 18 % (0-9); NEUT # 2.4 x10^3uL (1.8-7.7); NEUT % 63 % (31-73); PLATELET COUNT 180 x10^3/uL (140-400); RED BLOOD COUNT 4.09 x10^6/uL (3.50-5.40); RED CELL DISTRIBUTION WIDTH 14.1 % (11.5-14.5); WHITE BLOOD COUNT 3.7 x10^3/uL (4.0-11.0)
[2020-06-16 07:00] LABS: ALBUMIN 2.5 g/dL (3.4-5.0); ALBUMIN/GLOBULIN RATIO 0.7 (1.0-1.7); CALCIUM 8.5 mg/dL (8.5-10.1); CREATININE 0.7 mg/dL (0.6-1.0); GFR 82.7; POTASSIUM 4.1 mmol/L (3.5-5.1); TOTAL BILIRUBIN 0.1 mg/dL (0.2-1.0)
[2020-06-16] MEDS: VITAMIN B COMPLEX CAPSULE. PO SCH (09:12)
[2020-06-16] MEDS: FLUTICASONE/VILANTEROL 200/25 INHALER. INH SCH (09:13)
[2020-06-16] MEDS: amLODIPine BESYLATE 5 MG TABLET PO SCH (09:13)
[2020-06-16] MEDS: CHOLECALCIFEROL (VITAMIN D3) 1,000 UNIT TABLET PO SCH (09:13)
[2020-06-16] MEDS: ALBUTEROL SULFATE 8GM INHALER. INH PRN ×2 (09:16→16:25)
[2020-06-16 15:48] VITALS: BP 134/76
--- NOTE | 2020-06-16 18:30 | NUR ---
Patient was calm, compliant, and pleasant most of this shift. She has been occupied with not taking a shower today. Will report to oncoming shift and continue to monitor.
--- NOTE | 2020-06-16 19:30 | NUR ---
Resumed pt care.
[2020-06-16] MEDS: DIVALPROEX ER 250 MG TAB.ER.24H. PO SCH (20:48)
[2020-06-16] MEDS: MELATONIN 3 MG TABLET PO SCH (20:48)
[2020-06-16] MEDS: MONTELUKAST 10 MG TABLET. PO SCH (20:48)
[2020-06-16] MEDS: ZIPRASIDONE 80 MG CAPSULE. PO SCH (20:48)
[2020-06-16] MEDS: DIVALPROEX ER 500 MG TAB.ER.24H PO SCH (20:48)
[2020-06-16] MEDS: LOSARTAN 50 MG TABLET. PO SCH (20:49)
[2020-06-16] MEDS: HYDROcodone/APAP 5/325MG 1 TAB TABLET PO PRN (20:53)
--- NOTE | 2020-06-16 22:33 | PDOC ---
Exam Note: Mik Note: Please also refer to the separate dictated note~for this date of service dictated separately.~Patient seen individually. Discussed the patient with Nursing staff reviewed the chart.~Reviewed interim history and current functioning. Reviewed vital signs,~Labs/ Radiology~and current medications noted below. Continue current treatment with the changes noted in the dictated addendum note Assessment: Vital Signs/I&O: Vital Signs Date Time Temp Pulse Resp B/P (MAP) Pulse Ox O2 Delivery O2 Flow Rate FiO2 06/16/20 21:25 99.1 94 2.0 06/16/20 20:49 75 134/76 06/16/20 15:48 19 Nasal Cannula I & O 0 06/15/20 06/15/20 06/16/20 15:00 23:00 07:00 Intake Total 720 ml 340 ml Balance 720 ml 340 ml Labs: Laboratory Tests Test 06/16/20 06:35 White Blood Count 3.7 x10^3/uL (4.0-11.0) L Red Blood Count 4.09 x10^6/uL (3.50-5.40) Hemoglobin 11.9 g/dL (12.0-15.5) L Hematocrit 35.9 % (36.0-47.0) L Mean Corpuscular Volume 88 fL (79-100) Mean Corpuscular Hemoglobin 29 pg (25-35) Mean Corpuscular Hemoglobin Concent 33 g/dL (31-37) Red Cell Distribution Width 14.1 % (11.5-14.5) Platelet Count 180 x10^3/uL (140-400) Neutrophils (%) (Auto) 63 % (31-73) Lymphocytes (%) (Auto) 17 % (24-48) L Monocytes (%) (Auto) 18 % (0-9) H Eosinophils (%) (Auto) 1 % (0-3) Basophils (%) (Auto) 1 % (0-3) Neutrophils # (Auto) 2.4 x10^3uL (1.8-7.7) Lymphocytes # (Auto) 0.6 x10^3/uL (1.0-4.8) L Monocytes # (Auto) 0.7 x10^3/uL (0.0-1.1) Eosinophils # (Auto) 0.0 x10^3/uL (0.0-0.7) Basophils # (Auto) 0.0 x10^3/uL (0.0-0.2) Sodium Level 137 mmol/L (136-145) Potassium Level 4.1 mmol/L (3.5-5.1) Chloride Level 100 mmol/L (98-107) Carbon Dioxide Level 34 mmol/L (21-32) H Anion Gap 3 (6-14) L Blood Urea Nitrogen 8 mg/dL (7-20) Creatinine 0.7 mg/dL (0.6-1.0) Estimated GFR (Cockcroft-Gault) 82.7 BUN/Creatinine Ratio 11 (6-20) Glucose Level 93 mg/dL (70-99) Calcium Level 8.5 mg/dL (8.5-10.1) Total Bilirubin 0.1 mg/dL (0.2-1.0) L Aspartate Amino Transferase (AST) 16 U/L (15-37) Alanine Aminotransferase (ALT) 19 U/L (14-59) Alkaline Phosphatase 59 U/L (46-116) Total Protein 6.0 g/dL (6.4-8.2) L Albumin 2.5 g/dL (3.4-5.0) L Albumin/Globulin Ratio 0.7 (1.0-1.7) L Current Medications: I have reviewed the current psychotropics carefully including drug interactions. Risk benefit ratio favors no change other than as noted in my dictated progress note. Diagnosis: Problems: (1) Bipolar 1 disorder, manic, moderate (2) Chronic obstructive pulmonary disease (COPD) (3) Impulse control disorder, unspecified (4) Anxiety disorder, unspecified (5) Shortness of breath TYLER NEGRO MD Jun 16, 2020 22:33
--- NOTE | 2020-06-17 01:30 | NUR ---
Pt reported to aide ahe wasn't able to sleep. Declined any PRN medication. Pt thinks the humidifier is causing water to run into her right ear. Humidifier removed and pt was place on straight O2. Pt happy with this.
--- NOTE | 2020-06-17 04:07 | NUR ---
Pt was compliant with HS meds. Has rested quietly rest of evening. Pt took HS meds without difficulty.
[2020-06-17 06:02] VITALS: BP 114/64
--- NOTE | 2020-06-17 07:08 | PDOC ---
Exam Note: Mik Note: This note is a late entry for 06/15/2020 covers elements not covered in my initial note. Subjective: The patient was evaluated on telehealth rounds in the evening of 06/15/2020 with nursing staff. Per Jeanna WATT, she slept 7-1/4 hours previous night. She has been complaining of sore throat. We will defer to Dr. Doran. Review of Systems: Shortness of breath on O2 supplements. Sore throat. Impaired ambulation with walker. No CV, , eye system symptoms on review. Mental Status Exam: Oriented reasonably. She was quite animated, verbal saluting me but not manic and quite appropriate. Abstraction is fair. Computation impaired. Language function intact. No psychotic symptoms, suic idal or homicidal ideation. Laboratory Data: Reviewed. Impression: Bipolar disorder manic with psychotic features, anxiety disorder unspecified, impulse control disorder unspecified. Plan: No change from initial note. Assessment: Vital Signs/I&O: Vital Signs Date Time Temp Pulse Resp B/P (MAP) Pulse Ox O2 Delivery O2 Flow Rate FiO2 06/17/20 06:02 98.1 62 18 114/64 (81) 95 2.0 06/16/20 15:48 Nasal Cannula I & O 06/16/20 06/16/20 06/17/20 15:00 23:00 07:00 Intake Total 600 ml 240 ml Balance 600 ml 240 ml Current Medications: I have reviewed the current psychotropics carefully including drug interactions. Risk benefit ratio favors no change other than as noted in my dictated progress note. Diagnosis: Problems: (1) Bipolar 1 disorder, manic, moderate (2) Chronic obstructive pulmonary disease (COPD) (3) Impulse control disorder, unspecified (4) Anxiety disorder, unspecified (5) Shortness of breath TYLER NEGRO MD Jun 17, 2020 07:08
--- NOTE | 2020-06-17 07:16 | PDOC ---
Exam Note: Mik Note: This note is a late entry for 06/16/2020 covers elements not covered in my initial note. Subjective: The patient was evaluated on telehealth rounds in the evening of 06/16/2020 with Annalisa, nursing staff. Per Timmy WATT, she still complains of some sore throat. We will defer to Dr. Doran. She slept 7-3/4 hours previous night. Review of Systems: Shortness of breath on O2 supplements. Sore throat. Impaired ambulation with walker. No CV, , eye system symptoms on review. Mental Status Exam: Oriented reasonably. She is pleasant, verbal. Abstraction is fair. Computation impaired. Language function intact. No clear suicidal or homicidal ideation. Laboratory Data: Reviewed. Impression: Bipolar disorder manic with psychotic features, anxiety disorder unspecified, impulse control disorder unspecified. Plan: No change from initial note. We will adjust her psychotropics further as clinically indicated. Valproic acid level is therapeutic at 66. Assessment: Vital Signs/I&O: Vital Signs Date Time Temp Pulse Resp B/P (MAP) Pulse Ox O2 Delivery O2 Flow Rate FiO2 06/17/20 06:02 98.1 62 18 114/64 (81) 95 2.0 06/16/20 15:48 Nasal Cannula I & O 06/16/20 06/16/20 06/17/20 15:00 23:00 07:00 Intake Total 600 ml 240 ml Balance 600 ml 240 ml Current Medications: I have reviewed the current psychotropics carefully including drug interactions. Risk benefit ratio favors no change other than as noted in my dictated progress note. Diagnosis: Problems: (1) Bipolar 1 disorder, manic, moderate (2) Chronic obstructive pulmonary disease (COPD) (3) Impulse control disorder, unspecified (4) Anxiety disorder, unspecified (5) Shortness of breath TYLER NEGRO MD Jun 17, 2020 07:16
[2020-06-17] MEDS: amLODIPine BESYLATE 5 MG TABLET PO SCH (09:15)
[2020-06-17] MEDS: CHOLECALCIFEROL (VITAMIN D3) 1,000 UNIT TABLET PO SCH (09:15)
[2020-06-17] MEDS: VITAMIN B COMPLEX CAPSULE. PO SCH (09:15)
[2020-06-17] MEDS: HYDROcodone/APAP 5/325MG 1 TAB TABLET PO PRN ×4 (09:16→22:46)
[2020-06-17] MEDS: FLUTICASONE/VILANTEROL 200/25 INHALER. INH SCH (09:16)
[2020-06-17] MEDS: ALBUTEROL SULFATE 8GM INHALER. INH PRN ×3 (09:17→18:26)
--- NOTE | 2020-06-17 11:14 | NUR ---
Nursing note: Pt in her room for morning meds and assessment. She was med compliant and cooperative. Pt questioned if we had her COVID-19 results from her swab done earlier this week, stating "not having the results is causing me anxiety." Pt c/o pain in her low back and tailbone rated 10/10. PRN lortab provided. Pt also requested PRN albuterol. Immediately after taking inhaler, pt began to cough yellow phlegm into her tissue saying "see how quickly that works and loosens up the phlegm in my throat". Pt then mentioned "this is all coming from my right lung". Pt's lungs were both CTA. She is currently resting in bed. Will continue to monitor.
[2020-06-17 15:39] VITALS: BP 131/75
[2020-06-17 21:27] VITALS: BP 131/75
[2020-06-17] MEDS: MELATONIN 3 MG TABLET PO SCH (21:27)
[2020-06-17] MEDS: DIVALPROEX ER 250 MG TAB.ER.24H. PO SCH (21:27)
[2020-06-17] MEDS: MONTELUKAST 10 MG TABLET. PO SCH (21:27)
[2020-06-17] MEDS: LOSARTAN 50 MG TABLET. PO SCH (21:27)
[2020-06-17] MEDS: DIVALPROEX ER 500 MG TAB.ER.24H PO SCH (21:27)
[2020-06-17] MEDS: ZIPRASIDONE 80 MG CAPSULE. PO SCH (21:27)
--- NOTE | 2020-06-17 22:05 | PDOC ---
Exam Note: Mik Note: Please also refer to the separate dictated note~for this date of service dictated separately.~Patient seen individually. Discussed the patient with Nursing staff reviewed the chart.~Reviewed interim history and current functioning. Reviewed vital signs,~Labs/ Radiology~and current medications noted below. Continue current treatment with the changes noted in the dictated addendum note Assessment: Vital Signs/I&O: Vital Signs Date Time Temp Pulse Resp B/P (MAP) Pulse Ox O2 Delivery O2 Flow Rate FiO2 06/17/20 21:27 72 131/75 06/17/20 20:00 98.9 99 06/17/20 15:39 18 Nasal Cannula 2.0 I & O 0 06/16/20 06/16/20 06/17/20 15:00 23:00 07:00 Intake Total 600 ml 240 ml Balance 600 ml 240 ml Current Medications: I have reviewed the current psychotropics carefully including drug interactions. Risk benefit ratio favors no change other than as noted in my dictated progress note. Diagnosis: Problems: (1) Bipolar 1 disorder, manic, moderate (2) Chronic obstructive pulmonary disease (COPD) (3) Impulse control disorder, unspecified (4) Anxiety disorder, unspecified (5) Shortness of breath TYLER NEGRO MD Jun 17, 2020 22:05
[2020-06-17] MEDS ORDERED: CLON1PAT3 TD (23:11)
[2020-06-17] MEDS ORDERED: FLUT1BLS IH (23:13)
[2020-06-17] MEDS ORDERED: MELA3TAB19 PO (23:15)
[2020-06-17] MEDS ORDERED: SALI44.3 MM (23:16)
[2020-06-17] MEDS ORDERED: DOCU100C28 PO (23:17)
[2020-06-17] MEDS ORDERED: MAGN24003 PO (23:18)
[2020-06-17] MEDS ORDERED: MAG-83 PO (23:19)
[2020-06-17] MEDS ORDERED: OLAN5TAB99 PO (23:20)
[2020-06-17] MEDS ORDERED: DIVA500T4 PO (23:21)
[2020-06-17] MEDS ORDERED: DIVA250T PO (23:21)
[2020-06-17] MEDS ORDERED: METH113C10 TP (23:23)
--- NOTE | 2020-06-17 23:30 | NUR ---
Nursing Note Pt has a covid positive result at 2230, found by me in the chart as I was reviewing data, called lab to confirm that it was indeed positive, lab confirmed positive. Pt transferred to room 123 on report to Tali.
--- NOTE | 2020-06-17 23:54 | NUR ---
Transition Record was faxed to follow-up provider with the following elements: Reason for admission, procedures, tests, principal diagnosis, pending studies, patient instructions, 19/06 contact information for unit, phone number to obtain pending test results, plan for follow-up care, physician follow-up, advanced directive information, and medication list with dose, duration and instructions. This information was included in the following documents: History and physical, lab results, study results, progress notes, social work planning form, DC instruction form, patient visit summary, and medication reconciliation form. Date & time record faxed: 06/17/20 [id number] Record faxed to: Tali Lyons [id number] Record discussed with/ report given to: Tali Lyons RN
[2020-06-18] MEDS ORDERED: MAG30ORA2 PO (00:23)
--- NOTE | 2020-06-18 22:05 | PDOC ---
Exam Note: Mik Note: Please also refer to the separate dictated note~for this date of service dictated separately.~Patient seen individually. Discussed the patient with Nursing staff reviewed the chart.~Reviewed interim history and current functioning. Reviewed vital signs,~Labs/ Radiology~and current medications noted below. Continue current treatment with the changes noted in the dictated addendum note Assessment: Vital Signs/I&O: Vital Signs Date Time Temp Pulse Resp B/P (MAP) Pulse Ox O2 Delivery O2 Flow Rate FiO2 06/17/20 22:46 99 06/17/20 21:27 72 131/75 06/17/20 20:00 98.9 06/17/20 15:39 18 Nasal Cannula 2.0 I & O 06/17/20 06/17/20 06/18/20 14:59 22:59 06:59 Intake Total 720 ml 200 ml Balance 720 ml 200 ml Current Medications: I have reviewed the current psychotropics carefully including drug interactions. Risk benefit ratio favors no change other than as noted in my dictated progress note. Diagnosis: Problems: (1) Bipolar 1 disorder, manic, moderate (2) Chronic obstructive pulmonary disease (COPD) (3) Impulse control disorder, unspecified (4) Anxiety disorder, unspecified (5) Shortness of breath TYLER NEGRO MD Jun 18, 2020 22:05
--- NOTE | 2020-06-19 17:16 | DS ---
DATE OF DISCHARGE: 06/17/2020 DISCHARGE SUMMARY/PSYCHIATRIC PROGRESS NOTE This late entry, date of service 06/17/2020 covers elements not covered in my initial note. REASON FOR ADMISSION: Please refer to the admission history for details. Briefly, the patient is a 70-year-old female referred to us from [facility] where she presented from [facility] on account of an acute exacerbation of her bipolar disorder, manic with psychotic features. She had been more agitated, anxious, defiant, oppositional, guarded, and paranoid. She is refusing to participate in activities, refusing medications, not sleeping and having psychogenic polydipsia. She failed outpatient psychiatric interventions. Behaviors were deemed dangerous, unmanageable resulting in this referral. SIGNIFICANT FINDINGS AND CLINICAL COURSE: Following admission, the patient was seen daily individually by myself from a psychiatric standpoint, medical followup with Dr. Doran/Dr. Bowie. The patient was quite manic, grandiose, labile, seems to exaggerate some of her COPD symptoms, wanting excessive amounts of oxygen flow. Adjustments were made in her psychotropics and she seemed to be doing better on a combination of Depakote ER 1250 mg at bedtime with a Valproic acid level therapeutic at 66, melatonin 10.5 mg at bedtime, Geodon 80 mg at bedtime, Ativan p.r.n. At this time, the unit was closed to any admission discharges because of positive case of COVID-19 on the unit and she seemed to handle this well. She tended to stay in her room, but was much less manic and grandiose. No suicidal or homicidal ideation at discharge. On 06/17/2020, however, she returned back for the COVID positive screening test and was transferred to the COVID Unit on the medical/surgical floor. REVIEW OF SYSTEMS: Prior to discharge on 06/17/2020, ambulation impaired with walker, shortness of breath, on 2 liters oxygen. No CV, , GI, ENT system symptoms on review. MENTAL STATUS EXAM: Reasonably oriented. Speech is coherent, less pressured. Abstraction fair, computation impaired, language function intact, attention span short. Mood and affect was more stable. Manic symptoms appear to have subsided. CONDITION AT DISCHARGE: Improved. FINAL DIAGNOSES: Bipolar disorder, manic with psychotic features, in partial remission; anxiety disorder, unspecified; impulse control disorder, unspecified. Rest unchanged from admission. DISCHARGE MEDICATIONS: Please refer to the MRAD. Psychiatric and medical followup on . Time for discharge day management greater than 30 minutes. TYLER NEGRO MD DR: MICHELLE/deana JOB#: [id number] / [id number]
== END 2020-06-17 23:43 | disposition short-term general hospital (02) | DRG 885 ==
LOC: GEROPSY 20:25
PROVIDERS: ADMIT Psychiatry & Neurology Psychiatry; ATTEND Psychiatry & Neurology Psychiatry
DX: F31.64 Bipolar disorder, current episode mixed, severe, with psychotic features (principal); U07.1 COVID-19; J96.11 Chronic respiratory failure with hypoxia; E87.70 Fluid overload, unspecified; F09 Unspecified mental disorder due to known physiological condition; F41.9 Anxiety disorder, unspecified; F63.9 Impulse disorder, unspecified; F91.3 Oppositional defiant disorder; G47.33 Obstructive sleep apnea (adult) (pediatric); G89.29 Other chronic pain; I10 Essential (primary) hypertension; J44.9 Chronic obstructive pulmonary disease, unspecified; Z79.899 Other long term (current) drug therapy; Z91.19 Patient's noncompliance with other medical treatment and regimen; Z91.11 Patient's noncompliance with dietary regimen
CPT/HCPCS: 36415; 80053; 80061; 80164; 82306; 82607; 83036; 83540; 83550; 83735; 84436; 84443; 84480; 85025; 86592; 93005; J7613; 97530; U0003-CS

== ENCOUNTER 2020-06-17 23:30 | Inpatient (IN) | payer MEDICARE, OTHER ==
[~2020-06-17] VITALS: Ht 167.6 cm; Wt 81.2 kg
[~2020-06-17 23:30] MED LIST: ACET500T68 PO; ALBU2.5V5 NEB; ALBU2.5V8 IH; AMLO5TAB10 PO; CALC500T31 PO; CARV25TA2 PO; CHOL10002 PO; CLON0.1T PO; CLON1PAT3 TD; CRESTOR5 MG PO; DIVA250T PO; DIVA500T4 PO; DOCU100C28 PO; FLUT1BLS IH; HYDR-2155 PO; LORA-254 PO; LOSA100T2 PO; MAG-83 PO; MAGN24003 PO; MELA3TAB19 PO; MELA5TAB20 PO; METH113C10 TP; MOME13HF IH; MONT10TA80 PO; OLAN5TAB99 PO; POLY17PO5 PO; SALI44.3 MM; TIOT18CA IH; VITA1TAB19 PO; ZIPR40CA2 PO
[2020-06-18] VITALS (7 sets, daily range): BP systolic 108–176; BP diastolic 50–82
[2020-06-18] MEDS ORDERED: ACETAMINOPHEN 500 MG TABLET PO PRN (00:15)
[2020-06-18] MEDS ORDERED: MAGNESIUM HYDROXIDE 2,400 MG/30 ML ORAL.SUSP. PO PRN (00:15)
[2020-06-18] MEDS ORDERED: SALIVA STIMULANT AGENT 44ML SPRAY BOTTLE. MM PRN (00:15)
[2020-06-18] MEDS ORDERED: MAG HYDROX/AL HYDROX/SIMETH 30 ML ORAL.SUSP PO PRN (00:15)
[2020-06-18] MEDS ORDERED: POLYETHYLENE GLYCOL 3350 17 GM PACKET. PO PRN (00:15)
[2020-06-18] MEDS ORDERED: CALCIUM CARBONATE 500 MG TAB.CHEW PO PRN (00:15)
[2020-06-18] MEDS ORDERED: LORazepam 0.5 MG TABLET PO PRN (00:15)
[2020-06-18] MEDS ORDERED: MAG30ORA2 PO (00:23)
--- NOTE | 2020-06-18 01:23 | NUR ---
PT admitted from [facility] for COVID + result. PT was calm and cooperative with assessment.
[2020-06-18] MEDS ORDERED: METHYL SALICYLATE/MENTHOL TOPICAL OINTMENT 57GM TUBE. TP PRN ×2 (07:15→14:46)
[2020-06-18] MEDS ORDERED: ALBUTEROL SULFATE 8GM INHALER. INH PRN (07:15)
[2020-06-18] MEDS ORDERED: cloNIDine TTS-3 1 PATCH PATCH TD SCH (09:00)
[2020-06-18] MEDS ORDERED: FLUTICASONE/VILANTEROL 200/25 INHALER. INH SCH (09:00)
[2020-06-18] MEDS: amLODIPine BESYLATE 5 MG TABLET PO SCH (09:18)
[2020-06-18] MEDS: CHOLECALCIFEROL (VITAMIN D3) 1,000 UNIT TABLET PO SCH (09:18)
[2020-06-18] MEDS: VITAMIN B COMPLEX CAPSULE. PO SCH (09:18)
[2020-06-18] MEDS: HYDROcodone/APAP 5/325MG 1 TAB TABLET PO PRN ×3 (09:44→20:03)
--- NOTE | 2020-06-18 09:45 | NUR ---
IP: patient COVID-19 + requires contact and airborne precautions.
--- NOTE | 2020-06-18 13:36 | HP ---
ADMIT DATE: 06/17/2020 ATTENDING PHYSICIAN: Dr. Be. CHIEF COMPLAINT: The patient was on the [facility]. She had a positive COVID-19 swab. She was moved here to the COVID unit for quarantine. She denied any shortness of breath, fevers or chills. HISTORY OF PRESENT ILLNESS: The patient is a 70-year-old female from the [place], [place]. She has a history of bipolar disorder. She was admitted here on 05/20 to the [facility] with agitation, grandiose behavior, difficult to manage and she proved a danger to herself. She was started on medication. She was asymptomatic. She has COPD and is constantly wearing oxygen 24 hours a day. She denied any recent fevers, chills, cough, congestion, or sweats. She was transferred here when a COVID-19 swab was positive. PAST MEDICAL HISTORY: Significant for chronic obstructive pulmonary disease, bipolar type 1 disorder with associated anxiety and paranoia. ALLERGIES: She has no known drug allergies. CURRENT AMBULATORY MEDICINES: Include the following: Tylenol, Mylanta, albuterol, amlodipine, Lipitor, calcium, Coreg, clonidine TTS 3 patch, Depakote, docusate, fluticasone, hydrocodone p.r.n. pain, lorazepam, losartan, magnesium hydroxide, melatonin, Singulair, multivitamin, Zyprexa Zydis, MiraLax, vitamin B, vitamin D, and Geodon. SOCIAL HISTORY: She had been a smoker in the past. She is not actively smoking. No alcohol use. FAMILY HISTORY: Unobtainable. REVIEW OF SYSTEMS: Unobtainable due to the patient's confusion. She had no symptoms of cough, congestion, shortness of breath. All other systems reviewed and turned to be negative. PHYSICAL EXAMINATION: GENERAL: When I saw her, this is a pleasant, middle-aged female, in no acute distress. INITIAL VITAL SIGNS: Showed a blood pressure 158/80, pulse is 84 and regular, temperature 98.6 degrees Fahrenheit, and her oxygen saturations are 94% on 3 liters of nasal cannula supplemental oxygen. HEENT: Head is without trauma. Pupils are reactive. Sclerae are nonicteric. The oropharynx is clear. NECK: Supple, no bruits identified. LUNGS: Good breath sounds with minimal wheezing in the upper airways. CARDIOVASCULAR: Showed regular heart tones. No gallops. ABDOMEN: Soft, nontender to palpation. Bowel sounds are normoactive. EXTREMITIES: Show no cyanosis or edema. NEUROLOGIC: Focally intact. Speech is fluent. She is a little bit confused. Her affect is appropriate. SKIN: Warm and dry. PERTINENT LABORATORY STUDIES: As noted. The COVID-19 swab from earlier this week was positive. Hemoglobin 11.9 g/dL with a white count of 3700. Her electrolytes were within normal range. Creatinine 0.7 mg percent. Iron stores a little bit low. Hemoglobin A1c is 5.6. ASSESSMENT: 1. This 70-year-old female has a positive COVID-19 swab. 2. Chronic obstructive pulmonary disease, on supplemental oxygen continuous. 3. Bipolar 1 disorder with agitation and grandiose behavior. 4. Essential hypertension. 5. Hyperlipidemia. PLAN: 1. The patient was admitted to the COVID unit for quarantine. 2. Home meds reviewed and continued. 3. Diet as tolerated. 4. Followup swabs as indicated. TAMI BE MD DR: KELIN/deana JOB#: [id number] / [id number] TYLER Espinosa MD
--- NOTE | 2020-06-18 17:10 | NUR ---
FINN received a call from the mine administrator supervisor from [facility][1] as SW emailed that no one would return SW calls. SW was told that their previous Hand Assembler was let go and apologized for no one checking in through pt stay. They are aware of pt positive covoid results and will look towards updates on pt when she will be able to return to them. FINN was given the administrators cell phone and was told to call anytime with updates or concerns.
--- NOTE | 2020-06-18 17:55 | NUR ---
NSG NOTE; TODAY PT HAS BEEN CALM, COOPERATIVE AND PLEASANT TODAY SHE HAS RECEIVED TWO DOSES OF PAIN MEDS FOR CHRONIC BACK PAIN WITH GOOD PAIN RELIEF.
--- NOTE | 2020-06-18 18:34 | NUR ---
NSG NOTE; CELL PHONE & OBSERVER ELECTR[employer]OSPECTING REMOVED FROM [facility] AND GIVEN TO PT IN HER ROOM PER HER AND HER DAUGHTER'S REQUEST
[2020-06-18] MEDS: MELATONIN 3 MG TABLET PO SCH (20:02)
[2020-06-18] MEDS: DIVALPROEX ER 250 MG TAB.ER.24H. PO SCH (20:03)
[2020-06-18] MEDS: DIVALPROEX ER 500 MG TAB.ER.24H PO SCH (20:03)
[2020-06-18] MEDS: MONTELUKAST 10 MG TABLET. PO SCH (20:04)
[2020-06-18] MEDS: LOSARTAN 50 MG TABLET. PO SCH (20:04)
[2020-06-18] MEDS: ZIPRASIDONE 80 MG CAPSULE. PO SCH (20:14)
[2020-06-18] MEDS ORDERED: ZIPRASIDONE 40 MG CAPSULE. PO SCH (21:00)
[2020-06-19] MEDS: HYDROcodone/APAP 5/325MG 1 TAB TABLET PO PRN ×3 (00:08→20:39)
--- NOTE | 2020-06-19 03:05 | NUR ---
Patient in pleasant spirits. Enjoying a phone call with her daughter. She requested to have PRN Hydrocodone, which she received at [facility]. Requested another at 0000, patient appears to be sleeping comfortably at present time. Will continue to monitor.
[2020-06-19 05:43] VITALS: BP 109/46
[2020-06-19] MEDS: VITAMIN B COMPLEX CAPSULE. PO SCH (07:55)
[2020-06-19] MEDS: FLUTICASONE/VILANTEROL 200/25 INHALER. INH SCH (07:55)
[2020-06-19] MEDS: amLODIPine BESYLATE 5 MG TABLET PO SCH (07:56)
[2020-06-19] MEDS: CHOLECALCIFEROL (VITAMIN D3) 1,000 UNIT TABLET PO SCH (07:56)
[2020-06-19 10:36] VITALS: BP 134/60
[2020-06-19] MEDS: ALBUTEROL SULFATE 8GM INHALER. INH PRN (11:20)
--- NOTE | 2020-06-19 13:34 | PN ---
DATE: 06/19/2020 ATTENDING PHYSICIAN: Dr. Be. SUBJECTIVE: No complaints. She is comfortable. She denied any fevers, chills, cough or congestion. OBJECTIVE FINDINGS: VITAL SIGNS: Today, blood pressure is 134/60 mmHg, heart rate is 77 and regular, temperature 97.2 degrees Fahrenheit, oxygen saturation 97% on 3 liters nasal cannula, which is chronic for her. HEENT: Head is without trauma. Pupils are reactive. Sclerae nonicteric. Oropharynx clear. NECK: Supple, no bruits. LUNGS: Otherwise clear with good air movement. CARDIOVASCULAR: Showed regular heart tones. No gallops. Peripheral pulses are palpable and full. ABDOMEN: Soft, obese, protuberant. No organomegaly. Bowel sounds are hypoactive. EXTREMITIES: Showed no cyanosis or edema. NEUROLOGIC: Focally intact. Speech is fluent. SKIN: Warm and dry. PERTINENT LABORATORY DATA: From yesterday were reviewed. ASSESSMENT: 1. A 70-year-old female with COVID-19 positive swab. 2. Chronic obstructive pulmonary disease, on chronic. Continue with oxygen, stable. 3. Bipolar 1 disorder with agitation, stable. 4. Essential hypertension, currently normotensive. 5. Hyperlipidemia. PLAN: 1. COVID admission for quarantine. 2. Home meds reviewed and continue. 3. Diet as tolerated. 4. Followup swab as indicated. TAMI BE MD DR: KELIN/deana JOB#: [id number] / [id number]
[2020-06-19 14:56] VITALS: BP 138/57
--- NOTE | 2020-06-19 16:01 | NUR ---
patient is nice and pleasant this am upon assessment, cooperative with care and compliant with medications. patient is a/o x4 , able to perform ADLs independently. patient requested pain medication for her lower back , hydrocodone administered as ordered. will continue to monitor.
[2020-06-19 19:00] VITALS: BP 135/59
[2020-06-19] MEDS: DIVALPROEX ER 500 MG TAB.ER.24H PO SCH (20:19)
[2020-06-19] MEDS: MONTELUKAST 10 MG TABLET. PO SCH (20:20)
[2020-06-19] MEDS: MELATONIN 3 MG TABLET PO SCH (20:20)
[2020-06-19] MEDS: DIVALPROEX ER 250 MG TAB.ER.24H. PO SCH (20:20)
[2020-06-19] MEDS: LOSARTAN 50 MG TABLET. PO SCH (20:20)
[2020-06-19] MEDS: ZIPRASIDONE 80 MG CAPSULE. PO SCH (20:20)
[2020-06-19 22:23] VITALS: BP 118/47
[2020-06-20 05:37] VITALS: BP 136/56
[2020-06-20] MEDS: amLODIPine BESYLATE 5 MG TABLET PO SCH (08:40)
[2020-06-20] MEDS: VITAMIN B COMPLEX CAPSULE. PO SCH (08:40)
[2020-06-20] MEDS: FLUTICASONE/VILANTEROL 200/25 INHALER. INH SCH (08:40)
[2020-06-20] MEDS: CHOLECALCIFEROL (VITAMIN D3) 1,000 UNIT TABLET PO SCH (08:40)
[2020-06-20] MEDS: cloNIDine TTS-3 1 PATCH PATCH TD SCH (08:41)
[2020-06-20 10:47] VITALS: BP 124/60
[2020-06-20] MEDS: ALBUTEROL SULFATE 8GM INHALER. INH PRN (14:40)
[2020-06-20] MEDS: HYDROcodone/APAP 5/325MG 1 TAB TABLET PO PRN ×2 (14:55→20:07)
[2020-06-20 15:57] VITALS: BP 138/54
[2020-06-20 19:30] VITALS: BP 145/56
[2020-06-20] MEDS: MELATONIN 3 MG TABLET PO SCH (20:05)
[2020-06-20] MEDS: ZIPRASIDONE 80 MG CAPSULE. PO SCH (20:05)
[2020-06-20] MEDS: MONTELUKAST 10 MG TABLET. PO SCH (20:06)
[2020-06-20] MEDS: LOSARTAN 50 MG TABLET. PO SCH (20:07)
[2020-06-20] MEDS: DIVALPROEX ER 500 MG TAB.ER.24H PO SCH (20:08)
[2020-06-20] MEDS: DIVALPROEX ER 250 MG TAB.ER.24H. PO SCH (20:08)
--- NOTE | 2020-06-20 22:18 | NUR ---
Patient is sitting up, watching television, at start of shift. She is in very pleasant spirits, polite and interactive with staff. Compliant with assessments and medications taken whole. Requested to have PRN pain medication with her HS meds. Received Hydrocodone at that time, with moderate effect. No agitation. Will continue to monitor.
[2020-06-20 22:44] VITALS: BP 110/54
[2020-06-21 05:33] VITALS: BP 125/47
[2020-06-21] MEDS: amLODIPine BESYLATE 5 MG TABLET PO SCH (08:57)
[2020-06-21] MEDS: VITAMIN B COMPLEX CAPSULE. PO SCH (08:57)
[2020-06-21] MEDS: CHOLECALCIFEROL (VITAMIN D3) 1,000 UNIT TABLET PO SCH (08:57)
[2020-06-21] MEDS: ALBUTEROL SULFATE 8GM INHALER. INH PRN ×2 (08:57→15:05)
[2020-06-21] MEDS: FLUTICASONE/VILANTEROL 200/25 INHALER. INH SCH (08:58)
[2020-06-21] MEDS: HYDROcodone/APAP 5/325MG 1 TAB TABLET PO PRN ×3 (09:17→20:36)
--- NOTE | 2020-06-21 10:05 | PN ---
DATE: 06/20/2020 SUBJECTIVE: The patient is comfortable. She denied any shortness of breath, fevers or chills. Otherwise, no complaints. OBJECTIVE FINDINGS: VITAL SIGNS: Her blood pressure today is 124/60, pulse 75 and regular, temperature 98.5 degrees Fahrenheit, and oxygen saturation 97% on room air. HEENT: Head is without trauma. Pupils are reactive. Sclerae nonicteric. Oropharynx clear. NECK: Supple, no bruits. LUNGS: Good breath sounds. CARDIOVASCULAR: Showed regular heart tones. No gallops. ABDOMEN: Soft, protuberant. No organomegaly. Bowel sounds are normoactive. EXTREMITIES: Showed no cyanosis or edema. NEUROLOGIC: Focally intact. Speech is fluent. SKIN: Warm and dry. ASSESSMENT: 1. A 70-year-old female with COVID-19 positive swab from the [facility]. She is totally asymptomatic. 2. Chronic obstructive pulmonary disease, on chronic oxygen, stable. 3. Bipolar 1 disorder, stable. 4. Essential hypertension. 5. Hyperlipidemia. PLAN: 1. COVID admission for quarantine. 2. Home meds reviewed. 3. Diet as tolerated. 4. Follow up the swab next week. TAMI BE MD DR: KELIN/deana JOB#: [id number] / [id number]
[2020-06-21 11:00] VITALS: BP 145/56
--- NOTE | 2020-06-21 11:30 | PN ---
DATE: 06/21/2020 SUBJECTIVE: The patient is comfortable. She denied any shortness of breath. She is pleasant and has no respiratory distress. OBJECTIVE FINDINGS: VITAL SIGNS: Blood pressure today is 125/47, pulse is 60 and regular, temperature 97.7 degrees Fahrenheit and her oxygen saturations are at 100% on 3 liters nasal cannula. HEENT: Head is without trauma. Pupils are reactive. Sclerae nonicteric. Oropharynx clear. NECK: Supple, no bruits identified. LUNGS: Good breath sounds. CARDIOVASCULAR: Showed regular heart tones. No gallops. Peripheral pulses are palpable and full. ABDOMEN: Soft, protuberant. No organomegaly. Normal bowel sounds. EXTREMITIES: Showed no cyanosis or edema. NEUROLOGIC: Focally intact. Speech is fluent. No deficits. SKIN: Warm and dry. ASSESSMENT: 1. A 70-year-old female with COVID-19 positive swab from the [facility]. She remains totally asymptomatic. 2. Chronic obstructive pulmonary disease, on chronic supplemental oxygen, stable. 3. Bipolar 1 disorder, stable. 4. Essential hypertension. 5. Hyperlipidemia. PLAN: 1. COVID admission for quarantine. 2. Home meds reviewed. 3. Followup swabs next week. 4. Diet as tolerated. TAMI BE MD DR: KELIN/deana JOB#: [id number] / [id number]
[2020-06-21 15:50] VITALS: BP 118/54
[2020-06-21 19:21] VITALS: BP 151/58
[2020-06-21] MEDS: ZIPRASIDONE 80 MG CAPSULE. PO SCH (20:35)
[2020-06-21] MEDS: DIVALPROEX ER 500 MG TAB.ER.24H PO SCH (20:35)
[2020-06-21] MEDS: LOSARTAN 50 MG TABLET. PO SCH (20:36)
[2020-06-21] MEDS: MONTELUKAST 10 MG TABLET. PO SCH (20:36)
[2020-06-21] MEDS: MELATONIN 3 MG TABLET PO SCH (20:36)
[2020-06-21] MEDS: DIVALPROEX ER 250 MG TAB.ER.24H. PO SCH (20:36)
[2020-06-21 22:38] VITALS: BP 99/45
[2020-06-22 05:43] VITALS: BP 116/48
[2020-06-22] MEDS: VITAMIN B COMPLEX CAPSULE. PO SCH (09:25)
[2020-06-22] MEDS: CHOLECALCIFEROL (VITAMIN D3) 1,000 UNIT TABLET PO SCH (09:25)
[2020-06-22] MEDS: HYDROcodone/APAP 5/325MG 1 TAB TABLET PO PRN (09:26)
[2020-06-22] MEDS: FLUTICASONE/VILANTEROL 200/25 INHALER. INH SCH (09:26)
[2020-06-22] MEDS: amLODIPine BESYLATE 5 MG TABLET PO SCH (09:26)
[2020-06-22 10:43] VITALS: BP 144/50
--- NOTE | 2020-06-22 11:09 | PN ---
DATE: 06/22/2020 ATTENDING PHYSICIAN: Dr. Be. SUBJECTIVE: No new complaints. She is comfortable. She denied any chest pain, dyspnea, cough or congestion. OBJECTIVE FINDINGS: VITAL SIGNS: Her blood pressure today is 116/50 mmHg, her temperature is 97.6 degrees Fahrenheit, heart rate 69 and regular, oxygen saturation on 3 liters nasal cannula has maintained adequate oxygenation. HEENT: Head is without trauma. Pupils are reactive. Sclerae nonicteric. Oropharynx is clear. NECK: Supple, no bruits. LUNGS: Good breath sounds. CARDIOVASCULAR: Showed regular heart tones. No gallops. Peripheral pulses are palpable and full. ABDOMEN: Soft, nontender, no organomegaly, normal bowel sounds. EXTREMITIES: Showed no cyanosis or edema. NEUROLOGIC: Focally intact. Speech is fluent. SKIN: Warm and dry. ASSESSMENT: 1. A 70-year-old female with COVID-19 positive swabs from the [facility]. She is totally asymptomatic. 2. Chronic obstructive pulmonary disease, on chronic supplemental oxygen, stable. 3. Bipolar 1 disorder. 4. Essential hypertension. 5. Hyperlipidemia. PLAN: 1. COVID admission for quarantine. 2. Home meds reviewed. 3. Followup swabs later this week, if she is going to get a place they will need consecutive negative swabs. TAMI BE MD DR: KELIN/deana JOB#: [id number] / [id number]
[2020-06-22 14:47] VITALS: BP 125/54
[2020-06-22 19:00] VITALS: BP 123/79
[2020-06-22] MEDS: MELATONIN 3 MG TABLET PO SCH (21:26)
[2020-06-22] MEDS: ACETAMINOPHEN 500 MG TABLET PO PRN (21:26)
[2020-06-22] MEDS: LOSARTAN 50 MG TABLET. PO SCH (21:26)
[2020-06-22] MEDS: ZIPRASIDONE 80 MG CAPSULE. PO SCH (21:27)
[2020-06-22] MEDS: MONTELUKAST 10 MG TABLET. PO SCH (21:27)
[2020-06-22] MEDS: DIVALPROEX ER 500 MG TAB.ER.24H PO SCH (21:27)
[2020-06-22] MEDS: DIVALPROEX ER 250 MG TAB.ER.24H. PO SCH (21:27)
[2020-06-22 23:10] VITALS: BP 135/60
[2020-06-23 05:00] VITALS: BP 163/72
[2020-06-23] MEDS: FLUTICASONE/VILANTEROL 200/25 INHALER. INH SCH (09:26)
[2020-06-23] MEDS: ALBUTEROL SULFATE 8GM INHALER. INH PRN ×2 (09:26→13:32)
[2020-06-23] MEDS: VITAMIN B COMPLEX CAPSULE. PO SCH (09:26)
[2020-06-23] MEDS: CHOLECALCIFEROL (VITAMIN D3) 1,000 UNIT TABLET PO SCH (09:26)
[2020-06-23] MEDS: amLODIPine BESYLATE 5 MG TABLET PO SCH (09:26)
[2020-06-23] MEDS: ACETAMINOPHEN 500 MG TABLET PO PRN (09:48)
[2020-06-23 10:43] VITALS: BP 169/78
--- NOTE | 2020-06-23 10:56 | PN ---
DATE: 06/23/2020 ATTENDING PHYSICIAN: Dr. Be. SUBJECTIVE: No complaints. She is comfortable. She is not symptomatic. OBJECTIVE FINDINGS: VITAL SIGNS: Blood pressure today is 135/60, pulse is 70 and regular, temperature 97.0 degrees Fahrenheit, oxygen saturation 96% on 3 liters, which is continuous for her. HEENT: Head is without trauma. Pupils are reactive. Sclerae nonicteric. Oropharynx clear. NECK: Supple, no bruits. LUNGS: Otherwise clear. CARDIOVASCULAR: Showed regular heart tones. No gallops, no murmurs. Peripheral pulses are palpable and full. ABDOMEN: Soft, scaphoid, nontender, no organomegaly. Bowel sounds were normoactive. EXTREMITIES: Showed no cyanosis or edema. NEUROLOGIC: Focally intact. Speech is fluent. SKIN: Warm and dry. ASSESSMENT: 1. A 70-year-old female with COVID-19 positive swabs from the [facility]. She is totally asymptomatic. 2. Chronic obstructive pulmonary disease, on supplemental oxygen, stable. 3. Bipolar 1 disorder, calm. 4. Essential hypertension. 5. Hyperlipidemia. PLAN: 1. COVID admission for quarantine. 2. Home meds reviewed and continued. 3. A followup swab later this week. Eventual placement. TAMI BE MD DR: KELIN/deana JOB#: [id number] / [id number]
[2020-06-23] MEDS: traMADol 50 MG TABLET PO PRN (13:31)
[2020-06-23 14:46] VITALS: BP 163/86
--- NOTE | 2020-06-23 16:17 | NUR ---
Patient has been calm, cooperative, and pleasant throughout this shift. She has had complaints of pain; prn provided per eMAR. Patient states she does not like hydrocodone as it makes her feel funny. MD notified, new order received. Patient had further complaints of pain; prn medication provided per eMAR. Will continue to monitor and report to oncoming shift.
[2020-06-23 19:39] VITALS: BP 143/60
[2020-06-23] MEDS: DIVALPROEX ER 500 MG TAB.ER.24H PO SCH (20:35)
[2020-06-23] MEDS: MONTELUKAST 10 MG TABLET. PO SCH (20:35)
[2020-06-23] MEDS: LOSARTAN 50 MG TABLET. PO SCH (20:36)
[2020-06-23] MEDS: DIVALPROEX ER 250 MG TAB.ER.24H. PO SCH (20:36)
[2020-06-23] MEDS: MELATONIN 3 MG TABLET PO SCH (20:36)
[2020-06-23] MEDS: ZIPRASIDONE 80 MG CAPSULE. PO SCH (20:43)
[2020-06-23] MEDS: HYDROcodone/APAP 5/325MG 1 TAB TABLET PO PRN (20:57)
[2020-06-23 22:54] VITALS: BP 133/59
[2020-06-24 05:56] VITALS: BP 173/51
[2020-06-24] MEDS: CHOLECALCIFEROL (VITAMIN D3) 1,000 UNIT TABLET PO SCH (09:11)
[2020-06-24] MEDS: VITAMIN B COMPLEX CAPSULE. PO SCH (09:12)
[2020-06-24] MEDS: ALBUTEROL SULFATE 8GM INHALER. INH PRN ×3 (09:12→17:30)
[2020-06-24] MEDS: FLUTICASONE/VILANTEROL 200/25 INHALER. INH SCH (09:12)
[2020-06-24] MEDS: amLODIPine BESYLATE 5 MG TABLET PO SCH (09:12)
[2020-06-24 10:44] VITALS: BP 167/57
[2020-06-24] MEDS: traMADol 50 MG TABLET PO PRN (12:18)
[2020-06-24 20:04] VITALS: BP 163/55
[2020-06-24] MEDS: MELATONIN 3 MG TABLET PO SCH (20:42)
[2020-06-24] MEDS: MONTELUKAST 10 MG TABLET. PO SCH (20:42)
[2020-06-24] MEDS: DIVALPROEX ER 500 MG TAB.ER.24H PO SCH (20:43)
[2020-06-24] MEDS: DIVALPROEX ER 250 MG TAB.ER.24H. PO SCH (20:43)
[2020-06-24] MEDS: LOSARTAN 50 MG TABLET. PO SCH (20:43)
[2020-06-24] MEDS: HYDROcodone/APAP 5/325MG 1 TAB TABLET PO PRN (20:43)
[2020-06-24] MEDS: ZIPRASIDONE 80 MG CAPSULE. PO SCH (21:13)
--- NOTE | 2020-06-25 00:40 | PN ---
DATE: 06/24/2020 SUBJECTIVE: The patient is sitting comfortably in her chair, in no apparent respiratory distress. Apart from her back pain, she denied any other complaints, in particular denied any shortness of breath, cough, chills, rigors or fever. PHYSICAL EXAMINATION: GENERAL: When I examined her, she looked well and was clearly in no apparent respiratory distress. Slightly pale. No jaundice, cyanosis or thyromegaly. No jugular venous distention. No limb edema. VITAL SIGNS: Her heart rate was 87, blood pressure was 167/57, temperature 98.1, respiratory rate 20, and oxygen saturation was 98% on 3 liters of oxygen. HEAD, EYES, EARS, NOSE AND THROAT: Normocephalic, atraumatic. NECK: Supple. HEART: Showed normal first and second heart sounds. No gallop or murmur. CHEST: Clear to auscultation. No crepitation or rhonchi. ABDOMEN: Distended, soft, nontender. NEUROLOGIC: She was awake, alert, responding appropriately. All cranial nerves intact. She moves extremities without difficulty. Her intake over the last 24 hours was 925, no output was recorded. LABORATORY DATA: Her most recent lab work showed a white cell count of 3700, hemoglobin 12, hematocrit 36, MCV 88 and platelet count of 180,000. Her chemistry showed a serum sodium 137, potassium 4.1, chloride 100, bicarbonate 34, anion gap of 3, BUN 8, creatinine 0.7, estimated GFR was 83 mL per minute. Her glucose was 93, calcium was 8.5, magnesium was 2.2. Her total bilirubin, AST, ALT, alkaline phosphatase were normal. ASSESSMENT: 1. A 70-year-old female with COVID-19 positive swabs from [facility]. She continued to be completely asymptomatic. 2. Chronic obstructive pulmonary disease, on supplemental oxygen, stable. 3. Bipolar disorder, calm. 4. Essential hypertension. 5. Hyperlipidemia. PLAN: Continue with all her medication. She will have a followup swab for eventual discharge. HORACIO RAMIREZ MD DR: SHAZIA/deana JOB#: [id number] / [id number]
--- NOTE | 2020-06-25 05:47 | NUR ---
PT has slept throughout the night. PT was calm and cooperative with cares and assessment. PT able to take medications with no problem. PT was very polite throughout interactions.
[2020-06-25] MEDS: VITAMIN B COMPLEX CAPSULE. PO SCH (08:01)
[2020-06-25] MEDS: FLUTICASONE/VILANTEROL 200/25 INHALER. INH SCH (08:01)
[2020-06-25] MEDS: DOCUSATE SODIUM 100 MG CAPSULE PO PRN (08:02)
[2020-06-25] MEDS: CHOLECALCIFEROL (VITAMIN D3) 1,000 UNIT TABLET PO SCH (08:02)
[2020-06-25] MEDS: amLODIPine BESYLATE 5 MG TABLET PO SCH (08:03)
[2020-06-25 08:48] VITALS: BP 140/60
--- NOTE | 2020-06-25 11:29 | NUR ---
FINN contacted pt dtr, Cary, who reports that pt appears to be doing well downstairs. Pt initially was able to call one dtr who tends to be very over the top reporting that pt is only on 2L of oxygen when she is supposed to be on 5L. It was explained that pt is sating in the 90s on 2L and there is no need to be more unless indicated. Once pt is able to get swabbed and receives a negative swab, she can return to [facility]. SW will aid in making those arrangements.
[2020-06-25] MEDS: ALBUTEROL SULFATE 8GM INHALER. INH PRN (12:25)
[2020-06-25 19:28] VITALS: BP 159/60
--- NOTE | 2020-06-25 19:40 | PN ---
DATE: 06/25/2020 SUBJECTIVE: The patient is resting in her chair comfortably in no apparent distress. On questioning her, she denied any complaints, in particular denied any cough or phlegm. Denied any shortness of breath. Denied any chills, rigors or fever. Nursing staff states that she has been very compliant and cooperative with care and medication. PHYSICAL EXAMINATION: GENERAL: When I examined her, she was somewhat pale, but no jaundice, cyanosis or thyromegaly. No jugular venous distention. No limb edema. VITAL SIGNS: Her heart rate was 64, blood pressure was 140/60, temperature was 97.8, respiratory rate was 20, and oxygen saturation was 97% on 5 liters of oxygen. HEENT: Showed normocephalic, atraumatic. NECK: Supple. CARDIAC: Normal first and second heart sounds. No gallop or murmur. CHEST: Clear to auscultation. No crepitation or rhonchi. ABDOMEN: Distended, soft, nontender. NEUROLOGIC: She is awake, alert, responding appropriately. All cranial nerves intact. She moves extremities without difficulty, although she is mostly chair bound. Her intake over the last 24 hours was 916, no output was recorded. LABORATORY DATA: No lab work done today, but her most recent lab work was unremarkable. ASSESSMENT: 1. This is a 70-year-old female with COVID-19 positive swabs from [facility] who continues to be completely asymptomatic. 2. Chronic obstructive pulmonary disease, on supplemental oxygen, stable. 3. Bipolar disorder, calm. 4. Essential hypertension. 5. Hyperlipidemia. PLAN: To continue her medication. She was swabbed again this afternoon and disposition will depend on the results with her test and also the criteria, [facility]. HORACIO RAMIREZ MD DR: SHAZIA/deana JOB#: [id number] / [id number]
[2020-06-25] MEDS: MONTELUKAST 10 MG TABLET. PO SCH (20:56)
[2020-06-25] MEDS: DIVALPROEX ER 500 MG TAB.ER.24H PO SCH (20:56)
[2020-06-25] MEDS: MELATONIN 3 MG TABLET PO SCH (20:57)
[2020-06-25] MEDS: DIVALPROEX ER 250 MG TAB.ER.24H. PO SCH (20:57)
[2020-06-25] MEDS: ZIPRASIDONE 80 MG CAPSULE. PO SCH (20:57)
[2020-06-25] MEDS: LOSARTAN 50 MG TABLET. PO SCH (20:57)
[2020-06-25] MEDS: HYDROcodone/APAP 5/325MG 1 TAB TABLET PO PRN (21:21)
[2020-06-26 08:11] VITALS: BP 155/56
[2020-06-26] MEDS: VITAMIN B COMPLEX CAPSULE. PO SCH (08:18)
[2020-06-26] MEDS: amLODIPine BESYLATE 5 MG TABLET PO SCH (08:18)
[2020-06-26] MEDS: CHOLECALCIFEROL (VITAMIN D3) 1,000 UNIT TABLET PO SCH (08:18)
[2020-06-26] MEDS: HYDROcodone/APAP 5/325MG 1 TAB TABLET PO PRN ×2 (08:19→21:07)
[2020-06-26] MEDS: FLUTICASONE/VILANTEROL 200/25 INHALER. INH SCH (08:33)
[2020-06-26] MEDS: ALBUTEROL SULFATE 8GM INHALER. INH PRN ×2 (08:33→12:29)
[2020-06-26] MEDS: ACETAMINOPHEN 500 MG TABLET PO PRN ×2 (12:22→20:15)
--- NOTE | 2020-06-26 17:29 | NUR ---
Pt is alert and oriented. Has been calm, pleasant and interactive. Pt compliant with medications. Lung sounds diminished. Pt disappointed to hear that her COVID test was still positive. Asking "what next". RN stated she wasn't sure, but that at some point she would be retested, just unsure of when. Pt stated, "well i might as well just move in!". WCTM.
[2020-06-26 19:30] VITALS: BP 123/43
[2020-06-26] MEDS: ZIPRASIDONE 80 MG CAPSULE. PO SCH (20:14)
[2020-06-26] MEDS: MELATONIN 3 MG TABLET PO SCH (20:14)
[2020-06-26] MEDS: DIVALPROEX ER 250 MG TAB.ER.24H. PO SCH (20:15)
[2020-06-26] MEDS: DIVALPROEX ER 500 MG TAB.ER.24H PO SCH (20:15)
[2020-06-26] MEDS: MONTELUKAST 10 MG TABLET. PO SCH (20:16)
[2020-06-26] MEDS: LOSARTAN 50 MG TABLET. PO SCH (20:16)
--- NOTE | 2020-06-27 04:24 | NUR ---
covid 19 swab done on 06-25-20 came back positive
--- NOTE | 2020-06-27 04:56 | PN ---
DATE: 06/26/2020 SUBJECTIVE: The patient is resting, slightly propped up in bed, in no apparent distress. On questioning her, denied any complaint. The nursing staff did not voice any concern and stated that she remains completely asymptomatic. PHYSICAL EXAMINATION: GENERAL: When I saw her this afternoon, she looked well and was clearly in no apparent respiratory distress. No pallor, jaundice, cyanosis or thyromegaly. No jugular venous distention. No limb edema. VITAL SIGNS: Her heart rate was 66, blood pressure 155/56, temperature 97, respiratory rate 20, and oxygen saturation 100% on 5 liters of oxygen. HEAD, EYES, EARS, NOSE AND THROAT: Showed normocephalic, atraumatic. NECK: Supple. CARDIAC: Normal first and second heart sounds. No gallop or murmur. CHEST: Shows central trachea, equal bilateral chest expansion, air entry, vesicular sounds. I could not really appreciate any crepitation or rhonchi. ABDOMEN: Slightly distended, soft, nontender. NEUROLOGIC: She was awake, alert, responding appropriately. All cranial nerves are intact. She moves extremities without difficulty. Her intake over the last 24 hours was 870, no output was recorded. Her COVID-19 by PCR was detected on the swab done yesterday. ASSESSMENT: 1. This is a 70-year-old female with COVID-19 positive swabs from [facility], but unfortunately, tested positive again on the swab done yesterday; however, she continues to be completely asymptomatic. 2. She is known to have chronic obstructive pulmonary disease that is oxygen dependent. 3. Bipolar disorder. The patient seems to be doing very well from that point of view. 4. Essential hypertension. 5. Hyperlipidemia. PLAN: Continue with all her medication, now that she has another positive COVID test means that she will probably have to be around for another week or so. HORACIO RAMIREZ MD DR: SHAZIA/deana JOB#: [id number] / [id number]
[2020-06-27 06:23] LABS: HEMATOCRIT 35.5 % (36.0-47.0); HEMOGLOBIN 11.7 g/dL (12.0-15.5); RED BLOOD COUNT 4.08 x10^6/uL (3.50-5.40); RED CELL DISTRIBUTION WIDTH 13.2 % (11.5-14.5); WHITE BLOOD COUNT 4.1 x10^3/uL (4.0-11.0)
[2020-06-27 06:49] LABS: ALBUMIN 2.5 g/dL (3.4-5.0); ALBUMIN/GLOBULIN RATIO 0.7 (1.0-1.7); CALCIUM 8.7 mg/dL (8.5-10.1); CREATININE 0.8 mg/dL (0.6-1.0); GFR 70.9; POTASSIUM 4.1 mmol/L (3.5-5.1); TOTAL BILIRUBIN 0.2 mg/dL (0.2-1.0); TOTAL PROTEIN 5.9 g/dL (6.4-8.2)
[2020-06-27 08:00] VITALS: BP 179/66
[2020-06-27] MEDS: CHOLECALCIFEROL (VITAMIN D3) 1,000 UNIT TABLET PO SCH (08:40)
[2020-06-27] MEDS: VITAMIN B COMPLEX CAPSULE. PO SCH (08:40)
[2020-06-27] MEDS: HYDROcodone/APAP 5/325MG 1 TAB TABLET PO PRN ×2 (08:41→21:21)
[2020-06-27] MEDS: amLODIPine BESYLATE 5 MG TABLET PO SCH (08:42)
[2020-06-27] MEDS: FLUTICASONE/VILANTEROL 200/25 INHALER. INH SCH (08:42)
[2020-06-27] MEDS: ACETAMINOPHEN 500 MG TABLET PO PRN (12:57)
[2020-06-27] MEDS: ALBUTEROL SULFATE 8GM INHALER. INH PRN (12:58)
[2020-06-27] MEDS: cloNIDine TTS-3 1 PATCH PATCH TD SCH (12:58)
[2020-06-27 19:40] VITALS: BP 124/52
--- NOTE | 2020-06-27 19:50 | PN ---
DATE: 06/27/2020 SUBJECTIVE: The patient is resting, slightly propped up in bed, no apparent distress. She is very pleasant, cooperative and compliant with care and medication. Unfortunately, she also tested positive for coronavirus again; however, she remained completely asymptomatic. PHYSICAL EXAMINATION: GENERAL: When I examined her, she was pale, but no jaundice, cyanosis or lymphadenopathy, no thyromegaly. No jugular venous distention. No lower limb edema. VITAL SIGNS: Her heart rate was 93, blood pressure was 179/66, temperature was 98, respiratory rate 24 and oxygen saturation was 95% on 3 liters of oxygen. HEAD, EYES, EARS, NOSE AND THROAT: Showed normocephalic, atraumatic. NECK: Supple. HEART: Showed normal first and second heart sounds. No gallop or murmur. CHEST: Clear to auscultation. No crepitation or rhonchi. ABDOMEN: Distended, soft, nontender. NEUROLOGIC: She is awake, alert, responding appropriately. All cranial nerves intact. She moves extremities without difficulty; although, she is mostly bedbound, chair bound. She is able to ambulate. Her intake over the last 24 hours was 1300, no output was recorded. LABORATORY DATA: Her lab work as of this morning showed a white cell count of 4100, hemoglobin 11.7, hematocrit 35.5, MCV 87, platelet count 279,000. Her serum sodium was 142, potassium 4.1, chloride 104, bicarbonate 37, anion gap of 1, BUN 7, creatinine 0.8, estimated GFR was 70 mL per minute, her glucose was 93, calcium was 8.7. Total bilirubin, AST, ALT, alkaline phosphatase were normal. Total protein was 5.9, albumin was 2.5. ASSESSMENT: 1. This is a 70-year-old female with COVID-19 positive originally at [facility]. Unfortunately, she tested positive again with the swab done yesterday; however, she continued to be completely asymptomatic. 2. She is known to have chronic obstructive pulmonary disease that is oxygen dependent. 3. Bipolar disorder. The patient seems to be doing very well from that point of view as initially was admitted with severe manic episode to the [facility] 4. Essential hypertension. 5. Hyperlipidemia. PLAN: To continue with all her psychotropic medications. HORACIO RAMIREZ MD DR: Kailey JOB#: [id number] / [id number]
[2020-06-27] MEDS: LOSARTAN 50 MG TABLET. PO SCH (21:14)
[2020-06-27] MEDS: MONTELUKAST 10 MG TABLET. PO SCH (21:15)
[2020-06-27] MEDS: MELATONIN 3 MG TABLET PO SCH (21:15)
[2020-06-27] MEDS: DIVALPROEX ER 500 MG TAB.ER.24H PO SCH (21:16)
[2020-06-27] MEDS: DIVALPROEX ER 250 MG TAB.ER.24H. PO SCH (21:17)
[2020-06-27] MEDS: ZIPRASIDONE 80 MG CAPSULE. PO SCH (21:27)
--- NOTE | 2020-06-28 06:39 | NUR ---
Pt in good spirits last night. After assessment and medications, pt slept soundly through the night. Pt c/o pain in her back-relieved with medication. Will continue to monitor.
[2020-06-28] MEDS: FLUTICASONE/VILANTEROL 200/25 INHALER. INH SCH (09:00)
[2020-06-28] MEDS: CHOLECALCIFEROL (VITAMIN D3) 1,000 UNIT TABLET PO SCH (09:25)
[2020-06-28] MEDS: VITAMIN B COMPLEX CAPSULE. PO SCH (09:25)
[2020-06-28] MEDS: amLODIPine BESYLATE 5 MG TABLET PO SCH (09:26)
[2020-06-28 09:59] VITALS: BP 132/58
--- NOTE | 2020-06-28 13:48 | PN ---
DATE: 06/28/2020 SUBJECTIVE: The patient is resting, slightly propped up in bed, in no apparent distress. On questioning her, she denied any complaint. The nursing staff did not voice any concerns that she has been very cooperative and compliant with care and medication. Her coronavirus PCR was detected again on 06/25/2020, but she continued to be completely asymptomatic. PHYSICAL EXAMINATION: GENERAL: When I examined her this afternoon, she looked well and was clearly in no apparent respiratory distress. No pallor, jaundice, cyanosis or thyromegaly. No jugular venous distention. No lower limb edema. VITAL SIGNS: Her heart rate was 72, blood pressure was 132/58, temperature 97.3, respiratory rate 20, and oxygen saturation was 97% on 4 liters of oxygen. The rest of clinical exam is stable, has not really changed. Her intake was 1080, no output was recorded. LABORATORY DATA: As of yesterday, her white cell count was 4000, hemoglobin 12, hematocrit 36, MCV 87 and platelet count 279,000. Serum sodium was 142, potassium 4.1, chloride 104, bicarbonate 37, anion gap of 1, BUN 7, creatinine 0.8, estimated GFR was 70 mL per minute. Her glucose was 93, calcium was 8.7. Total bilirubin, AST, ALT, alkaline phosphatase were normal. Total protein was 5.9, albumin was 2.5. ASSESSMENT: 1. This is a 70-year-old female with COVID-19 positive originally detected while at [facility]. Unfortunately, she tested positive again on the swab done on 06/25/2020, however, she continued to be completely asymptomatic. 2. She is known to have chronic obstructive pulmonary disease that is oxygen dependent. 3. Bipolar disorder. The patient seems to be doing very well, as she was initially admitted with severe manic episode for the [facility]. 4. Essential hypertension. 5. Hyperlipidemia. PLAN: To continue with oxygen supplementation, continue with all her psychotropic medications. HORACIO RAMIREZ MD DR: SHAZIA/deana JOB#: [id number] / [id number]
--- NOTE | 2020-06-28 16:17 | NUR ---
Patient awake in bed at shift change. Patient pleasant and cooperative with medication administration and assessment. No behaviors noted at this time. Patient stated she was not having back pain even though she hadn't had any pain medication. She stated "I thought I should be in bed so my back wouldn't hurt but it feels pretty good sitting in the chair." VSS. Will continue to monitor.
[2020-06-28 19:50] VITALS: BP 126/51
[2020-06-28] MEDS: MELATONIN 3 MG TABLET PO SCH (20:42)
[2020-06-28] MEDS: ZIPRASIDONE 80 MG CAPSULE. PO SCH (20:42)
[2020-06-28] MEDS: DIVALPROEX ER 500 MG TAB.ER.24H PO SCH (20:42)
[2020-06-28] MEDS: LOSARTAN 50 MG TABLET. PO SCH (20:43)
[2020-06-28] MEDS: MONTELUKAST 10 MG TABLET. PO SCH (20:43)
[2020-06-28] MEDS: DIVALPROEX ER 250 MG TAB.ER.24H. PO SCH (20:43)
[2020-06-28] MEDS: HYDROcodone/APAP 5/325MG 1 TAB TABLET PO PRN (20:44)
[2020-06-29] MEDS: VITAMIN B COMPLEX CAPSULE. PO SCH (07:49)
[2020-06-29] MEDS: CHOLECALCIFEROL (VITAMIN D3) 1,000 UNIT TABLET PO SCH (07:49)
[2020-06-29] MEDS: DOCUSATE SODIUM 100 MG CAPSULE PO PRN (07:49)
[2020-06-29] MEDS: ALBUTEROL SULFATE 8GM INHALER. INH PRN ×2 (07:50→17:40)
[2020-06-29] MEDS: FLUTICASONE/VILANTEROL 200/25 INHALER. INH SCH (07:50)
[2020-06-29] MEDS: ACETAMINOPHEN 500 MG TABLET PO PRN (07:50)
[2020-06-29] MEDS: amLODIPine BESYLATE 5 MG TABLET PO SCH (08:02)
[2020-06-29 08:39] VITALS: BP 140/59
--- NOTE | 2020-06-29 17:23 | NUR ---
NSG NOTE;GOOD DAY PT HAS HAD A GOOD DAY TODAY-CALM AND COOPERATIVE. SHE WAS GIVEN TYLENOL IN THE AM FOR MILD BACK PAIN WHICH HAS IMPROVED.
[2020-06-29 19:32] VITALS: BP 141/52
--- NOTE | 2020-06-29 19:49 | PN ---
DATE: 06/29/2020 SUBJECTIVE: The patient is sitting in her chair comfortably in no apparent distress. On questioning her, she denied any complaint. The nursing staff did not voice any concerns that she has been very pleasant, compliant and cooperative with care and medication. OBJECTIVE: GENERAL: On examining her, she looked well and was clearly in no apparent respiratory distress, slightly pale, but no jaundice, cyanosis or thyromegaly. No jugular venous distention. No limb edema. VITAL SIGNS: Her heart rate was 63, blood pressure was 140/59, temperature was 97, respiratory rate was 20, and oxygen saturation was 98% on 4 liters of oxygen. HEAD, EYES, EARS, NOSE, AND THROAT: Showed normocephalic, atraumatic. NECK: Supple. CARDIAC: Normal first and second heart sounds. No gallop or murmur. CHEST: Shows central trachea, equally reduced expansion, reduced air entry, vesicular sounds. No crepitation or rhonchi. ABDOMEN: Slightly distended, soft, nontender. NEUROLOGIC: She is awake, alert, responding appropriately. All cranial nerves intact. She moves extremities without difficulty. Her intake over the last 24 hours was 680. No output was recorded. LABORATORY DATA: Her most recent lab work showed a white cell count 4100, hemoglobin 11.7, hematocrit 35.5, MCV 87 and platelet count 279,000. Her chemistry showed a serum sodium of 142, potassium 4.1, chloride 104, bicarbonate 37, anion gap of 1, BUN 7, creatinine 0.8, estimated GFR was 71 mL per minute. Her glucose was 893, calcium was 8.7. Total bilirubin, AST, ALT, alkaline phosphatase were normal. Total protein was 5.9, albumin was 2.5. ASSESSMENT: 1. This is a 70-year-old female patient with COVID-19 positive originally detected while at [facility]. Unfortunately, she tested positive again on the swab done on 05/29/2020, however, she continued to be completely asymptomatic. 2. She is known to have chronic obstructive pulmonary disease that is oxygen dependent. 3. Bipolar disorder. The patient seems to be doing very well. She was admitted initially with severe manic episode to [facility]. 4. Essential hypertension. 5. Hyperlipidemia. PLAN: To continue with oxygen supplementation. Continue with oral psychotropic medication. HORACIO RAMIREZ MD DR: Kailey JOB#: [id number] / [id number]
[2020-06-29] MEDS: ZIPRASIDONE 80 MG CAPSULE. PO SCH (19:57)
[2020-06-29] MEDS: LOSARTAN 50 MG TABLET. PO SCH (19:57)
[2020-06-29] MEDS: DIVALPROEX ER 250 MG TAB.ER.24H. PO SCH (19:57)
[2020-06-29] MEDS: MONTELUKAST 10 MG TABLET. PO SCH (19:57)
[2020-06-29] MEDS: MELATONIN 3 MG TABLET PO SCH (19:57)
[2020-06-29] MEDS: HYDROcodone/APAP 5/325MG 1 TAB TABLET PO PRN (19:58)
[2020-06-29] MEDS: DIVALPROEX ER 500 MG TAB.ER.24H PO SCH (19:58)
[2020-06-30 07:38] VITALS: BP 122/55
[2020-06-30 07:40] VITALS: BP 127/55
[2020-06-30] MEDS: FLUTICASONE/VILANTEROL 200/25 INHALER. INH SCH (09:00)
[2020-06-30] MEDS: VITAMIN B COMPLEX CAPSULE. PO SCH (09:10)
[2020-06-30] MEDS: CHOLECALCIFEROL (VITAMIN D3) 1,000 UNIT TABLET PO SCH (09:10)
[2020-06-30] MEDS: amLODIPine BESYLATE 5 MG TABLET PO SCH (09:11)
[2020-06-30 19:21] VITALS: BP 141/64
--- NOTE | 2020-06-30 19:25 | PN ---
DATE: 06/30/2020 SUBJECTIVE: The patient is resting, slightly propped up in bed, in no apparent respiratory distress. She stated that she has been in bed for the last 3 days as her back pain is severe and cannot sit in the chair like used to do before, but denied any other complaints. PHYSICAL EXAMINATION: GENERAL: When I examined her, she was pale, not jaundiced, cyanosed, or thyromegaly. No jugular venous distension. No limb edema. VITAL SIGNS: Her heart rate was 59, blood pressure was 127/55, temperature 97.1, respiratory rate 20, and oxygen saturation 100% on 4 liters of oxygen. HEENT: Showed normocephalic, atraumatic. NECK: Supple. CARDIAC: Normal first and second heart sounds. No gallop, rub or murmur. CHEST: Clear to auscultation. No crepitation or rhonchi. ABDOMEN: Distended, soft, nontender. NEUROLOGIC: She was awake, alert, responding appropriately. All cranial nerves are intact. She moves extremities without difficulty, although she is mostly bedbound, chair bound. Her intake was 714, no output was recorded. No lab works available for today. ASSESSMENT: 1. This is a 70-year-old female patient with COVID-19 positive, originally detected while at [facility]. Unfortunately, she tested positive again on the swab done on 06/25/2020. However, she continued to be completely asymptomatic. 2. She is known to have chronic obstructive pulmonary disease that is oxygen dependent. 3. Bipolar disorder. The patient seems to be doing very well. She was admitted initially with severe manic episode to [facility]. 4. Chronic intractable back pain. 5. Essential hypertension. 6. Hyperlipidemia. PLAN: To continue supplementation, continue with all her psychotropic medication. I will add Lidoderm patches to her back on at 8:00 and off at 8:00 in the evening. HORACIO RAMIREZ MD DR: SHAZIA/deana JOB#: [id number] / [id number]
[2020-06-30] MEDS: MELATONIN 3 MG TABLET PO SCH (20:48)
[2020-06-30] MEDS: MONTELUKAST 10 MG TABLET. PO SCH (20:49)
[2020-06-30] MEDS: DIVALPROEX ER 250 MG TAB.ER.24H. PO SCH (20:49)
[2020-06-30] MEDS: traMADol 50 MG TABLET PO PRN (20:49)
[2020-06-30] MEDS: LOSARTAN 50 MG TABLET. PO SCH (20:49)
[2020-06-30] MEDS: DIVALPROEX ER 500 MG TAB.ER.24H PO SCH (20:49)
[2020-06-30] MEDS: ZIPRASIDONE 80 MG CAPSULE. PO SCH (20:49)
[2020-06-30] MEDS: HYDROcodone/APAP 5/325MG 1 TAB TABLET PO PRN (21:13)
[2020-07-01 07:28] VITALS: BP 163/60
[2020-07-01] MEDS: LIDOCAINE (700MG/PATCH) PATCH. TD SCH (08:30)
[2020-07-01] MEDS: HYDROcodone/APAP 5/325MG 1 TAB TABLET PO PRN ×2 (08:30→20:44)
[2020-07-01] MEDS: FLUTICASONE/VILANTEROL 200/25 INHALER. INH SCH (08:30)
[2020-07-01] MEDS: CHOLECALCIFEROL (VITAMIN D3) 1,000 UNIT TABLET PO SCH (08:30)
[2020-07-01] MEDS: VITAMIN B COMPLEX CAPSULE. PO SCH (08:30)
[2020-07-01] MEDS: amLODIPine BESYLATE 5 MG TABLET PO SCH (08:30)
--- NOTE | 2020-07-01 10:03 | PN ---
DATE: 07/01/2020 ATTENDING PHYSICIAN: Dr. Doran. SUBJECTIVE: No new complaints. Back pain is better. She denied any new symptoms. She is in good spirits and we had a nice conversation. OBJECTIVE FINDINGS: VITAL SIGNS: Blood pressure today is 163/60 mmHg, pulse is 60 and regular, temperature 98.5 degrees Fahrenheit, and oxygen saturation 98% on 3 liters by nasal cannula. HEENT: Head is without trauma. Pupils are reactive. Sclerae nonicteric. Oropharynx is clear. NECK: Supple, no bruits identified. LUNGS: Otherwise clear. CARDIOVASCULAR: Regular heart tones. No gallops. Peripheral pulses palpable and full. ABDOMEN: Soft, scaphoid, nontender, no organomegaly. Bowel sounds are hypoactive. EXTREMITIES: Show no cyanosis or edema. NEUROLOGIC: Focally intact. Speech is fluent. SKIN: Warm and dry. ASSESSMENT: 1. A 70-year-old female with COVID-19 positive swab detected [facility]. She is asymptomatic. She tested again positive on 06/25/2020. 2. Known chronic obstructive pulmonary disease, oxygen dependent. 3. Bipolar disorder, stable. 4. Chronic intractable low back pain, improved. 5. Essential hypertension. 6. Hyperlipidemia. PLAN: 1. Lidoderm patch is not that beneficial. She wants it off. 2. Continue same meds as prescribed. 3. Followup swabs as indicated. TAMI BE MD DR: KELIN/deana JOB#: [id number] / [id number]
[2020-07-01 19:45] VITALS: BP 111/51
[2020-07-01] MEDS: ZIPRASIDONE 80 MG CAPSULE. PO SCH (20:42)
[2020-07-01] MEDS: PATCH REMOVAL. MC SCH (20:42)
[2020-07-01] MEDS: MELATONIN 3 MG TABLET PO SCH (20:42)
[2020-07-01] MEDS: LOSARTAN 50 MG TABLET. PO SCH (20:43)
[2020-07-01] MEDS: DIVALPROEX ER 250 MG TAB.ER.24H. PO SCH (20:43)
[2020-07-01] MEDS: MONTELUKAST 10 MG TABLET. PO SCH (20:43)
[2020-07-01] MEDS: DIVALPROEX ER 500 MG TAB.ER.24H PO SCH (20:43)
--- NOTE | 2020-07-02 06:18 | NUR ---
PT compliant with medications, assessment and cares. PT tolerated COVID testing well.
[2020-07-02] MEDS: CHOLECALCIFEROL (VITAMIN D3) 1,000 UNIT TABLET PO SCH (08:39)
[2020-07-02] MEDS: LIDOCAINE (700MG/PATCH) PATCH. TD SCH (08:39)
[2020-07-02] MEDS: VITAMIN B COMPLEX CAPSULE. PO SCH (08:39)
[2020-07-02] MEDS: amLODIPine BESYLATE 5 MG TABLET PO SCH (08:40)
[2020-07-02] MEDS: FLUTICASONE/VILANTEROL 200/25 INHALER. INH SCH (08:40)
[2020-07-02 09:00] VITALS: BP 134/55
--- NOTE | 2020-07-02 11:30 | NUR ---
PATIENT IS NICE AND PLEASANT WITH STAFF, INTERACTIVE DURING ASSESSMENT, STATED SHE FEELS LIKE SHE IS GETTING ADJUSTED TO THE SITUATION OF BEING HERE ON ISOLATION, DENIED PAIN AT THIS TIME. WILL CONTINUE TO MONITOR.
--- NOTE | 2020-07-02 13:05 | PN ---
DATE: 07/02/2020 ATTENDING PHYSICIAN: Dr. Be. SUBJECTIVE: No new complaints. She is comfortable. She denies any shortness of breath. She is wearing her oxygen. She is in fairly good spirits. OBJECTIVE FINDINGS: VITAL SIGNS: Blood pressure is 134/55, pulse 68 and regular, temperature 98.1 degrees Fahrenheit, oxygen saturation 98% on 3 liters of nasal cannula. HEENT: Head is without trauma. Pupils are reactive. Sclerae nonicteric. Oropharynx clear. NECK: Supple, no bruits. LUNGS: Clear with good breath sounds. CARDIOVASCULAR: Showed regular heart tones. No obvious gallops. Peripheral pulses are palpable and full. ABDOMEN: Soft, nontender, no organomegaly, normal bowel sounds. EXTREMITIES: Showed no cyanosis or edema. NEUROLOGIC: Focally intact. Speech is fluent. SKIN: Warm and dry. ASSESSMENT: 1. A 70-year-old female with COVID-19 positive swabs detected on the [facility]. She is asymptomatic. 2. Known chronic obstructive pulmonary disease, oxygen dependent. 3. Bipolar disorder, stable. 4. Chronic low back pain, improved. 5. Essential hypertension. 6. Hyperlipidemia. PLAN: 1. Continue same meds as ordered. 2. Diet as tolerated. 3. Followup swabs as appropriate. 4. We are working on placement. TAMI BE MD DR: KELIN/deana JOB#: [id number] / [id number]
[2020-07-02 18:45] VITALS: BP 132/56
[2020-07-02] MEDS: PATCH REMOVAL. MC SCH (21:00)
[2020-07-02] MEDS: ZIPRASIDONE 80 MG CAPSULE. PO SCH (21:25)
[2020-07-02] MEDS: MELATONIN 3 MG TABLET PO SCH (21:25)
[2020-07-02] MEDS: HYDROcodone/APAP 5/325MG 1 TAB TABLET PO PRN (21:25)
[2020-07-02] MEDS: DIVALPROEX ER 500 MG TAB.ER.24H PO SCH (21:25)
[2020-07-02] MEDS: DIVALPROEX ER 250 MG TAB.ER.24H. PO SCH (21:25)
[2020-07-02] MEDS: MONTELUKAST 10 MG TABLET. PO SCH (21:26)
[2020-07-02] MEDS: LOSARTAN 50 MG TABLET. PO SCH (21:26)
[2020-07-03] MEDS: amLODIPine BESYLATE 5 MG TABLET PO SCH (07:49)
[2020-07-03] MEDS: CHOLECALCIFEROL (VITAMIN D3) 1,000 UNIT TABLET PO SCH (07:49)
[2020-07-03] MEDS: VITAMIN B COMPLEX CAPSULE. PO SCH (07:50)
[2020-07-03] MEDS: LIDOCAINE (700MG/PATCH) PATCH. TD SCH (07:50)
[2020-07-03] MEDS: FLUTICASONE/VILANTEROL 200/25 INHALER. INH SCH (09:00)
[2020-07-03] MEDS: ALBUTEROL SULFATE 8GM INHALER. INH PRN (09:11)
[2020-07-03 11:34] VITALS: BP 133/62
--- NOTE | 2020-07-03 14:42 | PN ---
DATE: 07/03/2020 SUBJECTIVE: The patient is alert, comfortable without any new complaints. She is inquiring about her repeat COVID-19 coronavirus swab. OBJECTIVE FINDINGS: VITAL SIGNS: Blood pressure today is 133/62, pulse is 63 and regular, temperature 97.5 degrees Fahrenheit, and her oxygen saturations are 98% on 3 liters by nasal cannula. HEENT: Head is without trauma. Pupils are reactive. Sclerae nonicteric. Oropharynx clear. NECK: Supple. LUNGS: Otherwise clear without any wheezing or rales. CARDIOVASCULAR: Showed regular heart tones. No gallops. ABDOMEN: Soft, scaphoid, nontender, no organomegaly. Bowel sounds are hypoactive. EXTREMITIES: Showed trace edema. NEUROLOGIC: Focally intact. Speech is fluent. No focal deficits. ASSESSMENT: 1. A 70-year-old female with COVID-19 positive swabs on the [facility]. She is totally asymptomatic. 2. Known chronic obstructive pulmonary disease, stable. 3. Bipolar disorder, stable. 4. Chronic low back pain, improved. 5. Essential hypertension. 6. Hyperlipidemia. PLAN: 1. Continue meds as ordered. 2. Await results of most recent coronavirus swab. 3. We are working on placement. TAMI BE MD DR: KELIN/deana JOB#: [id number] / [id number]
[2020-07-03 20:18] VITALS: BP 143/57
[2020-07-03] MEDS: PATCH REMOVAL. MC SCH (21:00)
[2020-07-03] MEDS: ZIPRASIDONE 80 MG CAPSULE. PO SCH (21:34)
[2020-07-03] MEDS: DIVALPROEX ER 500 MG TAB.ER.24H PO SCH (21:34)
[2020-07-03] MEDS: DIVALPROEX ER 250 MG TAB.ER.24H. PO SCH (21:35)
[2020-07-03] MEDS: LOSARTAN 50 MG TABLET. PO SCH (21:35)
[2020-07-03] MEDS: MELATONIN 3 MG TABLET PO SCH (21:36)
[2020-07-03] MEDS: MONTELUKAST 10 MG TABLET. PO SCH (21:36)
[2020-07-03] MEDS: HYDROcodone/APAP 5/325MG 1 TAB TABLET PO PRN (21:41)
--- NOTE | 2020-07-04 05:29 | NUR ---
Pt cooperative and engaged with evening cares. Pt spoke with family on the telephone tonight. She is sleeping soundly. Will continue to monitor.
[2020-07-04] MEDS: ACETAMINOPHEN 500 MG TABLET PO PRN (07:48)
[2020-07-04] MEDS: CHOLECALCIFEROL (VITAMIN D3) 1,000 UNIT TABLET PO SCH (07:48)
[2020-07-04] MEDS: VITAMIN B COMPLEX CAPSULE. PO SCH (07:48)
[2020-07-04] MEDS: LIDOCAINE (700MG/PATCH) PATCH. TD SCH (07:48)
[2020-07-04] MEDS: amLODIPine BESYLATE 5 MG TABLET PO SCH (07:48)
[2020-07-04] MEDS: FLUTICASONE/VILANTEROL 200/25 INHALER. INH SCH (07:49)
[2020-07-04] MEDS: cloNIDine TTS-3 1 PATCH PATCH TD SCH (07:51)
[2020-07-04 08:21] VITALS: BP 121/53
--- NOTE | 2020-07-04 11:56 | PN ---
DATE: 07/04/2020 ATTENDING PHYSICIAN: Dr. Be. SUBJECTIVE: No new complaints. She is comfortable. She inquired about her COVID-19 swab. Unfortunately, repeat swab on 07/02/2020 is still positive. OBJECTIVE FINDINGS: VITAL SIGNS: Blood pressure today is 121/53, oxygen saturation 99% on 3 liters of nasal cannula, pulse 67 and regular, temperature 97.1 degrees Fahrenheit. HEENT: Head is without trauma. Pupils are reactive. Sclerae is nonicteric. Oropharynx is clear. NECK: Supple, no bruits identified. LUNGS: Otherwise clear with good breath sounds. CARDIOVASCULAR: Showed regular heart tones. No gallops. Peripheral pulses are palpable and full. ABDOMEN: Soft, scaphoid, nontender. EXTREMITIES: Showed no cyanosis or edema. NEUROLOGIC: Focally intact. No deficit. SKIN: Warm and dry. ASSESSMENT: 1. A 70-year-old female with COVID-19 positive swab in the [facility]. She remains totally asymptomatic. 2. Known chronic obstructive pulmonary disease, oxygen dependent, stable. 3. Bipolar disorder, controlled. 4. Chronic back pain, managed. 5. Essential hypertension, currently normotensive. 6. Hyperlipidemia. PLAN: 1. Continue same meds. 2. We are working on placement. Unfortunately, she will need consecutive negative swabs before placement can occur. This will be ordered in the appropriate sequence. TAMI BE MD DR: KELIN/deana JOB#: [id number] / [id number]
[2020-07-04 20:37] VITALS: BP 132/57
[2020-07-04] MEDS: PATCH REMOVAL. MC SCH (21:00)
[2020-07-04] MEDS: MONTELUKAST 10 MG TABLET. PO SCH (21:30)
[2020-07-04] MEDS: DIVALPROEX ER 500 MG TAB.ER.24H PO SCH (21:31)
[2020-07-04] MEDS: DIVALPROEX ER 250 MG TAB.ER.24H. PO SCH (21:31)
[2020-07-04] MEDS: MELATONIN 3 MG TABLET PO SCH (21:31)
[2020-07-04] MEDS: DOCUSATE SODIUM 100 MG CAPSULE PO PRN (21:32)
[2020-07-04] MEDS: LOSARTAN 50 MG TABLET. PO SCH (21:32)
[2020-07-04] MEDS: HYDROcodone/APAP 5/325MG 1 TAB TABLET PO PRN (21:32)
[2020-07-04] MEDS: ZIPRASIDONE 80 MG CAPSULE. PO SCH (21:37)
--- NOTE | 2020-07-05 04:23 | NUR ---
Pt pleasant and cooperative this evening. She requested Colace for constipation. Resting soundly this evening. Will continue to monitor.
[2020-07-05] MEDS: CHOLECALCIFEROL (VITAMIN D3) 1,000 UNIT TABLET PO SCH (07:46)
[2020-07-05] MEDS: amLODIPine BESYLATE 5 MG TABLET PO SCH (07:47)
[2020-07-05] MEDS: VITAMIN B COMPLEX CAPSULE. PO SCH (07:47)
[2020-07-05] MEDS: LIDOCAINE (700MG/PATCH) PATCH. TD SCH ×2 (07:48→21:45)
[2020-07-05 08:30] VITALS: BP 157/77
[2020-07-05] MEDS: FLUTICASONE/VILANTEROL 200/25 INHALER. INH SCH (09:00)
--- NOTE | 2020-07-05 11:37 | PN ---
DATE: 07/05/2020 ATTENDING PHYSICIAN: Dr. Be. SUBJECTIVE: No new complaints. She is quite comfortable. She is eating well. She is using her supplemental oxygen. OBJECTIVE FINDINGS: VITAL SIGNS: Blood pressure today is 132/57 mmHg, oxygen saturation 96% on 3 liters nasal cannula, pulse is 63 and regular, temperature 97.7 degrees Fahrenheit. HEENT: Head is without trauma. Pupils are reactive. Sclerae nonicteric. Oropharynx is clear. NECK: Supple, no bruits identified. LUNGS: Otherwise clear. CARDIOVASCULAR: Showed regular heart tones. No obvious gallops or murmurs. Peripheral pulses are palpable and full. ABDOMEN: Soft, scaphoid, nontender. Bowel sounds are normoactive. EXTREMITIES: Showed no cyanosis or edema. NEUROLOGIC: Focally intact. No deficits. SKIN: Warm and dry. ASSESSMENT: 1. A 70-year-old female with COVID-19 positive swab in the [facility]. She continues to remain totally asymptomatic. 2. Known chronic obstructive pulmonary disease, oxygen dependent, stable. 3. Bipolar disorder, controlled. 4. Chronic back pain, controlled. 5. Essential hypertension. 6. Hyperlipidemia. PLAN: 1. Continue same meds as prescribed. 2. We are working on placement. Unfortunately, we will need consecutive negative swabs before facilities can take. TAMI BE MD DR: KELIN/deana JOB#: [id number] / [id number]
[2020-07-05 18:41] VITALS: BP 133/57
[2020-07-05 20:27] VITALS: BP 145/60
[2020-07-05] MEDS: DIVALPROEX ER 500 MG TAB.ER.24H PO SCH (20:35)
[2020-07-05] MEDS: MELATONIN 3 MG TABLET PO SCH (20:35)
[2020-07-05] MEDS: DIVALPROEX ER 250 MG TAB.ER.24H. PO SCH (20:35)
[2020-07-05] MEDS: LOSARTAN 50 MG TABLET. PO SCH (20:35)
[2020-07-05] MEDS: ZIPRASIDONE 80 MG CAPSULE. PO SCH (20:35)
[2020-07-05] MEDS: MONTELUKAST 10 MG TABLET. PO SCH (20:35)
[2020-07-05] MEDS: HYDROcodone/APAP 5/325MG 1 TAB TABLET PO PRN (20:36)
[2020-07-05] MEDS: PATCH REMOVAL. MC SCH (20:36)
--- NOTE | 2020-07-05 21:46 | NUR ---
PT laying in bed at time of assessment, got up, walked around bed to sit at side table for assessment and medication administration. PT exhibited no SOB with exertion at this time but states she still gets short of breath when walking to bathroom. PT at 3L O2 per NC. PT calm, cooperative and pleasant with all cares. PT stated she did not want Lidoderm patches.
[2020-07-06] MEDS: FLUTICASONE/VILANTEROL 200/25 INHALER. INH SCH (07:53)
[2020-07-06] MEDS: ALBUTEROL SULFATE 8GM INHALER. INH PRN (07:53)
[2020-07-06] MEDS: amLODIPine BESYLATE 5 MG TABLET PO SCH (07:53)
[2020-07-06] MEDS: VITAMIN B COMPLEX CAPSULE. PO SCH (07:53)
[2020-07-06] MEDS: CHOLECALCIFEROL (VITAMIN D3) 1,000 UNIT TABLET PO SCH (07:53)
[2020-07-06 08:57] VITALS: BP 160/73
--- NOTE | 2020-07-06 12:07 | PN ---
DATE: 07/06/2020 ATTENDING PHYSICIAN: Dr. Be. SUBJECTIVE: The patient is calm, alert. She has no new complaints. She is doing well and accepting the fact that she is in quarantine. OBJECTIVE FINDINGS: VITAL SIGNS: Her blood pressure today is 145/60 mmHg, temperature 97.0 degrees Fahrenheit, oxygen saturation 99% on 3 liters of nasal cannula and her pulse is 68 and regular. HEENT: Head is without trauma. The pupils are reactive. Sclerae is nonicteric. Oropharynx is clear. NECK: Supple. No stridor or bruits. LUNGS: Actually clear to auscultation. CARDIOVASCULAR: Showed regular heart tones. No gallops. Peripheral pulses are palpable and full. ABDOMEN: Soft, scaphoid, nontender, no organomegaly. Bowel sounds are normoactive. EXTREMITIES: Showed no cyanosis or edema. NEUROLOGIC: Focally intact. No deficits. SKIN: Warm and dry. ASSESSMENT: 1. A 70-year-old female with COVID-19 positive swabs in the [facility]. She remains so far totally asymptomatic. 2. Known chronic obstructive pulmonary disease that is oxygen dependent, stable. 3. Bipolar disorder, controlled. 4. Chronic low back pain, improved. 5. Essential hypertension. PLAN: 1. Continue medications prescribed. 2. We are still working on placement. Unfortunately, we will need consecutive negative swabs before the facility can take her. Her last swab still remained positive. TAMI BE MD DR: KELIN/deana JOB#: [id number] / [id number]
[2020-07-06] MEDS: PATCH REMOVAL. MC SCH (20:04)
[2020-07-06 20:25] VITALS: BP 175/75
[2020-07-06] MEDS: ZIPRASIDONE 80 MG CAPSULE. PO SCH (20:26)
[2020-07-06] MEDS: MONTELUKAST 10 MG TABLET. PO SCH (20:27)
[2020-07-06] MEDS: DIVALPROEX ER 250 MG TAB.ER.24H. PO SCH (20:27)
[2020-07-06] MEDS: MELATONIN 3 MG TABLET PO SCH (20:27)
[2020-07-06] MEDS: DIVALPROEX ER 500 MG TAB.ER.24H PO SCH (20:27)
[2020-07-06] MEDS: HYDROcodone/APAP 5/325MG 1 TAB TABLET PO PRN (20:28)
[2020-07-06] MEDS: LOSARTAN 50 MG TABLET. PO SCH (20:28)
--- NOTE | 2020-07-06 23:47 | NUR ---
PT calm and cooperative on assessment and medication administration.
[2020-07-07] MEDS: VITAMIN B COMPLEX CAPSULE. PO SCH (07:39)
[2020-07-07] MEDS: amLODIPine BESYLATE 5 MG TABLET PO SCH (07:39)
[2020-07-07] MEDS: CHOLECALCIFEROL (VITAMIN D3) 1,000 UNIT TABLET PO SCH (07:39)
[2020-07-07] MEDS: FLUTICASONE/VILANTEROL 200/25 INHALER. INH SCH (07:39)
[2020-07-07] MEDS: LIDOCAINE (700MG/PATCH) PATCH. TD SCH (08:00)
[2020-07-07 08:25] VITALS: BP 162/72
--- NOTE | 2020-07-07 11:56 | PN ---
DATE: 07/07/2020 ATTENDING PHYSICIAN: Dr. Be. SUBJECTIVE: No new complaints. She is calm. She denies any pain or shortness of breath. OBJECTIVE FINDINGS: VITAL SIGNS: Her blood pressure today is 162/70, pulse 66 and regular, temperature 98.1 degrees Fahrenheit, oxygen saturation 98% on 3 liters of nasal cannula. HEENT: Head is without trauma. Pupils are reactive. Sclerae nonicteric. Oropharynx clear. NECK: Supple. LUNGS: Good breath sounds. CARDIOVASCULAR: Showed regular heart tones. No gallops. ABDOMEN: Soft, no guarding. EXTREMITIES: Showed no cyanosis or edema. NEUROLOGIC: Focally intact. SKIN: Warm and dry. ASSESSMENT: 1. A 70-year-old female with COVID-19 positive swabs on the [facility]. She remains asymptomatic. 2. Known chronic obstructive pulmonary disease, oxygen dependent. 3. Bipolar disorder, controlled. 4. Chronic low back pain. 5. Essential hypertension. PLAN: 1. Meds reviewed and continued. 2. We are still working on placement. Despite the fact that she is asymptomatic, she is still testing positive on previous swabs. TAMI BE MD DR: KELIN/deana JOB#: [id number] / [id number]
[2020-07-07 18:59] VITALS: BP 122/64
[2020-07-07] MEDS: MELATONIN 3 MG TABLET PO SCH (20:44)
[2020-07-07] MEDS: DIVALPROEX ER 500 MG TAB.ER.24H PO SCH (20:44)
[2020-07-07] MEDS: DIVALPROEX ER 250 MG TAB.ER.24H. PO SCH (20:44)
[2020-07-07] MEDS: LOSARTAN 50 MG TABLET. PO SCH (20:45)
[2020-07-07] MEDS: MONTELUKAST 10 MG TABLET. PO SCH (20:45)
[2020-07-07] MEDS: HYDROcodone/APAP 5/325MG 1 TAB TABLET PO PRN (20:45)
[2020-07-07] MEDS: PATCH REMOVAL. MC SCH (20:45)
[2020-07-07] MEDS: ZIPRASIDONE 80 MG CAPSULE. PO SCH (20:47)
--- NOTE | 2020-07-08 07:07 | NUR ---
Pt calm and cooperative with meds and assessment. Slept well through noc. No behaviors noted.
[2020-07-08] MEDS: LIDOCAINE (700MG/PATCH) PATCH. TD SCH (08:00)
[2020-07-08 08:47] VITALS: BP 196/64
[2020-07-08] MEDS: VITAMIN B COMPLEX CAPSULE. PO SCH (08:49)
[2020-07-08] MEDS: ACETAMINOPHEN 500 MG TABLET PO PRN (08:49)
[2020-07-08] MEDS: CHOLECALCIFEROL (VITAMIN D3) 1,000 UNIT TABLET PO SCH (08:49)
[2020-07-08] MEDS: amLODIPine BESYLATE 5 MG TABLET PO SCH (08:50)
[2020-07-08] MEDS: FLUTICASONE/VILANTEROL 200/25 INHALER. INH SCH (08:50)
--- NOTE | 2020-07-08 19:31 | PN ---
DATE: 07/08/2020 SUBJECTIVE: The patient is resting, slightly propped up in bed, in no apparent respiratory distress. On questioning her, she denied any complaints. The nursing staff did not voice any concern. She continued to be positive for coronavirus. Despite this, she is completely asymptomatic. PHYSICAL EXAMINATION: GENERAL: When I examined her, she looked well and was clearly in no apparent respiratory distress, pale, no jaundice, cyanosis or thyromegaly. No jugular venous distention. No limb edema. VITAL SIGNS: Her heart rate was 111, blood pressure was 196/64, temperature was 98.5, respiratory rate was 18 and oxygen saturation was 97% on 2 liters of oxygen. HEAD, EYES, EARS, NOSE, AND THROAT: Showed normocephalic and atraumatic. NECK: Supple. HEART: Showed normal first and second heart sounds. No gallop, rub or murmur. CHEST: Clear to auscultation. No crepitation or rhonchi. ABDOMEN: Distended, soft, nontender. NEUROLOGIC: She was grossly intact. Her intake over the last 24 hours was 1320 and no output was recorded. No recent lab work done except that her coronavirus by PCR was positive. ASSESSMENT: 1. A 70-year-old with COVID-19 positive swabs, [facility] the [facility], and here again on 07/01/2020. She remains completely asymptomatic. 2. Chronic obstructive pulmonary disease that is oxygen dependent. 3. Bipolar disorder, controlled. 4. Chronic low back pain. 5. Essential hypertension. PLAN: Continue with all her current medications. The patient needs to be tested on a regular basis. Once she has 2 consecutive negative for COVID-19 test, she can be placed in a halfway facility. HORACIO RAMIREZ MD DR: SHAZIA/deana JOB#: [id number] / [id number]
[2020-07-08 20:00] VITALS: BP 145/58
[2020-07-08] MEDS: DIVALPROEX ER 500 MG TAB.ER.24H PO SCH (20:38)
[2020-07-08] MEDS: HYDROcodone/APAP 5/325MG 1 TAB TABLET PO PRN (20:38)
[2020-07-08] MEDS: PATCH REMOVAL. MC SCH (20:38)
[2020-07-08] MEDS: DIVALPROEX ER 250 MG TAB.ER.24H. PO SCH (20:38)
[2020-07-08] MEDS: LOSARTAN 50 MG TABLET. PO SCH (20:39)
[2020-07-08] MEDS: ZIPRASIDONE 80 MG CAPSULE. PO SCH (20:39)
[2020-07-08] MEDS: MONTELUKAST 10 MG TABLET. PO SCH (20:39)
[2020-07-08] MEDS: MELATONIN 3 MG TABLET PO SCH (20:39)
[2020-07-08] MEDS: ALBUTEROL SULFATE 8GM INHALER. INH PRN (21:00)
--- NOTE | 2020-07-08 21:40 | NUR ---
Pt awake, sitting up in bed and talking on the phone at shift change. Pt A/O, calm, and pleasant. Pt cooperative with assessment and compliant with medications administered whole with water. PRN Hydrocodone administered at HS for chronic pain.
--- NOTE | 2020-07-09 06:01 | NUR ---
Specimen for COVID-19 collected this morning, pt tolerated procedure well.
[2020-07-09] MEDS: LIDOCAINE (700MG/PATCH) PATCH. TD SCH (08:00)
[2020-07-09] MEDS: CHOLECALCIFEROL (VITAMIN D3) 1,000 UNIT TABLET PO SCH (08:21)
[2020-07-09] MEDS: VITAMIN B COMPLEX CAPSULE. PO SCH (08:21)
[2020-07-09] MEDS: amLODIPine BESYLATE 5 MG TABLET PO SCH (08:21)
[2020-07-09] MEDS: FLUTICASONE/VILANTEROL 200/25 INHALER. INH SCH (09:00)
[2020-07-09 09:03] VITALS: BP 156/84
--- NOTE | 2020-07-09 12:15 | NUR ---
FINN faxed referral over to Pt[facility] at [facility] [place]. FINN notified the facility that pt was swabbed today; once those results are returned, FINN will up date the facility. If negative, pt will be swabbed for a 2nd negative and then can return to placement early next week.
--- NOTE | 2020-07-09 14:32 | NUR ---
PATIENT IS PLEASANT THIS AM, COOPERATIVE WITH ASSESSMENT AND MEDS ADMINISTRATION, NO BEHAVIOR NOTED. WCTM.
--- NOTE | 2020-07-09 17:54 | PN ---
DATE: 07/09/2020 SUBJECTIVE: The patient is resting, slightly propped up in bed, in no apparent distress. On questioning her, denied any complaint. The nursing staff did not voice any concern. She basically remains completely stable and as far as her COVID-19 infection, her most recent coronavirus by PCR testing was positive on 07/02/2020. PHYSICAL EXAMINATION: GENERAL: On examining her, she looked well and was clearly in no apparent respiratory distress. No pallor, jaundice, cyanosis or thyromegaly. No jugular venous distention. No limb edema. VITAL SIGNS: Her heart rate was 93, blood pressure was 156/84, temperature was 97.5, respiratory rate was 18 and oxygen saturation was 95% on 3.5 liters of oxygen. The rest of clinical exam is stable, has not really changed. Her intake over the last 24 hours was 960, no output was recorded. LABORATORY DATA: Her most recent BUN was 7, creatinine 0.8. Her hemoglobin was 12, hematocrit 36 with normal white cell count and platelets. ASSESSMENT: 1. This is a 70-year-old female patient with COVID-19 positive swabs initially at [facility] and again here on 07/01/2020, she remains completely asymptomatic. 2. Chronic obstructive pulmonary disease that is oxygen dependent. 3. Bipolar disorder, controlled. 4. Chronic low back pain. 5. Essential hypertension. PLAN: Continue with all her current medication. She obviously needs 2 consecutive negative tests for COVID-19 before she can be placed in a shelter facility. HORACIO RAMIREZ MD DR: SHAZIA/deana JOB#: [id number] / [id number]
[2020-07-09 19:09] VITALS: BP 139/64
[2020-07-09] MEDS: MELATONIN 3 MG TABLET PO SCH (20:09)
[2020-07-09] MEDS: MONTELUKAST 10 MG TABLET. PO SCH (20:09)
[2020-07-09] MEDS: ZIPRASIDONE 80 MG CAPSULE. PO SCH (20:10)
[2020-07-09] MEDS: DIVALPROEX ER 250 MG TAB.ER.24H. PO SCH (20:10)
[2020-07-09] MEDS: DIVALPROEX ER 500 MG TAB.ER.24H PO SCH (20:10)
[2020-07-09] MEDS: LOSARTAN 50 MG TABLET. PO SCH (20:11)
[2020-07-09] MEDS: PATCH REMOVAL. MC SCH (20:11)
--- NOTE | 2020-07-10 03:24 | NUR ---
Last evening pt was pleasant and cooperative. She took her meds whole and was social with staff. Prn pain med given HS and has been sleeping well and has had no behaviors this shift.
[2020-07-10 05:29] LABS: HEMATOCRIT 37.4 % (36.0-47.0); HEMOGLOBIN 12.2 g/dL (12.0-15.5); RED BLOOD COUNT 4.23 x10^6/uL (3.50-5.40); RED CELL DISTRIBUTION WIDTH 14.3 % (11.5-14.5); WHITE BLOOD COUNT 5.6 x10^3/uL (4.0-11.0)
[2020-07-10 05:50] LABS: ALBUMIN 2.6 g/dL (3.4-5.0); ALBUMIN/GLOBULIN RATIO 0.7 (1.0-1.7); CALCIUM 8.9 mg/dL (8.5-10.1); CREATININE 0.8 mg/dL (0.6-1.0); GFR 70.9; POTASSIUM 4.1 mmol/L (3.5-5.1); TOTAL BILIRUBIN 0.2 mg/dL (0.2-1.0); TOTAL PROTEIN 6.6 g/dL (6.4-8.2)
[2020-07-10] MEDS: amLODIPine BESYLATE 5 MG TABLET PO SCH (07:46)
[2020-07-10] MEDS: VITAMIN B COMPLEX CAPSULE. PO SCH (07:47)
[2020-07-10] MEDS: CHOLECALCIFEROL (VITAMIN D3) 1,000 UNIT TABLET PO SCH (07:47)
[2020-07-10] MEDS ORDERED: LIDOCAINE (700MG/PATCH) PATCH. TD PRN (08:00)
[2020-07-10 08:33] VITALS: BP 134/56
[2020-07-10] MEDS: FLUTICASONE/VILANTEROL 200/25 INHALER. INH SCH (09:00)
[2020-07-10] MEDS: ALBUTEROL SULFATE 8GM INHALER. INH PRN (09:00)
--- NOTE | 2020-07-10 18:50 | PN ---
DATE: 07/10/2020 SUBJECTIVE: The patient is resting, slightly propped up in her recliner, in no apparent distress. She denied any complaint. The nursing staff did not voice any concerns that she had an uneventful night. PHYSICAL EXAMINATION: GENERAL: When I examined her, she was pale, but no jaundice, cyanosis or thyromegaly. No jugular venous distention. No limb edema. VITAL SIGNS: Her heart rate was 61, blood pressure was 134/56, temperature 97.2, respiratory rate 20, and oxygen saturation 100% on 3.5 liters of oxygen. HEAD, EYES, EARS, NOSE AND THROAT: Showed normocephalic, atraumatic. NECK: Supple. HEART: Showed normal first and second heart sounds. No gallop or murmur. CHEST: Shows central trachea, equal bilateral expansion, air entry, vesicular sounds. No crepitation or rhonchi. ABDOMEN: Distended, soft, nontender. NEUROLOGIC: She was awake, alert, responding appropriately. All cranial nerves intact. She moves extremities without difficulty, although she is mostly chair bound, bed bound. Her intake over the last 24 hours was 1560, no output was recorded. LABORATORY DATA: Her lab work this morning showed a serum sodium 143, potassium 4.1, chloride 103, bicarbonate 41, BUN 10, creatinine 0.8, estimated GFR was 71 mL per minute, her glucose was 91, calcium was 8.9. Total bilirubin, AST, ALT, alkaline phosphatase were normal. Total protein was 6.6, albumin 2.6. Her white cell count 5.6. Hemoglobin 12.2, hematocrit 37, MCV 89 and platelet count 246,000. ASSESSMENT: 1. This is a 70-year-old female patient with COVID-19 positive swabs, initially at [facility] and again here on 07/01/2020. She remains completely asymptomatic and as far as her COVID-19 infection. 2. Chronic obstructive pulmonary disease that is oxygen dependent. 3. Bipolar disorder, controlled. 4. Chronic low back pain. 5. Essential hypertension. PLAN: Continue with all her current medication. She obviously needs 2 consecutive negative tests for COVID-19 before she can be placed in a senior living facility. HORACIO RAMIREZ MD DR: SHAZIA/deana JOB#: [id number] / [id number]
[2020-07-10 20:00] VITALS: BP 137/64
[2020-07-10] MEDS: MELATONIN 3 MG TABLET PO SCH (20:48)
[2020-07-10] MEDS: DIVALPROEX ER 250 MG TAB.ER.24H. PO SCH (20:49)
[2020-07-10] MEDS: MONTELUKAST 10 MG TABLET. PO SCH (20:49)
[2020-07-10] MEDS: ZIPRASIDONE 80 MG CAPSULE. PO SCH (20:49)
[2020-07-10] MEDS: DIVALPROEX ER 500 MG TAB.ER.24H PO SCH (20:49)
[2020-07-10] MEDS: PATCH REMOVAL. MC SCH (21:00)
[2020-07-10] MEDS: LOSARTAN 50 MG TABLET. PO SCH (21:04)
[2020-07-10] MEDS: HYDROcodone/APAP 5/325MG 1 TAB TABLET PO PRN (21:07)
--- NOTE | 2020-07-11 06:03 | NUR ---
Pt was pleasant and cooperative during assessment. She c/o back pain and requested medications. Pt slept well through the night; up once to toilet. Will continue to monitor.
[2020-07-11 06:39] VITALS: BP 134/57
[2020-07-11] MEDS: CHOLECALCIFEROL (VITAMIN D3) 1,000 UNIT TABLET PO SCH (08:07)
[2020-07-11] MEDS: amLODIPine BESYLATE 5 MG TABLET PO SCH (08:07)
[2020-07-11] MEDS: ACETAMINOPHEN 500 MG TABLET PO PRN (08:07)
[2020-07-11] MEDS: VITAMIN B COMPLEX CAPSULE. PO SCH (08:08)
[2020-07-11] MEDS: cloNIDine TTS-3 1 PATCH PATCH TD SCH (08:09)
[2020-07-11] MEDS: FLUTICASONE/VILANTEROL 200/25 INHALER. INH SCH (08:09)
[2020-07-11] MEDS: ALBUTEROL SULFATE 8GM INHALER. INH PRN (08:10)
[2020-07-11 08:24] VITALS: BP 156/68
--- NOTE | 2020-07-11 18:38 | PN ---
DATE: 07/11/2020 SUBJECTIVE: The patient is resting, slightly propped up in bed, in no apparent distress. She is awake and alert. Denied any complaint. The nursing staff did not voice any concerns that she is independent in all activities of ADLs. Unfortunately, her coronavirus-2 PCR is still detectable. However, she continued to be completely asymptomatic. OBJECTIVE: GENERAL: On examining her today, she looked well and was clearly in no apparent respiratory distress. VITAL SIGNS: Her heart rate was 78, blood pressure was 156/68, temperature 97.3, respiratory rate 20, and oxygen saturation was 100% on 3.5 liters of oxygen. The rest of clinical exam is stable, has not really changed. LABORATORY DATA: Her intake over the last 24 hours was 900, no output was recorded. As of recently, her BUN was 10, creatinine 0.8. Her most recent hemoglobin was 12, hematocrit 37 with normal white cell count and platelets. ASSESSMENT: 1. This is a 70-year-old female patient with COVID-19 positive swabs initially at [facility] and again on 07/01/2020 as well as 07/09/2020. She remains completely asymptomatic as far as her COVID-19 infection. 2. Chronic obstructive pulmonary disease that is oxygen dependent. 3. Bipolar disorder, controlled. 4. Chronic low back pain. 5. Essential hypertension. PLAN: Again continue with all her current medications. Continue with oxygen supplementation. She would obviously will need 2 consecutive negative tests for COVID-19 before she can be placed in a correction facility. HORACIO RAMIREZ MD DR: SHAZIA/deana JOB#: [id number] / [id number]
[2020-07-11 19:21] VITALS: BP 103/68
[2020-07-11] MEDS: PATCH REMOVAL. MC SCH (21:00)
[2020-07-11] MEDS: LOSARTAN 50 MG TABLET. PO SCH (22:18)
[2020-07-11] MEDS: MONTELUKAST 10 MG TABLET. PO SCH (22:19)
[2020-07-11] MEDS: ZIPRASIDONE 80 MG CAPSULE. PO SCH (22:19)
[2020-07-11] MEDS: DIVALPROEX ER 500 MG TAB.ER.24H PO SCH (22:19)
[2020-07-11] MEDS: DIVALPROEX ER 250 MG TAB.ER.24H. PO SCH (22:19)
[2020-07-11] MEDS: MELATONIN 3 MG TABLET PO SCH (22:19)
[2020-07-11] MEDS: HYDROcodone/APAP 5/325MG 1 TAB TABLET PO PRN (22:20)
--- NOTE | 2020-07-11 22:46 | PDOC ---
Exam Note: Mik Note: This is a late entry for 07/10/2020. Please also refer to the separate dictated note~for this date of service dictated separately.~Patient seen individually. Discussed the patient with Nursing staff reviewed the chart.~Reviewed interim history and current functioning. Reviewed vital signs,~Labs/ Radiology~and cur rent medications noted below. Continue current treatment with the changes noted in the dictated addendum note Assessment: Vital Signs/I&O: Vital Signs Date Time Temp Pulse Resp B/P (MAP) Pulse Ox O2 Delivery O2 Flow Rate FiO2 07/11/20 22:20 20 98 Nasal Cannula 3.5 07/11/20 22:18 83 103/68 07/11/20 19:21 98.8 I & O 07/10/20 07/10/20 07/11/20 14:59 22:59 06:59 Intake Total 500 ml 360 ml 240 ml Balance 500 ml 360 ml 240 ml Current Medications: I have reviewed the current psychotropics carefully including drug interactions. Risk benefit ratio favors no change other than as noted in my dictated progress note. Diagnosis: Problems: (1) Bipolar 1 disorder, manic, moderate (2) Impulse control disorder, unspecified (3) Anxiety disorder, unspecified (4) Shortness of breath TYLER NEGRO MD Jul 11, 2020 22:46
--- NOTE | 2020-07-12 03:04 | NUR ---
Pt pleasant and cooperative this evening. She has a dry cough immediately after using her albuterol inhaler. She states this is normal for her. Pt resting soundly. Will continue to monitor.
--- NOTE | 2020-07-12 06:22 | PN ---
DATE: 07/10/2020 SUBJECTIVE: The patient was seen on telehealth rounds afternoon of 07/10 with SHUKRI Warner. The patient [facility] being [facility] for her bipolar disorder, turned up COVID positive and has been transferred to the COVID unit and I have been asked to follow her in consult, which is where I am seeing her on 07/10. She has been fairly appropriate and when questions, states she is happy because she has a TV in her own room and quite comfortable. REVIEW OF SYSTEMS: No CV, , pulmonary, eye system symptoms on review. MENTAL STATUS EXAMINATION: The patient is reasonably oriented, readily recognized me. Speech is coherent, abstraction fair, computation somewhat impaired. Mood and affect stable. LABORATORY DATA: Reviewed. IMPRESSION: Bipolar disorder, mixed with psychotic features; anxiety disorder, unspecified; rest unchanged. PLAN: Continue Geodon 80 mg at bedtime, melatonin 10.5 mg at bedtime; Depakote ER 1250 mg at bedtime, Zyprexa and Ativan p.r.n. Adjust further as clinically indicated. MAN Erik NEGRO MD DR: MICHELLE/deana JOB#: [id number] / [id number]
[2020-07-12 07:46] VITALS: BP 160/57
[2020-07-12] MEDS: CHOLECALCIFEROL (VITAMIN D3) 1,000 UNIT TABLET PO SCH (08:09)
[2020-07-12] MEDS: VITAMIN B COMPLEX CAPSULE. PO SCH (08:09)
[2020-07-12] MEDS: FLUTICASONE/VILANTEROL 200/25 INHALER. INH SCH (08:09)
[2020-07-12] MEDS: ACETAMINOPHEN 500 MG TABLET PO PRN (08:09)
[2020-07-12] MEDS: amLODIPine BESYLATE 5 MG TABLET PO SCH (08:09)
--- NOTE | 2020-07-12 11:33 | PN ---
DATE: 07/12/2020 SUBJECTIVE: The patient is resting, slightly propped up in her recliner, in no apparent respiratory distress. On questioning her, denied any complaint and nursing staff did not voice any concern. PHYSICAL EXAMINATION: GENERAL: On examining her, she looked well and was clearly in no apparent respiratory distress. No pallor, jaundice, cyanosis or thyromegaly. No jugular venous distention. No limb edema. VITAL SIGNS: Her heart rate was 66, blood pressure was 160/57, temperature was 97.6, respiratory rate was 20, and oxygen saturation was 99% on FiO2 of 3-1/2 liters of oxygen by nasal cannula. HEENT: Showed normocephalic, atraumatic. NECK: Supple. CARDIAC: Normal first and second heart sounds. No gallop or murmur. CHEST: Showed central trachea, equally reduced expansion, reduced air entry, vesicular sounds. No crepitation or rhonchi. ABDOMEN: Distended, soft, nontender. NEUROLOGIC: She was awake, alert, responding appropriately. All cranial nerves intact. She moves extremities without difficulty. Her intake was 1100, no output was recorded. No lab works done this morning. ASSESSMENT: 1. This is a 70-year-old female patient with COVID-19 positive swabs initially at [facility] and again on 07/01/2020 and 07/09/2020. She remains completely asymptomatic and as far as her COVID-19 infection. 2. Chronic obstructive pulmonary disease that is oxygen dependent. 3. Bipolar disorder with psychotic feature, reasonably controlled. 4. Chronic low back pain. 5. Essential hypertension. PLAN: Again to continue with all her current medications including psychotropic medication as ordered by Dr. Watt. Continue with oxygen supplementation. She will obviously need 2 consecutive negative tests for COVID before she can be placed in a intermediate facility. HORACIO RAMIREZ MD DR: SHAZIA/deana JOB#: [id number] / [id number]
[2020-07-12 19:22] VITALS: BP 148/68
[2020-07-12] MEDS: MONTELUKAST 10 MG TABLET. PO SCH (19:59)
[2020-07-12] MEDS: ZIPRASIDONE 80 MG CAPSULE. PO SCH (19:59)
[2020-07-12] MEDS: HYDROcodone/APAP 5/325MG 1 TAB TABLET PO PRN (19:59)
[2020-07-12] MEDS: DIVALPROEX ER 500 MG TAB.ER.24H PO SCH (20:00)
[2020-07-12] MEDS: MELATONIN 3 MG TABLET PO SCH (20:00)
[2020-07-12] MEDS: LOSARTAN 50 MG TABLET. PO SCH (20:00)
[2020-07-12] MEDS: DIVALPROEX ER 250 MG TAB.ER.24H. PO SCH (20:00)
[2020-07-12] MEDS: PATCH REMOVAL. MC SCH (21:00)
[2020-07-13] MEDS: ACETAMINOPHEN 500 MG TABLET PO PRN (08:28)
[2020-07-13] MEDS: CHOLECALCIFEROL (VITAMIN D3) 1,000 UNIT TABLET PO SCH (08:28)
[2020-07-13] MEDS: amLODIPine BESYLATE 5 MG TABLET PO SCH (08:28)
[2020-07-13] MEDS: FLUTICASONE/VILANTEROL 200/25 INHALER. INH SCH (08:29)
[2020-07-13] MEDS: VITAMIN B COMPLEX CAPSULE. PO SCH (08:29)
[2020-07-13 08:32] VITALS: BP 172/72
--- NOTE | 2020-07-13 19:26 | PN ---
DATE: 07/13/2020 SUBJECTIVE: The patient is resting in her recliner, in no apparent respiratory distress. On questioning her, denied any complain to nursing staff, did not voice any concern. PHYSICAL EXAMINATION: GENERAL: When I examined her, she was somewhat pale, no jaundice, cyanosis or thyromegaly. No jugular venous distention. No lower limb edema. VITAL SIGNS: Her heart rate was 96, blood pressure was 172/72, temperature 97.1, respiratory rate was 18 and oxygen saturation was 96% on 3.5 liters of oxygen. HEENT: Showed normocephalic, atraumatic. NECK: Supple. HEART: Normal first and second heart sounds. No gallop or murmur. CHEST: Clear to auscultation. No crepitation or rhonchi. ABDOMEN: Distended, soft, nontender. NEUROLOGIC: She is awake, alert, responding appropriately. All cranial nerves intact. She moves extremities without difficulty. Her intake over the last 24 hours was 1320, no output was recorded. No lab works available today. ASSESSMENT: 1. This is a 70-year-old female patient with COVID-19 positive swabs initially at [facility] and again on 07/01/2020 and 07/09/2020, she remains completely asymptomatic as far as her COVID-19 infection is concerned. 2. Chronic obstructive pulmonary disease that is oxygen dependent. 3. Bipolar disorder with psychotic feature, reasonably controlled. 4. Chronic low back pain. 5. Essential hypertension. PLAN: Again is to continue with all her current medications including psychotropic medication. Continue with oxygen supplementation. Continue to monitor her COVID testing and once she has 2 consecutive negative test, she can be placed in a intermediate facility. HORACIO RAMIREZ MD DR: SHAZIA/deana JOB#: [id number] / [id number]
[2020-07-13 19:50] VITALS: BP 155/63
[2020-07-13] MEDS: ZIPRASIDONE 80 MG CAPSULE. PO SCH (20:11)
[2020-07-13] MEDS: MELATONIN 3 MG TABLET PO SCH (20:12)
[2020-07-13] MEDS: LOSARTAN 50 MG TABLET. PO SCH (20:12)
[2020-07-13] MEDS: DIVALPROEX ER 250 MG TAB.ER.24H. PO SCH (20:12)
[2020-07-13] MEDS: MONTELUKAST 10 MG TABLET. PO SCH (20:13)
[2020-07-13] MEDS: DIVALPROEX ER 500 MG TAB.ER.24H PO SCH (20:13)
[2020-07-13] MEDS: HYDROcodone/APAP 5/325MG 1 TAB TABLET PO PRN (20:13)
[2020-07-13] MEDS: PATCH REMOVAL. MC SCH (21:00)
--- NOTE | 2020-07-13 21:38 | NUR ---
pts "lidoderm patch removal" is qHS but the lidoderm patch order is PRN. I un-administered patch removal due to pt not having pt administered.
[2020-07-14 07:52] VITALS: BP 164/61
[2020-07-14] MEDS: VITAMIN B COMPLEX CAPSULE. PO SCH (08:24)
[2020-07-14] MEDS: ACETAMINOPHEN 500 MG TABLET PO PRN (08:24)
[2020-07-14] MEDS: CHOLECALCIFEROL (VITAMIN D3) 1,000 UNIT TABLET PO SCH (08:24)
[2020-07-14] MEDS: FLUTICASONE/VILANTEROL 200/25 INHALER. INH SCH (08:25)
[2020-07-14] MEDS: amLODIPine BESYLATE 5 MG TABLET PO SCH (08:25)
--- NOTE | 2020-07-14 18:57 | PN ---
DATE: 07/14/2020 SUBJECTIVE: The patient is resting, slightly propped up in bed, in her recliner, in no apparent distress. On questioning her, denied any complaint. Nursing staff did not voice any concerns, said she had an uneventful night. PHYSICAL EXAMINATION: GENERAL: On examining her, she looked well and was clearly in no apparent respiratory distress. No pallor, jaundice, cyanosis or thyromegaly. No jugular venous distention or limb edema. VITAL SIGNS: Her heart rate was 72, blood pressure was 164/61, temperature 98.1, respiratory rate 22, and oxygen saturation was 98% on 3.5 liters of oxygen by nasal cannula. The rest of clinical exam is stable. Her intake over the last 24 hours was 1320, no output was recorded. LABORATORY DATA: Her most recent lab work showed white cell count 5600, hemoglobin 12, hematocrit 37, MCV 89 and platelet count 246,000. Serum sodium 143, potassium 4.1, chloride 103, bicarbonate 41, anion gap of 1, BUN 10, creatinine 0.8, estimated GFR was 70 mL per minute, her glucose was 91, calcium was 8.9. Total bilirubin, AST, ALT, alkaline phosphatase were normal. Total protein was 6.6, albumin was 2.6. ASSESSMENT: 1. This is a 70-year-old female patient with COVID-19 positive swabs initially at [facility] and again on 07/01/2020, on 07/09/2020. She remains completely asymptomatic as far as her COVID-19 infection is concerned. 2. Chronic obstructive pulmonary disease that is oxygen dependent. 3. Bipolar disorder with psychotic features, reasonably controlled. 4. Chronic low back pain. 5. Essential hypertension. PLAN: Plan is to again to continue with all her current medications including psychotropic medication. Continue oxygen supplementation. Continue to monitor her COVID testing and once she has 2 consecutive negative, thus she can be placed in a half-way facility. HORACIO RAMIREZ MD DR: SHAZIA/deana JOB#: [id number] / [id number]
[2020-07-14 19:35] VITALS: BP 140/62
[2020-07-14] MEDS: PATCH REMOVAL. MC SCH (19:44)
[2020-07-14] MEDS: MONTELUKAST 10 MG TABLET. PO SCH (20:30)
[2020-07-14] MEDS: DIVALPROEX ER 500 MG TAB.ER.24H PO SCH (20:30)
[2020-07-14] MEDS: LOSARTAN 50 MG TABLET. PO SCH (20:30)
[2020-07-14] MEDS: MELATONIN 3 MG TABLET PO SCH (20:30)
[2020-07-14] MEDS: DIVALPROEX ER 250 MG TAB.ER.24H. PO SCH (20:31)
[2020-07-14] MEDS: HYDROcodone/APAP 5/325MG 1 TAB TABLET PO PRN (20:31)
[2020-07-14] MEDS: ZIPRASIDONE 80 MG CAPSULE. PO SCH (20:31)
[2020-07-14] MEDS ORDERED: PATCH REMOVAL. MC PRN (21:45)
[2020-07-15 07:30] VITALS: BP 168/70
[2020-07-15] MEDS: VITAMIN B COMPLEX CAPSULE. PO SCH (07:34)
[2020-07-15] MEDS: CHOLECALCIFEROL (VITAMIN D3) 1,000 UNIT TABLET PO SCH (07:34)
[2020-07-15] MEDS: amLODIPine BESYLATE 5 MG TABLET PO SCH (07:34)
[2020-07-15] MEDS: FLUTICASONE/VILANTEROL 200/25 INHALER. INH SCH (07:34)
--- NOTE | 2020-07-15 12:18 | PN ---
DATE: 07/15/2020 ATTENDING PHYSICIAN: Dr. Be. SUBJECTIVE: No new complaints. She is comfortable. OBJECTIVE FINDINGS: VITAL SIGNS: The patient remains afebrile. Blood pressure is 168/70, pulse 72 and regular, oxygen saturation 98% on 3 liters of oxygen per nasal cannula. HEENT: Head is without trauma. Pupils are reactive. Sclerae nonicteric. Oropharynx is clear. NECK: Supple, no bruits identified. LUNGS: Clear. CARDIOVASCULAR: Showed regular heart tones. No gallops. Peripheral pulses are palpable and full. ABDOMEN: Soft, nontender, no organomegaly. Bowel sounds are hypoactive. EXTREMITIES: Show no cyanosis or edema. NEUROLOGIC: Focally intact. Affect is normal. Speech is fluent. ASSESSMENT: 1. A 70-year-old female with COVID-19 positive swabs in the senior [facility] unit. They remained persistently positive most recently in 07/09/2020. She remains totally asymptomatic. 2. Chronic obstructive pulmonary disease, oxygen dependent. 3. Bipolar disorder, controlled. 4. Chronic back pain, stable. 5. Essential hypertension. PLAN: 1. Recheck COVID swab today. 2. Meds were reviewed. 3. Diet as tolerated. 4. Await placement. TAMI BE MD DR: KELIN/deana JOB#: [id number] / [id number]
--- NOTE | 2020-07-15 14:13 | NUR ---
FINN contacted Patt at [facility] to discuss their protocol for returning to them. Although pt is positive and asymptomatic, she must have 2 negatives before being able to return. They will not quarantine her to her room, as they are [facility]. Pt will be swabbed again on and FINN will plan to contact Patt with those results once they have returned.
[2020-07-15 19:40] VITALS: BP 156/50
[2020-07-15] MEDS: DIVALPROEX ER 500 MG TAB.ER.24H PO SCH (20:28)
[2020-07-15] MEDS: ZIPRASIDONE 80 MG CAPSULE. PO SCH (20:28)
[2020-07-15] MEDS: DIVALPROEX ER 250 MG TAB.ER.24H. PO SCH (20:28)
[2020-07-15] MEDS: MELATONIN 3 MG TABLET PO SCH (20:28)
[2020-07-15] MEDS: MONTELUKAST 10 MG TABLET. PO SCH (20:29)
[2020-07-15] MEDS: LOSARTAN 50 MG TABLET. PO SCH (20:29)
[2020-07-15] MEDS: HYDROcodone/APAP 5/325MG 1 TAB TABLET PO PRN (20:29)
[2020-07-16 08:00] VITALS: BP 142/54
[2020-07-16] MEDS: amLODIPine BESYLATE 5 MG TABLET PO SCH (08:02)
[2020-07-16] MEDS: VITAMIN B COMPLEX CAPSULE. PO SCH (08:02)
[2020-07-16] MEDS: CHOLECALCIFEROL (VITAMIN D3) 1,000 UNIT TABLET PO SCH (08:03)
[2020-07-16] MEDS: FLUTICASONE/VILANTEROL 200/25 INHALER. INH SCH (08:05)
[2020-07-16] MEDS: ACETAMINOPHEN 500 MG TABLET PO PRN (12:17)
--- NOTE | 2020-07-16 12:29 | PN ---
DATE: 07/16/2020 ATTENDING PHYSICIAN: Dr. Be. SUBJECTIVE: The patient is in fairly good spirits. She has a good face and she has no new complaints. She is comfortable. OBJECTIVE FINDINGS: VITAL SIGNS: The patient's temperature is 97.4 degrees Fahrenheit, blood pressure 142/54 mmHg, oxygen saturation 96% on 3 liters of oxygen by nasal cannula. HEENT: Head is without trauma. The pupils are reactive. Sclerae are nonicteric. Oropharynx is clear. NECK: Supple, no bruits. LUNGS: Good breath sounds. No wheezing or rales. CARDIOVASCULAR: Showed regular heart tones. No gallops. Peripheral pulses are palpable and full. ABDOMEN: Soft, nontender, no organomegaly. Bowel sounds were normoactive. EXTREMITIES: Showed no cyanosis or edema. SKIN: Warm and dry. NEUROLOGIC: Focally intact. Affect is normal. Speech is fluent. ASSESSMENT: 1. A 70-year-old female with COVID-19 positive swabs in the [facility], they remain persistently positive and she remains totally asymptomatic. 2. Chronic obstructive pulmonary disease, oxygen dependent, stable. 3. Bipolar disorder, controlled. 4. Chronic low back pain, stable. 5. Essential hypertension, normotensive. PLAN: 1. Medications reviewed. 2. Diet as tolerated. 3. Recheck COVID swabs when available. 4. We are working on placement. TAMI BE MD DR: KELIN/deana JOB#: [id number] / [id number]
[2020-07-16 19:10] VITALS: BP 148/65
[2020-07-16] MEDS: MONTELUKAST 10 MG TABLET. PO SCH (20:07)
[2020-07-16] MEDS: MELATONIN 3 MG TABLET PO SCH (20:08)
[2020-07-16] MEDS: HYDROcodone/APAP 5/325MG 1 TAB TABLET PO PRN (20:08)
[2020-07-16] MEDS: DIVALPROEX ER 500 MG TAB.ER.24H PO SCH (20:08)
[2020-07-16] MEDS: DIVALPROEX ER 250 MG TAB.ER.24H. PO SCH (20:09)
[2020-07-16] MEDS: ZIPRASIDONE 80 MG CAPSULE. PO SCH (20:09)
[2020-07-16] MEDS: LOSARTAN 50 MG TABLET. PO SCH (20:09)
--- NOTE | 2020-07-17 03:05 | NUR ---
Report received from SHUKRI Bui. Assumed care of pt at this time. Upon rounding, pt resting comfortably in bed with call light in reach.
[2020-07-17 08:00] VITALS: BP 142/54
[2020-07-17] MEDS: VITAMIN B COMPLEX CAPSULE. PO SCH (08:22)
[2020-07-17] MEDS: DOCUSATE SODIUM 100 MG CAPSULE PO PRN (08:22)
[2020-07-17] MEDS: CHOLECALCIFEROL (VITAMIN D3) 1,000 UNIT TABLET PO SCH (08:22)
[2020-07-17] MEDS: amLODIPine BESYLATE 5 MG TABLET PO SCH (08:25)
[2020-07-17] MEDS: ACETAMINOPHEN 500 MG TABLET PO PRN (08:29)
[2020-07-17] MEDS: FLUTICASONE/VILANTEROL 200/25 INHALER. INH SCH (09:00)
--- NOTE | 2020-07-17 12:20 | PN ---
DATE: 07/17/2020 SUBJECTIVE: No new complaints. She is doing well. OBJECTIVE: VITAL SIGNS: Blood pressure today is 142/54 mmHg. She is afebrile, pulse is regular and oxygen saturations are normal at 97% on 3 liters nasal cannula, which is her baseline. Most recent COVID-19 swab was reported negative on 07/15. Another swab done yesterday is pending. HEENT: Head is without trauma. Pupils are reactive. Sclerae nonicteric. Oropharynx clear. NECK: Supple, no bruits. LUNGS: Otherwise clear with good breath sounds. CARDIOVASCULAR: Showed regular heart tones. No gallops. Peripheral pulses are palpable and full. ABDOMEN: Soft, scaphoid, nontender. Bowel sounds are normoactive. EXTREMITIES: Show no cyanosis or edema. NEUROLOGIC: Focally intact. Speech is fluent. SKIN: Warm and dry. ASSESSMENT: 1. A 70-year-old female with COVID-19 positive swabs in the [facility]. She has remained asymptomatic on the medical floor. 2. Chronic obstructive pulmonary disease. 3. Bipolar disorder. 4. Chronic low back pain. 5. Essential hypertension. PLAN: 1. We are working on placement advantage facility. 2. Await second negative swab. 3. Meds reviewed. TAMI BE MD DR: KELIN/deana JOB#: [id number] / [id number]
--- NOTE | 2020-07-17 16:46 | NUR ---
PT'S SECOND COVID TEST CAME BACK NEGATIVE AND WILL TRANSFER BACK TO [facility] ON MONDAY. PT TOLERATING PO AND DENIES ANY COMPLAINTS. PT PROGRESSING TOWARDS GOALS.
[2020-07-17 19:37] VITALS: BP 144/64
[2020-07-17] MEDS: DIVALPROEX ER 500 MG TAB.ER.24H PO SCH (20:02)
[2020-07-17] MEDS: DIVALPROEX ER 250 MG TAB.ER.24H. PO SCH (20:02)
[2020-07-17] MEDS: HYDROcodone/APAP 5/325MG 1 TAB TABLET PO PRN (20:03)
[2020-07-17] MEDS: ZIPRASIDONE 80 MG CAPSULE. PO SCH (20:03)
[2020-07-17] MEDS: LOSARTAN 50 MG TABLET. PO SCH (20:03)
[2020-07-17] MEDS: MONTELUKAST 10 MG TABLET. PO SCH (20:03)
[2020-07-17] MEDS: MELATONIN 3 MG TABLET PO SCH (20:03)
[2020-07-18] MEDS: VITAMIN B COMPLEX CAPSULE. PO SCH (08:42)
[2020-07-18] MEDS: amLODIPine BESYLATE 5 MG TABLET PO SCH (08:43)
[2020-07-18] MEDS: CHOLECALCIFEROL (VITAMIN D3) 1,000 UNIT TABLET PO SCH (08:47)
[2020-07-18] MEDS: cloNIDine TTS-3 1 PATCH PATCH TD SCH (08:48)
[2020-07-18] MEDS: FLUTICASONE/VILANTEROL 200/25 INHALER. INH SCH (08:48)
--- NOTE | 2020-07-18 10:18 | NUR ---
FINN contacted [facility] to discuss pt discharge. FINN requested that pt discharge back to [facility] today; however, it was stated by staff that admissions are not completed on weekends as administration is not present in the building. FINN will plan to set up transportation for Monday morning and make all arrangements for pt to return. FINN will also plan to fax over the negative results to the facility to confirm that she is negative and will be discharged.
[2020-07-18 10:51] VITALS: BP 141/59
--- NOTE | 2020-07-18 13:23 | PN ---
DATE: 07/18/2020 ATTENDING PHYSICIAN: Dr. Be SUBJECTIVE: No complaints. She is doing well. Finally, we have 2 consecutive negative coronavirus swabs reported back yesterday. OBJECTIVE FINDINGS: VITAL SIGNS: She is afebrile. Blood pressure is 144/64 mmHg, oxygen saturation 96% on 3 liters of oxygen fix, which is her baseline. HEENT: Head is without trauma. Pupils are reactive. Sclerae nonicteric. Oropharynx clear. NECK: Supple, no bruits. LUNGS: Otherwise, clear to auscultation. CARDIOVASCULAR: Showed regular heart tones. ABDOMEN: Soft. EXTREMITIES: Show no cyanosis or edema. NEUROLOGIC: Focally intact. Speech is fluent. SKIN: Warm and dry. ASSESSMENT: 1. A 70-year-old female with COVID-19 positive swabs from the [facility]. She is totally asymptomatic. 2. She now has consecutive back to back negative swabs. 3. Chronic obstructive pulmonary disease. 4. Bipolar disorder. 5. Chronic low back pain. 6. Essential hypertension. PLAN: 1. We are in the process of getting her back to her facility, which is [facility]. 2. Meds regulated. 3. We are waiting for placement through welfare case worker. TAMI BE MD DR: KELIN/deana JOB#: [id number] / [id number]
[2020-07-18 19:25] VITALS: BP 146/73
[2020-07-18] MEDS: MONTELUKAST 10 MG TABLET. PO SCH (20:24)
[2020-07-18] MEDS: LOSARTAN 50 MG TABLET. PO SCH (20:25)
[2020-07-18] MEDS: DIVALPROEX ER 500 MG TAB.ER.24H PO SCH (20:25)
[2020-07-18] MEDS: MELATONIN 3 MG TABLET PO SCH (20:25)
[2020-07-18] MEDS: DIVALPROEX ER 250 MG TAB.ER.24H. PO SCH (20:26)
[2020-07-18] MEDS: HYDROcodone/APAP 5/325MG 1 TAB TABLET PO PRN (20:26)
[2020-07-18] MEDS: ZIPRASIDONE 80 MG CAPSULE. PO SCH (20:29)
[2020-07-19] MEDS: CHOLECALCIFEROL (VITAMIN D3) 1,000 UNIT TABLET PO SCH (07:54)
[2020-07-19] MEDS: VITAMIN B COMPLEX CAPSULE. PO SCH (07:55)
[2020-07-19] MEDS: FLUTICASONE/VILANTEROL 200/25 INHALER. INH SCH (07:55)
[2020-07-19] MEDS: amLODIPine BESYLATE 5 MG TABLET PO SCH (07:55)
[2020-07-19 09:31] VITALS: BP 136/75
--- NOTE | 2020-07-19 11:21 | PN ---
DATE: 07/19/2020 ATTENDING PHYSICIAN: Dr. Be. SUBJECTIVE: No new complaints. She is ambulating well. She is tolerating her usual dose of oxygen. She is afebrile. FINDINGS: VITAL SIGNS: Temperature is 98.0 degrees Fahrenheit, blood pressure 136/75 mmHg, oxygen saturation 98% on 3 liters. HEENT: Head is without trauma. Pupils are reactive. Sclerae nonicteric. Oropharynx clear. NECK: Supple, no bruits. LUNGS: Clear with good breath sounds. CARDIOVASCULAR: Showed regular heart sounds, no gallops. ABDOMEN: Soft, nontender. EXTREMITIES: Without edema. NEUROLOGIC: Focally intact. SKIN: Warm and dry. ASSESSMENT: 1. A 70-year-old female with COVID-19 positive swabs from the [facility]. She has remained totally asymptomatic. 2. Consecutive [id number] negative swabs now. 3. Chronic obstructive pulmonary disease. 3. Bipolar disorder. 4. Essential hypertension. PLAN: 1. Tentative plans for discharge to [facility] tomorrow. 2. Meds reviewed. 3. Diet as tolerated. TAMI BE MD DR: KELIN/deana JOB#: [id number] / [id number]
[2020-07-19 19:57] VITALS: BP 170/68
[2020-07-19] MEDS: DIVALPROEX ER 250 MG TAB.ER.24H. PO SCH (20:25)
[2020-07-19] MEDS: MELATONIN 3 MG TABLET PO SCH (20:25)
[2020-07-19] MEDS: DIVALPROEX ER 500 MG TAB.ER.24H PO SCH (20:25)
[2020-07-19] MEDS: MONTELUKAST 10 MG TABLET. PO SCH (20:26)
[2020-07-19] MEDS: ZIPRASIDONE 80 MG CAPSULE. PO SCH (20:26)
[2020-07-19] MEDS: LOSARTAN 50 MG TABLET. PO SCH (20:26)
[2020-07-19] MEDS: HYDROcodone/APAP 5/325MG 1 TAB TABLET PO PRN (20:27)
[2020-07-20 07:24] VITALS: BP 152/80
[2020-07-20 08:22] VITALS: BP 152/80
[2020-07-20] MEDS: VITAMIN B COMPLEX CAPSULE. PO SCH (08:22)
[2020-07-20] MEDS: ALBUTEROL SULFATE 8GM INHALER. INH PRN (08:22)
[2020-07-20] MEDS: amLODIPine BESYLATE 5 MG TABLET PO SCH (08:22)
[2020-07-20] MEDS: CHOLECALCIFEROL (VITAMIN D3) 1,000 UNIT TABLET PO SCH (08:22)
[2020-07-20] MEDS: FLUTICASONE/VILANTEROL 200/25 INHALER. INH SCH (09:00)
--- NOTE | 2020-07-20 09:46 | NUR ---
FINN contacted on Patt, the [employer], to discuss the conversation from the weekend, which she was not aware of. FINN went over the fact that pt had 2 negatives for her covoid tests. Patt has asked to have those records along with all discharge paperwork. FINN will work on getting that care for. As well as transport as they do not offer that at this time.
--- NOTE | 2020-07-20 11:03 | DS ---
DATE OF DISCHARGE: 07/20/2020 ATTENDING PHYSICIAN: Dr. Be FINAL DISCHARGE DIAGNOSES: 1. Quarantine for COVID-19 positive coronavirus swab. 2. Chronic obstructive pulmonary disease with oxygen dependency, no exacerbation. 3. Bipolar disorder. 4. Essential hypertension. HISTORY OF PRESENT ILLNESS: The patient is a 70-year-old female who was on the [facility]. She was exposed to COVID-19 coronavirus and she had no symptoms. She was sent here for basically quarantine. PHYSICAL EXAMINATION: Please see the dictated note. PERTINENT LABORATORY AND X-RAY STUDIES: During the course, she had several hemoglobins drawn, it was 12.2 g/dL, white count was normal. Electrolytes, BUN and creatinine, liver panel all within normal range. Serology, she had multiple coronavirus swabs, the most two recent ones on 07/15/2020 and 07/16/2020 were negative for any detection of virus. COURSE IN THE HOSPITAL: The patient was admitted for quarantine. She was on the COVID side for the duration of 32 days. When her swabs were negative, she was moved to the regular side. Home meds, blood pressure meds and oxygen were continued. She remained totally asymptomatic without any fevers, chills, cough, congestion. On the 32nd hospital day, the patient was accepted back to [facility] with reassurance that she had 2 negative COVID swabs consecutively. Her discharge meds are unchanged. She will continue her albuterol, amlodipine 5 mg daily, calcium b.i.d., cholecalciferol, clonidine TTS 3 patch weekly, Depakote, docusate, fluticasone, hydrocodone p.r.n. pain, lorazepam p.r.n. anxiety, magnesium hydroxide, melatonin, methyl salicylate, Singulair, Zyprexa, MiraLax, vitamin B and Geodon dose is unchanged. Her prognosis is fair. She was discharged from our hospital in stable condition with explicit instructions and followup care. TAMI BE MD DR: KELIN/deana JOB#: [id number] / [id number] HORACIO Feliz MD
--- NOTE | 2020-07-20 14:24 | NUR ---
NSG NOTE; DISCHARGE VERBAL AND WRITTEN DISCHARGE INSTRUCTIONS GIVEN TO PT WITH VERBAL UNDERSTANDING WRITTEN RX GIVEN TO PT. RX FOR DEPAKOTE, CLONIDINE PATCH, AND NORVASC CALLED TO PT'S PHARMACY DISCHARGED FOR RETURN TO [facility]IST[facility]IV[facility]AC[facility] VIA W/C ACCOMP BY DAUGHTER WHO IS GIVING PT A RIDE
== END 2020-07-20 13:55 | disposition home or self-care (01) | DRG 177 ==
LOC: 1 SOUTH 23:30
PROVIDERS: ADMIT Internal Medicine; ATTEND Internal Medicine
DX: U07.1 COVID-19 (principal); E43 Unspecified severe protein-calorie malnutrition; F31.64 Bipolar disorder, current episode mixed, severe, with psychotic features; E78.5 Hyperlipidemia, unspecified; F41.9 Anxiety disorder, unspecified; F63.9 Impulse disorder, unspecified; G89.29 Other chronic pain; I10 Essential (primary) hypertension; J44.9 Chronic obstructive pulmonary disease, unspecified; Z87.891 Personal history of nicotine dependence; Z99.81 Dependence on supplemental oxygen; M54.5 Low back pain; Z68.28 Body mass index [BMI] 28.0-28.9, adult; Z79.899 Other long term (current) drug therapy
CPT/HCPCS: 36415; 80053; 85027; J7613; U0003-CS